=== PATIENT | female | born 1955 | race Caucasian/White ===

== ENCOUNTER → 2017-10-19 13:35 | Outpatient (CLI) | payer BC, SELFPAY ==
[2017-10-19 14:56] LABS: AST(SGOT) 19 U/L (15-37); Alanine Aminotransfer ALT/SGPT 27 U/L (13-56); Albumin, Serum 3.6 g/dL (3.2-5.0); Alkaline Phosphatase 71 U/L (45-117); Bilirubin, Direct 0.13 mg/dL (0.00-0.30); Cholesterol 133 mg/dL (200); Globulin 3.6 g/dL (2.2-4.2); High Density Lipoprotein 34 mg/dL; Protein, Total 7.2 g/dL (6.4-8.2); Triglycerides 196 mg/dL; Very Low Density Lipoprotein 39 mg/dL (5-40)
== END ==
PROVIDERS: Family Provider Internal Medicine; PCP Internal Medicine; Visit Provider Internal Medicine Cardiovascular Disease
DX: E78.5 Hyperlipidemia, unspecified (principal); I25.10 Atherosclerotic heart disease of native coronary artery without angina pectoris; Z95.1 Presence of aortocoronary bypass graft
CPT/HCPCS: 36415; 80061; 80076

== ENCOUNTER → 2017-11-28 15:28 | Outpatient (CLI) | payer BC, SELFPAY ==
--- NOTE | 2017-11-28 15:34 | RAD_ITS ---
STUDY: X-RAY - LUMBAR SPINE REASON FOR EXAM: Female, 62 years old. Fall TECHNIQUE: 5 view(s) of the lumbar spine were obtained. COMPARISON: None FINDINGS: Normal lumbar lordosis. There is no substantial scoliosis. There is a normal alignment of the vertebrae. Minimal spurring at the endplates. Mild depression of T11 and T12 superior endplate. Normal disc space heights. The soft tissue structures are unremarkable. Calcified aorta. RAD/L/S Spine Min 4 Views IMPRESSION: Mild depression of the superior endplate of T12 and T11. Electronically Signed: Anant Mancera DO at 18:09 EDT Tel [phone], Service support ,
== END ==
PROVIDERS: Family Provider Internal Medicine; PCP Internal Medicine; Visit Provider Chiropractor
DX: S33.5XXA Sprain of ligaments of lumbar spine, initial encounter (principal)
CPT/HCPCS: 72110

== ENCOUNTER 2018-10-24 13:03 | Observation (INO) | payer BC, SELFPAY ==
[2018-06-07 15:06] VITALS: BMI 35.9
[2018-10-24] VITALS (9 sets, daily range): BP systolic 136–194; BP diastolic 62–98; PULSE 60–93; RESP 16–22; TEMP 36.5–36.7; O2SAT 96–99; BMI 37.8; BMI 36.6
--- NOTE | 2018-10-24 13:10 | RAD_ITS ---
STUDY: X-RAY CHEST REASON FOR EXAM: Female, 63 years old. Chest pain. TECHNIQUE: Single AP portable view of the chest. COMPARISON: Comparison is made with prior study dated April 05, 2017. FINDINGS: EKG electrodes are seen. The lungs are clear and expanded. There is no demonstrated pleural abnormality. Sternal cerclage wires and vascular clips are present from a prior sternotomy and coronary artery bypass graft procedure (CABG). Normal mediastinum and efren. Normal visualized pulmonary arteries. There is atherosclerotic calcification of the aortic arch with tortuosity. Normal visualized thoracic spine. Normal visualized ribs, clavicles, and shoulders. There is no demonstrated abnormality of the visualized soft tissue structures of the upper abdomen. RAD/Chest 1 View (Portable) IMPRESSION: No acute abnormality is seen. Electronically Signed: Bo Sadler, at 13:35 EDT , Service support ,
--- NOTE | 2018-10-24 13:10 | EKG12_ITS ---
Test Reason : CP Blood Pressure : / mmHG Vent. Rate : 088 BPM Atrial Rate : 088 BPM P-R Int : 182 ms QRS Dur : 098 ms QT Int : 372 ms P-R-T Axes : 033 -18 126 degrees QTc Int : 450 ms Normal sinus rhythm Nonspecific T wave abnormality Poor R wave progression Abnormal ECG Confirmed by ELLYN JENKINS, SUZANNE ([id number]), editor publications RAYMUNDO HERNANDEZ ([id number]) on 10/28/2018 4:16:22 PM Referred By: NGUYỄN/MADI Confirmed By:SUZANNE RAGLAND MD
[2018-10-24] MEDS: Aspirin 81 MG TAB.CHEW 324 MG PO (13:20)
[2018-10-24 13:21] LABS: Absolute Neutrophil Count 6.4 X10^3/uL (2.0-7.7); Basophil# 0.03 X10^3/uL; Basophil% 0.3 % (0-1); Eosinophil# 0.18 X10^3/uL; Eosinophils% 1.7 % (0-5); Hematocrit 46.6 % (37-47); Hemoglobin 15.4 g/dl (12.0-15.0); Lymphocyte % 31.6 % (19-41); Mean Corpuscular Volume 81.8 fL (81-99); Mean Platelet Vol. 10.8 fl (6.2-12.0); Monocyte# 0.72 X10^3/uL; Monocyte% 6.7 % (0-10); Neutrophil # 6.42 X10^3/uL (2.7-7.7); Neutrophil % 59.5 % (47-70); Platelet Count 204 K/mm3 (150-450); RBC Distribution Width CV 15.5 % (11.6-14.6); RBC Distribution Width SD 46.6 fl (35.1-43.9); White Blood Count 10.8 K/mm3 (4.4-11.0)
[2018-10-24] MEDS: Nitroglycerin SL (ED/IMG/CATH) 0.4 MG TABLET SUBLINGUAL (13:21)
[2018-10-24 13:23] LABS: POSITIVE COUNT NO; POSITIVE DIFFERENTIAL NO; POSITIVE MORPHOLOGY NO
[2018-10-24 13:31] LABS: Anion Gap 9 (5-15); BUN 13 mg/dL (7-18); BUN/Creat Ratio 17.1 RATIO (10-20); Calcium,Total 8.9 mg/dL (8.5-10.1); Chloride 106 mmol/L (98-107); Creatinine, Serum 0.76 mg/dL (0.55-1.02); EST Glomerular Filtration Rate 82 mL/min (>60); Est Glom Filt Rate - Afr Amer 99 mL/min (>60); Glucose 190 mg/dL (74-106); Potassium 3.8 mmol/L (3.5-5.1); Sodium Level 138 mmol/L (136-145)
--- NOTE | 2018-10-24 15:36 | ED.VISSUMM ---
- ER Visit Summary Date of Service: 10/24/18 Chief Complaint: Sternal chest pain History of Present Illness: The patient is a 63 F history of CAD, prior LA, hypertension, high cholesterol, insulin-dependent diabetes and prior quadruple bypass in 2013 at [facility]. Patient states about a a.m. this morning she started having lower sternal chest pain. Denies any nausea, vomiting, diaphoresis or shortness of breath. Not specifically associated with exertion. Nothing particular makes the pain better or worse. She denies any history of DVT or PE. Is not pleuritic. No hemoptysis. No leg swelling. No recent hospitalization or surgery. Physical Examination: Vital signs are stable afebrile pulse ox 9 9% no hypoxia. HEENT exam unremarkable. Neck nontender. Lungs clear to auscultation bilaterally. Heart regular rhythm rate about 90 no murmur. Chest wall is not reproducibly tender. There is no signs of trauma. Abdomen is soft and nontender normal bowel sounds no peritoneal signs. Patient is moving all 4 extremities. Neurovascular intact. Calves are nontender without edema or cords. Neurologically patient is awake and alert with no focal motor deficits. Test Results: Patient underwent a cardiac work-up. Portable chest x-ray 1 view showed no acute abnormality. Prior sternotomy. Read both of myself and the radiologist. EKG sinus rhythm rate of 88. There is T wave flattening in leads V4 5 and 6 from prior EKG from March 2017. No acute LA. White count of 10. Hemoglobin 15. Electrolytes unremarkable normal creatinine and gap. Troponin normal. Emergency Department Course and Treatment: Patient treated with p.o. aspirin. Was given 1 sublingual nitro that did improve her pain. We will now add Nitropaste. Repeat exam patient is doing well. She and I discussed test results and plan. She is comfortable with admission. Treatment Plan: I have already spoken to the hospitalist and the patient will be admitted to the PCU. Disposition: Admission Impression: Acute chest pain of uncertain etiology History of CAD, insulin-dependent diabetes, hypertension and prior quadruple bypass This note was generated with [employer] dictation software. It may contain incorrect words, spelling, and punctuation that were not noted in review of the chart prior to signing ED Disposition - Plan for ED Patient: Referrals: Jaqueline Vo MD [Primary Care Provider] -
--- NOTE | 2018-10-24 15:39 | ED.DCSUM_ITS ---
- ER Visit Summary Date of Service: 10/24/18 Chief Complaint: Sternal chest pain History of Present Illness: The patient is a 63 F history of CAD, prior AL, hypertension, high cholesterol, insulin-dependent diabetes and prior quadruple bypass in 2013 at [facility]. Patient states about a a.m. this morning she started having lower sternal chest pain. Denies any nausea, vomiting, diaphoresis or shortness of breath. Not specifically associated with exertion. Nothing particular makes the pain better or worse. She denies any history of DVT or PE. Is not pleuritic. No hemoptysis. No leg swelling. No recent hospitalization or surgery. Physical Examination: Vital signs are stable afebrile pulse ox 9 9% no hypoxia. HEENT exam unremarkable. Neck nontender. Lungs clear to auscultation bilaterally. Heart regular rhythm rate about 90 no murmur. Chest wall is not reproducibly tender. There is no signs of trauma. Abdomen is soft and nontender normal bowel sounds no peritoneal signs. Patient is moving all 4 extremities. Neurovascular intact. Calves are nontender without edema or cords. Neurologically patient is awake and alert with no focal motor deficits. Test Results: Patient underwent a cardiac work-up. Portable chest x-ray 1 view showed no acute abnormality. Prior sternotomy. Read both of myself and the radiologist. EKG sinus rhythm rate of 88. There is T wave flattening in leads V4 5 and 6 from prior EKG from March 2017. No acute AL. White count of 10. Hemoglobin 15. Electrolytes unremarkable normal creatinine and gap. Troponin normal. Emergency Department Course and Treatment: Patient treated with p.o. aspirin. Was given 1 sublingual nitro that did improve her pain. We will now add Nitropaste. Repeat exam patient is doing well. She and I discussed test results and plan. She is comfortable with admission. Treatment Plan: I have already spoken to the hospitalist and the patient will be admitted to the PCU. Disposition: Admission Impression: Acute chest pain of uncertain etiology History of CAD, insulin-dependent diabetes, hypertension and prior quadruple bypass This note was generated with [employer] dictation software. It may contain incorrect words, spelling, and punctuation that were not noted in review of the chart prior to signing ED Disposition - Plan for ED Patient: Referrals: Jaqueline Vo MD [Primary Care Provider] -
--- NOTE | 2018-10-24 15:41 | ED.RN ---
pt took 81 mg aspirin earlier gave 243 mg.
[2018-10-24] MEDS: Nitroglycerin Oint 1 INCH PACKET TRANSDERM. (15:42)
--- NOTE | 2018-10-24 15:51 | PCM.HP.STD ---
Problem List (1) H/O coronary artery bypass surgery Status: Chronic Comment: CABG X 4 05/04/14, SVG-RCA, SVG-CX SVG-D1, BRUNO LAD (2) Atherosclerosis of coronary artery of [place] heart without angina pectoris Status: Chronic Qualifiers: (3) Hyperlipidemia Status: Chronic Qualifiers: (4) Hypertension Status: Chronic Qualifiers: (5) Type 2 diabetes mellitus Status: Chronic History of Present Illness Date of Admission: 10/24/18 Chief Complaint: Chest pain. The patient is a 63 year old F with past medical history as mentioned above presented to the emergency department because of chest pain. Her symptoms started this morning around 8 AM when she was going upstairs with chest pain, retrosternal chest pain, described as chest pressure, 4 out of 10 in severity, not radiating, no associated symptoms and without aggravating or relieving factors. Initially, her pain slightly improved but was constant and in the afternoon, the patient got worse again and she decided to come to the emergency department. She denied dizziness, lightheadedness, nausea, vomiting, sweating, syncope or presyncope. She has history of CAD status post CABG and she had stress echocardiogram on April, that was negative for ischemia by EKG and echocardiographic criteria, ejection fraction was 60%, mildly hypokinetic anterior basal wall. In the emergency department, initial blood pressure was elevated but improved. Routine blood work was unremarkable. EKG revealed normal sinus rhythm with nonspecific ST, T wave changes, no acute ST elevation. Troponin was negative. Chest x-ray showed no acute findings. She is being admitted for chest pain for evaluation. Past Medical History Past Medical History (Chronic Problems): Chronic Problems (Last Reviewed 10/19/17 @ 13:03 by Sherrie Yoder) Obesity (Chronic) H/O coronary artery bypass surgery (Chronic) CABG X 4 05/04/14, SVG-RCA, SVG-CX SVG-D1, BRUNO LAD Atherosclerosis of coronary artery of [place] heart without angina pectoris (Chronic) Old myocardial infarction (Chronic) Inferior wall Hyperlipidemia (Chronic) Hypertension (Chronic) Type 2 diabetes mellitus (Chronic) Medical History: Medical History (Last Reviewed 10/19/17 @ 13:03 by Sherrie Yoder) Obesity (Chronic) E66.9 Atherosclerosis of coronary artery of [place] heart without angina pectoris (Chronic) I25.10 Old myocardial infarction (Chronic) I25.2 Inferior wall Hyperlipidemia (Chronic) E78.5 Hypertension (Chronic) I10 Depression F32.9 Allergies Sulfa (Sulfonamide Antibiotics) Allergy (Verified 10/24/18 13:06) Hives hydrocodone bitartrate [From Vicodin] Adverse Reaction (Verified 10/24/18 13:06) Nausea Home Medications: Ambulatory Orders Medication Instructions Recorded Duloxetine Hcl [Cymbalta] 30 mg PO DAILY 10/07/15 Insulin Glargine,Hum.rec.anlog 20 unit SQ DAILY 10/07/15 [Lantus] Dulaglutide [Trulicity] 1.5 mg SQ TH 04/05/17 Aspirin E.C. [Ecotrin] 81 mg PO DAILY@0800 10/24/18 Empagliflozin [Jardiance] 25 mg PO DAILY 10/24/18 Lisinopril [Prinivil] 10 mg PO DAILY 10/24/18 Magnesium 250 mg PO DAILY 10/24/18 Metformin(XR) [Glucophage Xr] 1,000 mg PO DAILY 10/24/18 Metformin(XR) [Glucophage Xr] 500 mg PO DAILY 10/24/18 Metoprolol Tartrate [Lopressor 12.5 mg PO BID 10/24/18 (beta randal)] Pioglitazone HCl 15 mg PO DAILY 10/24/18 Rosuvastatin Calcium 40 mg PO DAILY 10/24/18 Surgical History: Surgical History (Last Updated 10/24/18 @ 15:46 by Margaret Suarez MD) H/O coronary artery bypass surgery (Chronic) Z95.1 CABG X 4 05/04/14, SVG-RCA, SVG-CX SVG-D1, BRUNO LAD History of carpal tunnel release Z98.890 History of cataract surgery Z98.49 Hx of cholecystectomy Z98.890, Z90.49 Surgical History: cholecystectomy, coronary bypass surgery, - - Carpal tunnel surgery Psychiatric History: Depression [employer] History: No pertinent [employer] history Smoking Status: Former smoker Alcohol: None Drugs: None - *Family History Maternal Family History: Family History (Last Reviewed 10/19/17 @ 13:03 by Sherrie Yoder) Mother CAD (coronary artery disease) History Items: Heart Disease Paternal Family History: Family History (Last Reviewed 10/19/17 @ 13:03 by Sherrie Yoder) Mother CAD (coronary artery disease) History Items: Diabetes, Hypertension Sibling Family History: Family History (Last Reviewed 10/19/17 @ 13:03 by Sherrie Yoder) Mother CAD (coronary artery disease) History Items: Stroke Review of Systems Constitutional: Denies: Anorexia, Chills, Fever, Weakness Eyes: Denies: Blurred vision, Double vision, Drainage, Redness HEENT: Denies: Difficulty Hearing, Ear Pain, Eye Pain, Nasal Congestion, Sore Throat Cardiovascular: Reports: Chest Pain, Chest Pressure. Denies: Edema, Heaviness, Light Headedness, Palpitations, Syncope Respiratory: Denies: Cough, Pleuritic Pain, Shortness of Breath, Sputum production, Wheezing Gastrointestinal: Denies: Abdominal Pain, Constipation, Diarrhea, Nausea, Vomiting Genitourinary: Denies: Dysuria, Frequency, Hematuria Musculoskeletal: Denies: Arm Pain, Back Pain, Foot Pain Skin: Denies: Dryness, Rash Neurological: Denies: Balance problems, Double vision, Change in Speech, Slurred speech, Confusion, Headaches, Incoordination Psychiatric: Denies: Anxiety, Depression Endocrine: Denies: Change in Body Habitus, Polydipsia VTE Information - Inpt Only VTE Present on Admission: No VTE Mechan Device Prophylaxis: None VTE Pharm Prophylaxis ordered?: Yes - Physical Exam General: Alert, Oriented x3, Cooperative, No apparent distress HEENT: Atraumatic, PERRLA, EOMI, Normocephalic Oral: Moist Mucosa, No Gingival or Mucosal Lesions/ Ulcerations Neck: Supple, No JVD, Negative Carotid Bruits, Trachea Midline, Thyroid Normal Size and Texture Lungs: Clear to auscultation, Normal air movement, No rhonchi, No wheeze, No rales Cardiovascular: Regular rate, Regular Rhythm, Normal S1, Normal S2, No murmurs, PMI Normal Abdomen: Bowel Sounds Present, Soft, Non Tender, Non-Distended, No Hepato-splenomegaly Extremities: No clubbing, No cyanosis, No edema Skin: No rashes, No breakdown Lymphatic: No Cervical, Supraclavicular, or Inguinal Adenopathy Neurological: Cranial nerves II-XII grossly intact, Motor Exam 5/5 strength throughout Psych/Mental Status: Normal Affect, Appropriate, Alert and oriented to time, place, person, mood and affect Vital Signs Temp Pulse Resp BP Pulse Ox 97.7 F L 72 18 142/62 H 97 10/24/18 13:03 10/24/18 15:42 10/24/18 15:42 10/24/18 15:42 10/24/18 15:42 Oxygen Delivery Method Room Air Weight: 206 lb 12.697 oz Body Mass Index (BMI) 37.8 Laboratory Tests Past 24 Hrs 10/24/18 10/24/18 12:58 12:58 WBC 10.8 RBC 5.70 H Hgb 15.4 H Hct 46.6 MCV 81.8 MCH 27.0 MCHC 33.0 RDW 15.5 H RDW Differential 46.6 H Plt Count 204 MPV 10.8 Immature Gran % (Auto) 0.200 Neut % (Auto) 59.5 Lymph % (Auto) 31.6 [place] % (Auto) 6.7 Eos % (Auto) 1.7 Baso % (Auto) 0.3 Absolute Neuts (auto) 6.4 Absolute Lymphs (auto) 3.40 Total Counted Not Reportable Sodium 138 Potassium 3.8 Chloride 106 Carbon Dioxide 23.0 Anion Gap 9 BUN 13 Creatinine 0.76 Estim Creat Clear Calc 60.70 Est GFR (MDRD) Af Amer 99 Est GFR (MDRD) Non-Af 82 BUN/Creatinine Ratio 17.1 Glucose 190 H Calcium 8.9 Troponin I < 0.015 Clinical Impression(s) from Imaging Studies Chest X-Ray 10/24/18 13:10 IMPRESSION: No acute abnormality is seen. Electronically Signed: Bo Sadler, at 13:35 EDT , Service support , Assessment/Plan This is a 63 years old female patient presented to the medicine because of chest pain and she is being admitted for evaluation. #1 chest pain: Risk factors are history of CAD with CABG, age, diabetes, hypertension and hyperlipidemia. Initial EKG revealed no acute ischemic changes. Troponin is negative. Chest x-ray without acute findings. Plan: Admit to PCU for observation, cardiac monitoring, serial cardiac enzymes, repeat EKG tomorrow morning, sublingual nitro as needed for chest pain, IV fluids, IV antiemetics, nuclear stress test tomorrow morning if cardiac enzymes are negative. #2 CAD status post CABG: Plan as above, continue aspirin, statins, hold metoprolol because patient with a stress test tomorrow, continue lisinopril. #4 type 2 diabetes mellitus: ADA diet, Accu-Cheks, insulin sliding scale, continue home dose of Lantus, continue pioglitazone, hold metformin for now. Blood pressure was elevated initially, improved afterwards. #5 hypertension: Continue lisinopril, hold metoprolol as mentioned above, IV hydralazine PRN. #6 hyperlipidemia: Continue statins. #6 DVT prophylaxis: Subcu Lovenox. This note was generated with [employer] dictation software. It may contain incorrect words, spelling, and punctuation that were not noted in checking the note before signing. Code Visit OBSV E&M: 24534 Initial observation care L3
--- NOTE | 2018-10-24 15:55 | HP.PCM_ITS ---
Problem List (1) H/O coronary artery bypass surgery Status: Chronic Comment: CABG X 4 05/04/14, SVG-RCA, SVG-CX SVG-D1, BRUNO LAD (2) Atherosclerosis of coronary artery of [place] heart without angina pectoris Status: Chronic Qualifiers: (3) Hyperlipidemia Status: Chronic Qualifiers: (4) Hypertension Status: Chronic Qualifiers: (5) Type 2 diabetes mellitus Status: Chronic History of Present Illness Date of Admission: 10/24/18 Chief Complaint: Chest pain. The patient is a 63 year old F with past medical history as mentioned above presented to the emergency department because of chest pain. Her symptoms star mor this morning around 8 AM when she was going upstairs with chest pain, retrosternal chest pain, described as chest pressure, 4 out of 10 in severity, not radiating, no associated symptoms and without aggravating or relieving factors. Initially, her pain slightly improved but was constant and in the afternoon, the patient got worse again and she decided to come to the emergency department. She denied dizziness, lightheadedness, nausea, vomiting, sweating, syncope or presyncope. She has history of CAD status post CABG and she had stress echocardiogram on April, that was negative for ischemia by EKG and echocardiographic criteria, ejection fraction was 60%, mildly hypokinetic anterior basal wall. In the emergency department, initial blood pressure was elevated but improved. Routine blood work was unremarkable. EKG revealed normal sinus rhythm with nonspecific ST, T wave changes, no acute ST elevation. Troponin was negative. Chest x-ray showed no acute findings. She is being admitted for chest pain for evaluation. Past Medical History Past Medical History (Chronic Problems): Chronic Problems (Last Reviewed 10/19/17 @ 13:03 by Sherrie Yoder) Obesity (Chronic) H/O coronary artery bypass surgery (Chronic) CABG X 4 05/04/14, SVG-RCA, SVG-CX SVG-D1, BRUNO LAD Atherosclerosis of coronary artery of [place] heart without angina pectoris (Chronic) Old myocardial infarction (Chronic) Inferior wall Hyperlipidemia (Chronic) Hypertension (Chronic) Type 2 diabetes mellitus (Chronic) Medical History: Medical History (Last Reviewed 10/19/17 @ 13:03 by Sherrie Yoder) Obesity (Chronic) E66.9 Atherosclerosis of coronary artery of [place] heart without angina pectoris (Chronic) I25.10 Old myocardial infarction (Chronic) I25.2 Inferior wall Hyperlipidemia (Chronic) E78.5 Hypertension (Chronic) I10 Depression F32.9 Allergies Sulfa (Sulfonamide Antibiotics) Allergy (Verified 10/24/18 13:06) Hives hydrocodone bitartrate [From Vicodin] Adverse Reaction (Verified 10/24/18 13:06) Nausea Home Medications: Ambulatory Orders Medication Instructions Recorded Duloxetine Hcl [Cymbalta] 30 mg PO DAILY 10/07/15 Insulin Glargine,Hum.rec.anlog 20 unit SQ DAILY 10/07/15 [Lantus] Dulaglutide [Trulicity] 1.5 mg SQ TH 04/05/17 Aspirin E.C. [Ecotrin] 81 mg PO DAILY@0800 10/24/18 Empagliflozin [Jardiance] 25 mg PO DAILY 10/24/18 Lisinopril [Prinivil] 10 mg PO DAILY 10/24/18 Magnesium 250 mg PO DAILY 10/24/18 Metformin(XR) [Glucophage Xr] 1,000 mg PO DAILY 10/24/18 Metformin(XR) [Glucophage Xr] 500 mg PO DAILY 10/24/18 Metoprolol Tartrate [Lopressor 12.5 mg PO BID 10/24/18 (beta randal)] Pioglitazone HCl 15 mg PO DAILY 10/24/18 Rosuvastatin Calcium 40 mg PO DAILY 10/24/18 Surgical History: Surgical History (Last Updated 10/24/18 @ 15:46 by Margaret Suarez MD) H/O coronary artery bypass surgery (Chronic) Z95.1 CABG X 4 05/04/14, SVG-RCA, SVG-CX SVG-D1, BRUNO LAD History of carpal tunnel release Z98.890 History of cataract surgery Z98.49 Hx of cholecystectomy Z98.890, Z90.49 Surgical History: cholecystectomy, coronary bypass surgery, - - Carpal tunnel surgery Psychiatric History: Depression 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 Smoking Status: Former smoker Alcohol: None Drugs: None - *Family History Maternal Family History: Family History (Last Reviewed 10/19/17 @ 13:03 by Sherrie Yoder) Mother CAD (coronary artery disease) History Items: Heart Disease Paternal Family History: Family History (Last Reviewed 10/19/17 @ 13:03 by Sherrie Yoder) Mother CAD (coronary artery disease) History Items: Diabetes, Hypertension Sibling Family History: Family History (Last Reviewed 10/19/17 @ 13:03 by Sherrie Yoder) Mother CAD (coronary artery disease) History Items: Stroke Review of Systems Constitutional: Denies: Anorexia, Chills, Fever, Weakness Eyes: Denies: Blurred vision, Double vision, Drainage, Redness HEENT: Denies: Difficulty Hearing, Ear Pain, Eye Pain, Nasal Congestion, Sore Throat Cardiovascular: Reports: Chest Pain, Chest Pressure. Denies: Edema, Heaviness, Light Headedness, Palpitations, Syncope Respiratory: Denies: Cough, Pleuritic Pain, Shortness of Breath, Sputum production, Wheezing Gastrointestinal: Denies: Abdominal Pain, Constipation, Diarrhea, Nausea, Vomiting Genitourinary: Denies: Dysuria, Frequency, Hematuria Musculoskeletal: Denies: Arm Pain, Back Pain, Foot Pain Skin: Denies: Dryness, Rash Neurological: Denies: Balance problems, Double vision, Change in Speech, Slurred speech, Confusion, Headaches, Incoordination Psychiatric: Denies: Anxiety, Depression Endocrine: Denies: Change in Body Habitus, Polydipsia VTE Information - Inpt Only VTE Present on Admission: No VTE Mechan Device Prophylaxis: None VTE Pharm Prophylaxis ordered?: Yes - Physical Exam General: Alert, Oriented x3, Cooperative, No apparent distress HEENT: Atraumatic, PERRLA, EOMI, Normocephalic Oral: Moist Mucosa, No Gingival or Mucosal Lesions/ Ulcerations Neck: Supple, No JVD, Negative Carotid Bruits, Trachea Midline, Thyroid Normal Size and Texture Lungs: Clear to auscultation, Normal air movement, No rhonchi, No wheeze, No rales Cardiovascular: Regular rate, Regular Rhythm, Normal S1, Normal S2, No murmurs, PMI Normal Abdomen: Bowel Sounds Present, Soft, Non Tender, Non-Distended, No Hepato- splenomegaly Extremities: No clubbing, No cyanosis, No edema Skin: No rashes, No breakdown Lymphatic: No Cervical, Supraclavicular, or Inguinal Adenopathy Neurological: Cranial nerves II-XII grossly intact, Motor Exam 5/5 strength throughout Psych/Mental Status: Normal Affect, Appropriate, Alert and oriented to time, place, person, mood and affect Vital Signs Temp Pulse Resp BP Pulse Ox 97.7 F L 72 18 142/62 H 97 10/24/18 13:03 10/24/18 15:42 10/24/18 15:42 10/24/18 15:42 10/24/18 15:42 Oxygen Delivery Method Room Air Weight: 206 lb 12.697 oz Body Mass Index (BMI) 37.8 Laboratory Tests Past 24 Hrs 10/24/18 10/24/18 12:58 12:58 WBC 10.8 RBC 5.70 H Hgb 15.4 H Hct 46.6 MCV 81.8 MCH 27.0 MCHC 33.0 RDW 15.5 H RDW Differential 46.6 H Plt Count 204 MPV 10.8 Immature Gran % (Auto) 0.200 Neut % (Auto) 59.5 Lymph % (Auto) 31.6 [place] % (Auto) 6.7 Eos % (Auto) 1.7 Baso % (Auto) 0.3 Absolute Neuts (auto) 6.4 Absolute Lymphs (auto) 3.40 Total Counted Not Reportable Sodium 138 Potassium 3.8 Chloride 106 Carbon Dioxide 23.0 Anion Gap 9 BUN 13 Creatinine 0.76 Estim Creat Clear Calc 60.70 Est GFR (MDRD) Af Amer 99 Est GFR (MDRD) Non-Af 82 BUN/Creatinine Ratio 17.1 Glucose 190 H Calcium 8.9 Troponin I < 0.015 Clinical Impression(s) from Imaging Studies Chest X-Ray 10/24/18 13:10 IMPRESSION: No acute abnormality is seen. Electronically Signed: Bo Sadler, at 13:35 EDT , Service support , Assessment/Plan This is a 63 years old female patient presented to the medicine because of chest pain and she is being admitted for evaluation. #1 chest pain: Risk factors are history of CAD with CABG, age, diabetes, hypertension and hyperlipidemia. Initial EKG revealed no acute ischemic changes. Troponin is negative. Chest x-ray without acute findings. Plan: Admit to PCU for observation, cardiac monitoring, serial cardiac enzymes, repeat EKG tomorrow morning, sublingual nitro as needed for chest pain, IV fluids, IV antiemetics, nuclear stress test tomorrow morning if cardiac enzymes are negativ e. #2 CAD status post CABG: Plan as above, continue aspirin, statins, hold metoprolol because patient with a stress test tomorrow, continue lisinopril. #4 type 2 diabetes mellitus: ADA diet, Accu-Cheks, insulin sliding scale, continue home dose of Lantus, continue pioglitazone, hold metformin for now. Blood pressure was elevated initially, improved afterwards. #5 hypertension: Continue lisinopril, hold metoprolol as mentioned above, IV hydralazine PRN. #6 hyperlipidemia: Continue statins. #6 DVT prophylaxis: Subcu Lovenox. This note was generated with Cozi dictation software. It may contain incorrect words, spelling, and punctuation that were not noted in checking the note before signing. Code Visit OBSV E&M: 73570 Initial observation care L3
--- NOTE | 2018-10-24 16:02 | NURSING ---
122 ASHELFAH OBS CP
--- NOTE | 2018-10-24 16:33 | EKG12_ITS ---
Test Reason : Blood Pressure : / mmHG Vent. Rate : 067 BPM Atrial Rate : 067 BPM P-R Int : 194 ms QRS Dur : 092 ms QT Int : 438 ms P-R-T Axes : 035 -35 042 degrees QTc Int : 462 ms Normal sinus rhythm Left axis deviation Poor R wave progression Abnormal ECG Confirmed by ELLYN JENKINS, SUZANNE ([id number]), associate entertainment editor RAYMUNDO HERNANDEZ ([id number]) on 10/28/2018 4:33:12 PM Referred By: KAITLYN Confirmed By:SUZANNE RAGLAND MD
[2018-10-24] MEDS: 0.9% Normal Saline 1,000 ML 75 ML IV (16:40)
[2018-10-24] MEDS: Acetaminophen 325 MG Tablet 650 MG PO (16:41)
[2018-10-24 17:01] LABS: Bedside Glucose 169 mg/dL (70-110)
[2018-10-24] MEDS: Atorvastatin Calcium 80 MG Tablet PO (22:06)
[2018-10-24] MEDS: Insulin Lispro 100 UNIT/ML INSULN.PEN SC (22:06)
[2018-10-24 22:15] LABS: Bedside Glucose 196 mg/dL (70-110)
[2018-10-25 03:00] VITALS: PULSE 64
[2018-10-25 03:54] VITALS: BP 151/56; PULSE 65; RESP 18; TEMP 36.4; O2SAT 95
[2018-10-25] MEDS: Acetaminophen 325 MG Tablet 650 MG PO ×2 (04:02→10:20)
[2018-10-25 05:12] LABS: Mean Corp Hgb Conc 33.3 g/gl (32-36); Mean Corpuscular Hgb 26.7 pg (27.0-32.0); Mean Corpuscular Volume 80.1 fL (81-99); Mean Platelet Vol. 11.3 fl (6.2-12.0); Platelet Count 136 K/mm3 (150-450); RBC Distribution Width CV 15.5 % (11.6-14.6); RBC Distribution Width SD 44.4 fl (35.1-43.9); Red Blood Count 4.87 M/mm3 (4.2-5.4); White Blood Count 6.5 K/mm3 (4.4-11.0)
[2018-10-25 05:17] LABS: Scan Indicated on CBC? Y/N NO
[2018-10-25 05:20] LABS: International Normalized Ratio 1.1; Prothrombin Time (Protime)PT. 14.1 SECONDS (11.7-14.9)
[2018-10-25 05:21] LABS: Partial Thromboplast Time 32.6 Seconds (24.1-36.2)
[2018-10-25 05:33] LABS: BUN 13 mg/dL (7-18); Creatinine, Serum 0.54 mg/dL (0.55-1.02); Estimated Creatinine Clearance 81.51 ml/min; Glucose 145 mg/dL (74-106)
[2018-10-25 05:34] LABS: Anion Gap 7 (5-15); BUN/Creat Ratio 24.3 RATIO (10-20); Calcium,Total 8.4 mg/dL (8.5-10.1); Chloride 111 mmol/L (98-107); EST Glomerular Filtration Rate 123 mL/min (>60); Est Glom Filt Rate - Afr Amer 148 mL/min (>60); Potassium 3.9 mmol/L (3.5-5.1); Sodium Level 143 mmol/L (136-145)
[2018-10-25 05:37] VITALS: BP 123/44; PULSE 63; RESP 18; TEMP 36.6; O2SAT 95
[2018-10-25] MEDS: Aspirin E.C. 81 MG Tablet PO (05:42)
[2018-10-25] MEDS: Lisinopril 10 MG Tablet PO (05:42)
--- NOTE | 2018-10-25 05:55 | EKG12_ITS ---
Test Reason : AM EKG Blood Pressure : / mmHG Vent. Rate : 062 BPM Atrial Rate : 062 BPM P-R Int : 214 ms QRS Dur : 092 ms QT Int : 466 ms P-R-T Axes : 042 -31 044 degrees QTc Int : 472 ms Sinus rhythm with 1st degree A-V block Left axis deviation Poor R wave progression Abnormal ECG Confirmed by ELLYN JENKINS, SUZANNE ([id number]), assistant production editor RAYMUNDO HERNANDEZ ([id number]) on 10/28/2018 4:28:37 PM Referred By: VICKI Confirmed By:SUZANNE RAGLAND MD
[2018-10-25 06:20] LABS: Bedside Glucose 160 mg/dL (70-110)
[2018-10-25 08:36] VITALS: PULSE 72
--- NOTE | 2018-10-25 09:18 | STRESSREP ---
Stress Test Report Date: Procedure: Pharmacologic stress nuclear imaging study Indications: Chest pain; CAD; CABG Consent: Per the patient Procedure: The patient underwent pharmacologic (Regadenoson) evaluation with a peak heart rate of 78 beats per minute (49 %predicted maximal heart rate) and a peak blood pressure of 118/82 mmHg. The baseline ECG demonstrated normal sinus rhythm. The peak pharmacologic ECG demonstrated no obvious ECG changes. There were no cardiac dysrhythmias pretest, during pharmacologic infusion, or recovery. There was no complaint of chest discomfort during pharmacologic infusion or recovery. The examination was discontinued secondary to completion of protocol. Impression: 1. Pharmacologic (Regadenoson) evaluation 2. Peak pharmacologic ECG with no obvious ECG changes. 3. There were no cardiac dysrhythmias pretest, during pharmacologic infusion, or recovery. 4. Nuclear images pending Myocardial perfusion imaging study: Technique: The patient was injected with 14.2 millicuries of technetium 99m Cardiolite and subsequently rest SPECT Cardiolite nuclear imaging was obtained in the horizontal long, vertical long, and short axis views. The patient underwent pharmacologic (Regadenoson) evaluation with a peak heart rate of 78 beats per minute (49 % percent predicted maximal heart rate) and a peak blood pressure of 118/82 mmHg. The patient was injected with 44.3 millicuries of technetium 99m Cardiolite and subsequently stress SPECT Cardiolite nuclear imaging was obtained in the horizontal long, vertical long, and short axis views. A gated Cardiolite study at peak stress was obtained. Interpretation: Rest and stress SPECT Cardiolite nuclear imaging status post realignment, normalization, and attenuation correction demonstrate a small area of subtle diminished tracer uptake near the apical segments at both rest and stress. There is end systolic thickening and brightening. The gated Cardiolite study demonstrates myocardial thickening and inward wall motion. The reported LVEF is 75 %. Impression: 1. Rest and stress SPECT currently nuclear imaging demonstrate a small area of subtle diminished tracer uptake near the apical segments at both rest and stress appearing compatible defects of physiologic apical thinning with no myocardial perfusion changes considered diagnostic for associated stress-induced myocardial ischemia. 2. The gated Cardiolite study reports an LVEF of 75 %. This note was generated with Pockethernetation software. It may contain incorrect words, spelling, and punctuation that were not noted in checking the note before signing.
[2018-10-25] MEDS: Magnesium Oxide 400 MG Tablet PO (10:16)
[2018-10-25] MEDS: Empagliflozin 25 MG Tablet PO (10:16)
[2018-10-25] MEDS: Pioglitazone Hydrochloride 15 MG Tablet PO (10:16)
[2018-10-25] MEDS: DULoxetine Hcl 30 MG Capsule PO (10:16)
[2018-10-25] MEDS: Insulin Lispro 100 UNIT/ML INSULN.PEN SC (10:17)
[2018-10-25 11:30] VITALS: BP 125/59; PULSE 62; RESP 18; TEMP 36.5; O2SAT 96
--- NOTE | 2018-10-25 11:46 | DCINST_ITS ---
You will use the following diet at home:: Calorie/Carbohydrate Controlled (specify 1200, 1400, etc) - 1800 Your food should be the consistency of: Regular Your liquids should be the consistency of: Regular/Thin Discharge Activity: Return to Normal Activity Allergies/Adverse Reactions: Allergies Sulfa (Sulfonamide Antibiotics) Allergy (Verified 10/24/18 13:06) Hives hydrocodone bitartrate [From Vicodin] Adverse Reaction (Verified 10/24/18 13:06) Nausea Medications to take at Discharge Duloxetine Hcl [Cymbalta] 30 mg PO DAILY 10/07/15 Insulin Glargine,Hum.rec.anlog [Lantus] 20 unit SQ DAILY 10/07/15 Dulaglutide [Trulicity] 1.5 mg SQ TH 04/05/17 Aspirin E.C. [Ecotrin] 81 mg PO DAILY@0800 10/24/18 Empagliflozin [Jardiance] 25 mg PO DAILY 10/24/18 Lisinopril [Prinivil] 10 mg PO DAILY 10/24/18 Magnesium 250 mg PO DAILY 10/24/18 Metformin(XR) [Glucophage Xr] 1,000 mg PO DAILY 10/24/18 Metformin(XR) [Glucophage Xr] 500 mg PO DAILY 10/24/18 Metoprolol Tartrate [Lopressor (beta randal)] 12.5 mg PO BID 10/24/18 Pioglitazone HCl 15 mg PO DAILY 10/24/18 Rosuvastatin Calcium 40 mg PO DAILY 10/24/18 Primary Care Physician: Jaqueline Vo MD [Primary Care Provider] - Please follow up with your Primary Care Physician in: as directed Test Results: Test results from this visit will be discussed in further detail at your follow- up appointment, if applicable.
--- NOTE | 2018-10-25 19:25 | DS.PCM_ITS ---
Discharge Date and Diagnosis Date of Admission: 10/24/18 Date of Discharge: 10/25/18 - Primary Discharge Diagnosis #1 musculoskeletal chest pain #2 coronary artery disease #3 type 2 diabetes #4 hypertension #5 hyperlipidemia - Secondary Discharge Diagnosis Chronic Problems (Last Reviewed 10/19/17 @ 13:03 by Sherrie Yoder) Obesity (Chronic) H/O coronary artery bypass surgery (Chronic) CABG X 4 05/04/14, SVG-RCA, SVG-CX SVG-D1, BRUNO LAD Atherosclerosis of coronary artery of [place] heart without angina pectoris (Chronic) Old myocardial infarction (Chronic) Inferior wall Hyperlipidemia (Chronic) Hypertension (Chronic) Type 2 diabetes mellitus (Chronic) Hospital Course and Treatment Operations: None Procedures: Nuclear stress test Summary of Care Provided: The patient is a 63 year old F who was seen in the emergency room at [facility] with chief complaint of substernal chest pain, patient underwent a quadruple bypass in [address] [facility], she complained of lower substernal chest pain not associated with exertion the day she was seen in the emergency room here. Work-up in the emergency room included a chest x-ray that showed no acute abnormality, EKG showed a sinus rhythm at 88 with some T wave flattening the lead V4, V5, and V6. Electrolytes were unremarkable and troponin was normal. Patient was given 1 sublingual nitro that improved her chest discomfort. Patient describes her chest discomfort as a dull feeling. Patient was placed in observation status on PCU, enzymes were cycled and they remain normal, patient underwent a nuclear pharmacological stress test which did not show evidence of reversible ischemia. On 10/25/2018, patient was seen and examined: On examination she appeared in good health and spirits. Vital signs as documented. Skin warm and dry and without overt rashes. Neck without JVD. Lungs clear. Heart exam notable for regular rhythm, normal sounds and absence of murmurs, rubs or gallops. Abdomen unremarkable and without evidence of organomegaly, masses, or abdominal aortic enlargement. Extremities nonedematous. Neuro: Cranial nerves II through XII are grossly intact, no focal motor deficits were noted, sensation to light touch and pinprick is intact. Psych: Patient is alert and oriented x3, she does not appear anxious or depressed On 10/25/2018, patient was seen and examined felt to be in stable condition for discharge home - Physical Exam Vital Signs Temp Pulse Resp BP Pulse Ox 97.7 F L 62 18 125/59 H 96 10/25/18 11:30 10/25/18 11:30 10/25/18 11:30 10/25/18 11:30 10/25/18 11:30 Oxygen Delivery Method Room Air Weight: 90.265 kg Body Mass Index (BMI) 36.6 Intake and Output for Last 24 Hours 10/23/18 10/24/18 10/25/18 23:59 23:59 23:59 Intake Total 360 / 360 1101 / 1101 Balance 360 / 360 1101 / 1101 Laboratory Tests Past 24 Hrs 10/24/18 10/25/18 10/25/18 20:00 05:00 05:00 WBC 6.5 RBC 4.87 Hgb 13.0 Hct 39.0 MCV 80.1 L MCH 26.7 L MCHC 33.3 RDW 15.5 H RDW Differential 44.4 H Plt Count 136 L MPV 11.3 PT 14.1 INR 1.1 APTT 32.6 Sodium Potassium Chloride Carbon Dioxide Anion Gap BUN Creatinine Estim Creat Clear Calc Est GFR (MDRD) Af Amer Est GFR (MDRD) Non-Af BUN/Creatinine Ratio Glucose Calcium Troponin I < 0.015 10/25/18 05:00 WBC RBC Hgb Hct MCV MCH MCHC RDW RDW Differential Plt Count MPV PT INR APTT Sodium 143 Potassium 3.9 Chloride 111 H Carbon Dioxide 25.0 Anion Gap 7 BUN 13 Creatinine 0.54 L Estim Creat Clear Calc 81.51 Est GFR (MDRD) Af Amer 148 Est GFR (MDRD) Non-Af 123 BUN/Creatinine Ratio 24.3 H Glucose 145 H Calcium 8.4 L Troponin I POC Glucose 10/25/18 10/24/18 06:15 21:59 POC Glucose 160 H 196 H Discharge Activity: Return to Normal Activity Home Medications: Medications to take at Discharge Duloxetine Hcl [Cymbalta] 30 mg PO DAILY 10/07/15 Insulin Glargine,Hum.rec.anlog [Lantus] 20 unit SQ DAILY 10/07/15 Dulaglutide [Trulicity] 1.5 mg SQ TH 04/05/17 Aspirin E.C. [Ecotrin] 81 mg PO DAILY@0800 10/24/18 Empagliflozin [Jardiance] 25 mg PO DAILY 10/24/18 Lisinopril [Prinivil] 10 mg PO DAILY 10/24/18 Magnesium 250 mg PO DAILY 10/24/18 Metformin(XR) [Glucophage Xr] 1,000 mg PO DAILY 10/24/18 Metformin(XR) [Glucophage Xr] 500 mg PO DAILY 10/24/18 Metoprolol Tartrate [Lopressor (beta randal)] 12.5 mg PO BID 10/24/18 Pioglitazone HCl 15 mg PO DAILY 10/24/18 Rosuvastatin Calcium 40 mg PO DAILY 10/24/18 Primary Care Physician: Jaqueline Vo MD [Primary Care Provider] - Please follow up with your Primary Care Physician in: as directed Disposition: Home Minutes spent on discharge:: 30 Patient Condition:: Stable Medical Necessity - Tobacco Use Smoking Status: Former smoker Tobacco Use: Cigarettes Meaningful Use Info Meaningful Use Diagnoses (Choose all that apply): None applicable Code Visit Inpatient E&M: 91495 Subs Hosp L2
== END 2018-10-25 11:45 | disposition home or self-care (01) ==
LOC: ED 13:26 → PCU 15:58
PROVIDERS: Admitting Provider Hospitalist; Emergency Provider Emergency Medicine; Family Provider Internal Medicine; PCP Internal Medicine; Visit Provider Internal Medicine
DX: R07.89 Other chest pain (principal); I25.10 Atherosclerotic heart disease of native coronary artery without angina pectoris; I25.2 Old myocardial infarction; I10 Essential (primary) hypertension; E11.9 Type 2 diabetes mellitus without complications; Z79.4 Long term (current) use of insulin; Z95.1 Presence of aortocoronary bypass graft; E78.5 Hyperlipidemia, unspecified; E66.9 Obesity, unspecified; Z68.36 Body mass index [BMI] 36.0-36.9, adult; Z71.3 Dietary counseling and surveillance; Z79.899 Other long term (current) drug therapy; Z79.82 Long term (current) use of aspirin; Z87.891 Personal history of nicotine dependence; F32.9 Major depressive disorder, single episode, unspecified
CPT/HCPCS: 36415; 71045; 78452; 80048; 82962; 84484; 85025; 85027; 85610; 85730; 93005; 93017; 96360; 96361; 99218; 99282; A9500; J7030; A4216; G0378; J2785

== ENCOUNTER → 2020-08-10 07:27 | Outpatient (CLI) | payer BC, SELFPAY ==
[2020-02-06 09:37] VITALS: BMI 35.1
--- NOTE | 2020-08-10 07:34 | CT_ITS ---
STUDY: CT MAXILLOFACIAL SINUSES REASON FOR EXAM: Female, 65 years old. SINUSITIS RADIATION DOSAGE (If Supplied By Facility): CTDIvol = ( 33.06 ) mGy, DLP = ( 734.68 ) mGycm TECHNIQUE: The patient was scanned in a multi detector CT scanner. High resolution axial imaging was performed without the administration of intravenous contrast material. Sagittal and coronal images were reconstructed. Individualized dose optimization techniques were used for this CT. COMPARISON: None. FINDINGS: FRONTAL SINUSES: Normal aeration, without mucosal inflammatory disease. ETHMOIDAL SINUSES: Normal aeration, without mucosal inflammatory disease. MAXILLARY SINUSES: Normal aeration, without mucosal inflammatory disease. SPHENOIDAL SINUSES: Normal aeration, without mucosal inflammatory disease. There is patency of the bilateral maxillary infundibuli with normal uncinate processes, ethmoid bullae, and hiatus semilunaris. Normal bilateral middle turbinates. Normal bilateral inferior turbinates. Normal midline nasal septum. There is patency of the bilateral nasal airways. The visualized osseous structures are normal. The visualized bilateral orbital contents are normal. Calcification of the carotid bifurcations bilaterally. CT/Sinus/Facial Bone IMPRESSION: Normal CT examination of the maxillofacial sinuses. Electronically Signed: Bo Sadler MD at 9:23 EST , Service support ,
== END ==
PROVIDERS: PCP Internal Medicine; Referring Provider Otolaryngology; Visit Provider Otolaryngology
DX: J32.9 Chronic sinusitis, unspecified (principal)
CPT/HCPCS: 70486

== ENCOUNTER 2020-09-29 08:08 | Outpatient (RCR) | payer BC, SELFPAY ==
[2020-02-06 09:37] VITALS: BMI 35.1
[2020-09-29] MEDS: COVID-19 VACC, MRNA(PFIZER)/PF 30 MCG/0.3 ML SYRINGE IM (13:50)
[2020-10-20] MEDS: COVID-19 VACC, MRNA(PFIZER)/PF 30 MCG/0.3 ML SYRINGE IM (13:09)
== END 2020-11-16 23:59 ==
LOC: IMMUN 08:08
PROVIDERS: PCP Internal Medicine; Referring Provider Family Medicine; Visit Provider Family Medicine
DX: Z23 Encounter for immunization (principal)
CPT/HCPCS: 0001A; 0002A; 91300

== ENCOUNTER 2021-02-14 21:01 | Emergency (ER) | payer BC, SELFPAY ==
[2021-02-14 21:02] VITALS: BP 132/63; PULSE 75; RESP 16; TEMP 36.3; O2SAT 97; BMI 34.7
--- NOTE | 2021-02-14 21:04 | RAD_ITS ---
STUDY: X-RAY - LEFT RADIUS AND ULNA REASON FOR EXAM: Female, 65 years old. LEFT ARM PAIN AFTER FALLING OUTSIDE TECHNIQUE: 2 view(s) of the forearm. COMPARISON: None. FINDINGS: There is no demonstrated soft tissue swelling. Normal visualized radius. Normal visualized ulna. There is no demonstrated acute fracture of the forearm. The lunate is partially collapsed and sclerotic likely due to sequela from avascular necrosis or prior trauma. RAD/Forearm 2 Views IMPRESSION: 1. No demonstrated acute process of the radius and ulna. 2. The lunate is partially collapsed and sclerotic likely due to sequela from avascular necrosis or prior trauma. Electronically Signed: José Miguel Guillermo MD at 22:23 EDT , Service support ,
--- NOTE | 2021-02-14 22:40 | EX.ED.UPPERE ---
HPI History of Present Illness Chief Complaint: Fall Informant: patient Occured/Mechanism Mechanism/Context: Yes injury Onset/Context/Timing Onset: Today Context: Sudden Onset Timing: Continuous Quality of Pain: Dull and Aching Current Severity: Mild Maximum Severity: Mild Narrative Narrative: 65-year-old female [id number]. Tripped and fell today landing on her left forearm complaining pain mid left forearm. Denies hitting her head. Denies any other injuries. No LOC. She has a history of diabetes and prior CABG. Prior similar symptoms: No Recent Illness/Hospitalization: No PFSH PFS Medical History (Updated 02/14/21 @ 22:[address] Triston Rodas MD) Atherosclerosis of coronary artery of [place] heart without angina pectoris Depression Hyperlipidemia Hypertension Obesity Old myocardial infarction Home Medications dulaglutide 1.5 mg SQ TH 04/05/17 [History Last Taken 10/17/18] aspirin 81 mg PO DAILY@0800 10/24/18 [History Last Taken 10/24/18] empagliflozin 25 mg PO DAILY 10/24/18 [History Last Taken 10/24/18] pioglitazone 15 mg PO DAILY 10/24/18 [History Last Taken 10/24/18] duloxetine 60 mg capsule,delayed release 60 mg PO DAILY 08/01/19 [History Last Taken Unknown] insulin glargine 100 unit/mL subcutaneous solution 20 unit SC DAILY 08/01/19 [History Last Taken Unknown] metformin 500 mg tablet,extended release 24 hr 500 mg PO .COMPLEX tab 08/01/19 [History Last Taken Unknown] metoprolol tartrate 25 mg tablet 12.5 mg PO BID #90 tab 09/22/20 [Rx Last Taken Unknown] rosuvastatin 40 mg tablet 40 mg PO DAILY #90 tab 09/22/20 [Rx Last Taken Unknown] lisinopril 10 mg tablet 10 mg PO DAILY #90 tab 10/27/20 [Rx Last Taken Unknown] Allergy/AdvReac Type Severity Reaction Status Date / Time Sulfa (Sulfonamide Allergy Hives Verified 02/14/21 21:04 Antibiotics) hydrocodone bitartrate AdvReac Nausea Verified 02/14/21 21:04 [From Vicodin] Family History Mother CAD (coronary artery disease) Surgical History H/O coronary artery bypass surgery History of carpal tunnel release History of cataract surgery Hx of cholecystectomy Social History Smoking Status: Former smoker ROS ROS ED ROS Narrative Denies recent illness. Review of Systems ROS Unobtainable: Denies due to encephalopathy Constitutional Constitutional ED: Denies chills or frequent falls Eyes Eyes: Denies change in vision ENT ENT ED: Denies ear pain or sore throat Cardiovascular Cardiovascular: Denies chest pain Respiratory/Chest Respiratory/Chest: Denies cough or dyspnea Gastrointestinal Gastrointestinal: Denies abdominal pain, diarrhea, nausea or vomiting Genitourinary Genitourinary ED: Denies dysuria or hematuria Musculoskeletal Musculoskeletal: Denies myalgias Integumentary Denies rash Neurologic Neurologic: Denies headache(s) Psychiatric Psychiatric: Denies depression Endocrine Endocrinology: Denies polyuria Hematologic/Lymphatic Hematologic/Lymphatic: Denies easy bruising Allergic/Immunologic Allergic/Immunologic ED: Denies urticaria EXAM Physical Exam Narrative Exam Narrative: 65-year-old female no acute distress. H EENT exam atraumatic nontender. C-spine nontender. Trachea midline. Lungs clear to auscultation. Heart regular rate and rhythm rate about 75. Chest wall nontender. Abdomen soft nontender. Back nontender. Spine nontender. Moving all 4 extremities. Neurovascular intact. No deformity. Mild tenderness mid left forearm. No deformity. Able to flex and extend at both shoulders, elbows and wrist normal radiographic technologist strength bilaterally. Both hips are nontender. No shortening or rotation. Flexion extension of both hips knees ankles and feet. Neurologically she is awake alert with no focal motor deficits. Const Vital Signs: 02/14/21 21:02 Temperature 97.4 F L Temperature Source Temporal Pulse Rate 75 Respiratory Rate 16 Blood Pressure 132/63 H Blood Pressure Mean 86 Pulse Ox 97 Oxygen Delivery Method Room Air Positive well nourished and well developed; Negative for obese, cachectic, contractures or unkempt General Appearance ED: well developed and NAD; Negative for unkempt, cachectic or contractures Nutritional Appearance: Negative for cachectic or obese HEENT Reports moist mucous membranes normocephalic and atraumatic; Negative for trauma or tenderness Eyes PERRL and EOMs intact bilaterally Neck full ROM and supple General: Negative for tenderness Chest Wall inspection of chest normal and palpation of chest normal Resp normal respiratory effort and clear to auscultation bilaterally Cardio regular rate, regular rhythm, S1 normal heart sound, S2 normal heart sound and no murmurs GI non-tender, non-distended and no masses Auscultation: normoactive bowel sounds Palpation: soft; Negative for tender, guarding or rebound tenderness present Back/Spine no CVA tenderness General Back: Negative for CVA tenderness Cervical Spine: Negative for cervical spine tenderness Thoracic Spine / Upper Back: Negative for thoracic spinal tenderness Lumbar Spine / Lower Back: Negative for lumbar spinal tenderness Extremity normal to inspection and full ROM General Extremety ED: Negative for edema General Extremity: Negative for edema Neuro oriented x3, CN's II-XII intact bilaterally, moves all extremities, no focal motor deficits and no sensory deficits noted Sensorium / Orientation: alert, oriented to person, oriented to place and oriented to time; Negative for orientation impaired, lethargic or stuporous Motor Exam: strength 5/5 throughout Psych mental status grossly normal Appearance: Negative for unkempt Skin Lesions: no lesions Rashes: no rashes Trauma: no lacerations or abrasions; Negative for abrasion or laceration MDM MDM MDM Narrative Medical decision making narrative: 5-year-old female fall. Left hand contusion. X-ray was obtained arthritis of the wrist but no fracture of the forearm. I went over the films with the patient. Lab Data Labs: Left forearm x-ray 2 views interpreted by myself and radiologist shows no acute abnormality. Chronic arthritic changes of the wrist. No fracture of the forearm. Radiography Diagnostic Testing: Radiology Impression Forearm X-Ray 02/14/21 21:04 IMPRESSION: 1. No demonstrated acute process of the radius and ulna. 2. The lunate is partially collapsed and sclerotic likely due to sequela from avascular necrosis or prior trauma. Electronically Signed: José Miguel Guillermo MD at 22:23 EDT , Service support , Discharge Plan Triage Chief Complaint: Fall ED Provider: Triston Rodas Dx/Rx/DC Orders Clinical Impression: Fall, Contusion of forearm, left Instructions: Bruises (Contusions) Prescriptions: No Action duloxetine [Cymbalta] 60 mg capsule,delayed release(DR/EC) 60 mg PO DAILY RF: 0 insulin glargine 100 unit/mL solution 20 unit SC DAILY RF: 0 dulaglutide 0.75 MG/0.5 ML pen injector 1.5 mg SQ TH RF: 0 pioglitazone 15 MG tablet 15 mg PO DAILY RF: 0 aspirin 81 MG tablet 81 mg PO DAILY@0800 RF: 0 empagliflozin 25 MG tablet 25 mg PO DAILY RF: 0 metformin 500 mg tablet extended release 24 hr 500 mg PO .COMPLEX RF: 0 metoprolol tartrate 25 mg tablet 12.5 mg PO BID Qty: 90 RF: 3 rosuvastatin 40 mg tablet 40 mg PO DAILY Qty: 90 RF: 3 lisinopril 10 mg tablet 10 mg PO DAILY Qty: 90 RF: 3 Primary Care Provider: Jaqueline Vo Referrals: Jaqueline Vo MD [Primary Care Provider] - 1 Week if not improving Activity Restrictions/Additional Instructions: Ice and elevate your left wrist to decrease pain and swelling. Tylenol and Motrin for pain and swelling. Follow-up with your doctor if not improving. No signs of any broken bones on the x-ray tonight. Disposition Disposition: Home, Self Care
[2021-02-14 22:46] VITALS: BP 108/74; PULSE 72; RESP 16
== END 2021-02-14 22:54 | disposition home or self-care (01) ==
PROVIDERS: Emergency Provider Emergency Medicine; PCP Internal Medicine
DX: S50.12XA Contusion of left forearm, initial encounter (principal); W01.0XXA Fall on same level from slipping, tripping and stumbling without subsequent striking against object, initial encounter; Y93.9 Activity, unspecified; Y92.9 Unspecified place or not applicable; I10 Essential (primary) hypertension; E11.9 Type 2 diabetes mellitus without complications; E66.9 Obesity, unspecified; Z68.34 Body mass index [BMI] 34.0-34.9, adult; E78.5 Hyperlipidemia, unspecified; F32.9 Major depressive disorder, single episode, unspecified; I25.2 Old myocardial infarction; I25.10 Atherosclerotic heart disease of native coronary artery without angina pectoris; Z95.1 Presence of aortocoronary bypass graft; Z79.4 Long term (current) use of insulin; Z79.82 Long term (current) use of aspirin; Z79.899 Other long term (current) drug therapy; Z87.891 Personal history of nicotine dependence
CPT/HCPCS: 73090; 99282

== ENCOUNTER → 2023-10-22 | Outpatient (CLI) | payer MEDICARE, SELFPAY ==
--- NOTE | 2023-10-22 13:31 | STRESSREP_ITS ---
Stress Test Report Date: 10/22/2023 Procedure: Pharmacologic stress nuclear imaging study Indications: Coronary artery disease Consent: Per the patient Procedure: The patient underwent pharmacologic (Regadenoson 0.4mg ) evaluation with a peak heart rate of 81 beats per minute (52%predicted maximal heart rate) and a peak blood pressure of 148/70 mmHg. The baseline ECG demonstrated sinus rhythm with nonspecific ST changes. The peak pharmacologic ECG demonstrated no ischemic changes. There were no cardiac dysrhythmias pretest, during pharmacologic infusion, or recovery. There was no complaint of chest discomfort during pharmacologic infusion or recovery. The patient was injected with 13.0 millicuries of technetium 99m Cardiolite and subsequently rest SPECT Cardiolite nuclear imaging was obtained in the horizontal long, vertical long, and short axis views. The patient underwent pharmacologic (Regadenoson) evaluation. The patient was injected with 40.0 millicuries of technetium 99m Cardiolite and subsequently stress SPECT Cardiolite nuclear imaging was obtained in the horizontal long, vertical long, and short axis views. A gated Cardiolite study at peak stress was obtained. The examination was stopped secondary to completion of protocol. Rest and stress SPECT Cardiolite nuclear imaging status post realignment, normalization, and attenuation correction demonstrate small to moderate size reversible perfusion defect of the inferior wall of mild intensity that may suggest mild ischemia. There is end systolic thickening and brightening. The gated Cardiolite study demonstrates myocardial thickening and inward wall motion. The reported LVEF is 51%. Impression: 1. Pharmacologic (Regadenoson) evaluation 2. Peak pharmacologic ECG with no diagnostic ischemic changes. 3. There were no cardiac dysrhythmias pretest, during pharmacologic infusion, or recovery. 5. Small to moderate size reversible perfusion defect of the inferior wall of mild intensity. Suggestive of mild ischemia of the inferior wall. 6. The gated Cardiolite study reports an LVEF of 51%. This note was generated with [employer] software. It may contain incorrect words, spelling, and punctuation that were not noted in checking the note before signing.
== END | disposition home or self-care (01) ==
PROVIDERS: PCP Internal Medicine; Referring Provider Nurse Practitioner Family; Visit Provider Nurse Practitioner Family
DX: E78.00 Pure hypercholesterolemia, unspecified (principal); E11.9 Type 2 diabetes mellitus without complications; I10 Essential (primary) hypertension; Z95.1 Presence of aortocoronary bypass graft; I25.10 Atherosclerotic heart disease of native coronary artery without angina pectoris
CPT/HCPCS: 78452; 93017; A9500; A4216; J2785

== ENCOUNTER 2023-11-13 08:28 | Day surgery (SDC) | payer MEDICARE, SELFPAY ==
--- NOTE | 2023-10-29 10:48 | HP.PCM_ITS ---
History and Physical Date of Admission: 11/13/23 This is a 68-year-old white female who presents today for left heart catheterization on account of abnormal stress test. She has a history of CAD status post CABG (2014: BRUNO to the LAD, SVG to the diagonal branch, SVG to the LCx, and SVG to the RCA), superimposed upon hyperlipidemia and hypertension. She denies chest, jaw, or neck discomfort. She states right arm pain. She did not note this prior to CABG. She denies palpitations. She denies bilateral lower extremity edema. She denies claudication. She denies shortness of breath with activity, shortness of breath at rest, orthopnea, or PND. She denies chronic cough. She denies significant, sudden weight gain. She denies lig htheadedness, dizziness, near-syncope, or syncope. She denies blood in urine, blood in stool, or epistaxis. He denies fever with chills. She denies myalgia. She denies fatigue. Her exercise level has remained stable. 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 Accompanied by: None Is patient in pain?: No Allergies Sulfa (Sulfonamide Antibiotics) Allergy (Verified 09/24/23 10:30) Hives hydrocodone bitartrate [From Vicodin] Adverse Reaction (Verified 09/24/23 10:30) Nausea Medications See EMR [facility] Medical History Atherosclerosis of coronary artery of [place] heart without angina pectoris Depression Essential hypertension Hyperlipidemia Obesity Old myocardial infarction Pure hypercholesterolemia Surgical History H/O coronary artery bypass surgery (~05/04/14) History of carpal tunnel release History of cataract surgery Hx of cholecystectomy Family History Mother CAD (coronary artery disease) Social History Smoking Status: Former smoker how long ago did patient quit smokin alcohol intake: never substance use type: does not use caffeine: Yes Type: coffee Number of servings: 1 ROS Const Const: Negative for fatigue, weakness, headache(s), frequent falls, difficulty sleeping or excessive sweating Eyes Eyes: Negative for loss of peripheral vision, transient loss of vision, blurry vision, double vision or tunnel vision ENT ENT: Negative for headache(s), dizziness, Nosebleed/epistaxis or balance problems Cardio Chest Pain: No Palpitations: No Edema: Bilateral (Related to grafts for heart surgery) Muscle aches with walking: None Resp Respiratory: Negative for SOB with activity, SOB at rest, SOB orthopnea\SOB lying down, Cough or paroxysmal nocturnal dyspnea GI GI: Negative nausea, vomiting, heartburn or black,tarry stools : Negative for hematuria Musc Musc: Positive for muscle aches/ myalgia (Pain to right arm unrelated to heart issues.); Negative for muscle weakness, joint pain or balance problems Skin Skin: Negative non-healing lesions, rash or unusual bruising Neuro Neuro: Positive for lightheadedness (Occasionally when standing up too quickly); Negative for dizziness, near syncope, syncope, frequent falls, headache(s), weakness, blurry vision, double vision or lack of coordination Loco Hematologic/Lymphatic: Negative for easy bleeding or easy bruising Endo Endo: Negative for fatigue, excessive sweating or increased thirst/drinking Psych Psych: Negative for anxiety or depression Allergy Allergy/Immunology: Negative for hives and Negative for rash Cardiology Exam Const Appearance: cooperative, healthy appearing, comfortable and no acute distress Nutritional Appearance: well nourished and obese Orientation: alert, awake and oriented x3 Head Head: normal to inspection Ears: hearing grossly normal bilaterally Nose: external nose normal Face and Sinus: face symmetric Mouth: moist mucous membranes Eyes General: appearance normal, both eyes and all related structures Eyelids: eyelids normal EOM: EOM intact bilaterally Neck Neck: normal visual inspection and no JVD Carotids: normal carotid upstroke Chest Chest inspection: normal inspection of the chest, symmetric chest movement and normal respiratory effort; Negative cough Auscultation: Bilateral: Clear to Auscultation Cardio Rate: regular rate Rhythm: regular rhythm Heart sounds: S1 normal and S2 normal; Negative rub, gallop or murmur GI GI: normal to inspection and obese Neuro General: patient alert, patient awake, patient oriented x3 and CN's II-XI intact bilaterally Skin Skin: no rashes or lesions noted Extremities Pulses: Normal: Right Posterior Tibial Pulse, Left Posterior Tibial Pulse, Right Radial Pulse and Left Radial Pulse Lower Extremity Edema: None: Bilateral Psych Psychological: normal affect Supplemental Info Supplemental Information Stress test on 10/22/2023: Impression: 1. Pharmacologic (Regadenoson) evaluation 2. Peak pharmacologic ECG with no diagnostic ischemic changes. 3. There were no cardiac dysrhythmias pretest, during pharmacologic infusion, or recovery. 5. Small to moderate size reversible perfusion defect of the inferior wall of mild intensity. Suggestive of mild ischemia of the inferior wall. 6. The gated Cardiolite study reports an LVEF of 51%. Assessment and Plan Assessment and Plan (1) H/O coronary artery bypass surgery: Status: Chronic Comment: CABG X 4 05/04/14, SVG-RCA, SVG-CX SVG-D1, BRUNO LAD Plan: Due to her history of bypass surgery and similar symptoms with right sided chest discomfort and multiple risk factors, she underwent a stress test on 10/22/2023. This showed a small to moderate size reversible perfusion defect of the inferior wall of mild intensity suggesting mild ischemia of the inferior wall. She will proceed with heart cath station to assess further. Depending on results, further recommendation be made. (2) Pure hypercholesterolemia: Status: Chronic Plan: Lipid panel in August 2021 showed total cholesterol: 145, triglycerides: 224, HDL: 33, and LDL: 67. She he will continue Crestor 40 mg p.o. daily. This has been recently checked with PCP. She was reminded of the importance of LDL goal of 70 and below for secondary prevention, but given history of diabetes closer to 50?55. (3) Essential hypertension: Status: Chronic Plan: To assist with lower blood pressure readings and lightheadedness, her lisinopril was recently reduced to 5 mg p.o. daily.
--- NOTE | 2023-10-30 10:47 | RAD_ITS ---
STUDY: X-RAY CHEST REASON FOR EXAM: Female, 68 years old. Preoperative evaluation for heart catheterization. TECHNIQUE: Frontal and lateral views of the chest. COMPARISON: October 24, 2018 FINDINGS: The lungs are clear and expanded. There is no demonstrated pleural abnormality. Stable borderline cardiomegaly with sternotomy wires and changes of coronary artery bypass grafting. Normal mediastinum and efren. Normal visualized pulmonary arteries. Normal visualized aortic arch and descending thoracic aorta. Normal visualized thoracic spine. Normal visualized ribs, clavicles, and shoulders. No abnormality of the visualized soft tissue structures of the upper abdomen. RAD/Chest PA and Lateral IMPRESSION: Stable chest with no acute or active cardiopulmonary disease. Electronically Signed: Macario Blancas MD at 12:45 EDT ,
[2023-10-30 11:36] LABS: Hematocrit 36.9 % (37-47); Hemoglobin 10.9 g/dL (12.0-15.0); Mean Corp Hgb Conc 29.5 g/dL (32-36); Mean Corpuscular Hgb 22.5 pg (27.0-32.0); Mean Corpuscular Volume 76.1 fL (81-99); Mean Platelet Vol. 11.6 fl (6.2-12.0); Platelet Count 234 K/mm3 (150-450); RBC Distribution Width CV 16.7 % (11.6-14.6); RBC Distribution Width SD 45.4 fl (35.1-43.9); Red Blood Count 4.85 M/mm3 (4.2-5.4); White Blood Count 8.9 K/mm3 (4.4-11.0)
[2023-10-30 11:52] LABS: International Normalized Ratio 1.2; Prothrombin Time (Protime)PT. 14.8 SECONDS (11.7-14.9)
[2023-10-30 11:53] LABS: Partial Thromboplast Time 30.8 Seconds (24.1-36.2)
[2023-10-30 12:03] LABS: Anion Gap 11 (5-15); BUN 12 mg/dL (7-18); BUN/Creat Ratio 17.6 RATIO (10-20); Calcium,Total 8.7 mg/dL (8.5-10.1); Chloride 104 mmol/L (98-107); Creatinine, Serum 0.68 mg/dL (0.55-1.02); EST Glomerular Filtration Rate 92 mL/min (>60); Est Glom Filt Rate - Afr Amer 111 mL/min (>60); Glucose 259 mg/dL (74-106); Sodium Level 138 mmol/L (136-145)
[2023-11-12 08:16] VITALS: BMI 34.2
[2023-11-13 10:44] LABS: ACT Activated Clotting Time 250 sec (74-137)
[2023-11-13 10:44] LABS: ACT Activated Clotting Time 324 sec (74-137)
--- NOTE | 2023-11-13 10:55 | CL.D_ITS ---
Patient Name: LONDON CURRY Study Date: 11/13/2023 Performing: Danae Melendrez MD Ht: 62 inches 157.48 cm : 1955 Wt: 187 lbs 84.82 kg Age: 68 Gender: female BSA: 1.86 PROCEDURE(S) PERFORMED DC04-(41415)LHC/COR/CABG DC11-([id number])AO ROOT ANGIO WITH HEART CATH IC10-(04547)FFR, CORONARY OR GRAFT, INITIAL VESSEL CLINICAL PROFILE AND INDICATIONS Heart Failure: None Stress/Imaging Stress Test w/SPECT MPI: Yes Result: Positive Intermediate RiskStress Test with SPECT MPI: Positive Intermediate Risk Angina Classification Anginal Classification w/in 2 Weeks: No symptoms CAD Presentations: No Sxs, no angina. CONCLUSIONS 100% Mid LAD; BRUNO graft to LAD 50% mid at a bend, iFR 0.95 NO SVG to RCA, D1 identified on aortogram, likely 100% DISCHARGE SPECIALIST Mid RCA, SVG to RCA likely totally occluded, RPDA filling retrogradely via collaterals 95% Prox D1, small vessel RECOMMENDATIONS Medical treatment Coronary CT angio to confirm total occlusion of SVG to RCA/D1 DESCRIPTION OF PROCEDURE The patient arrived to the procedure lab. The risks and benefits of the procedure as well as a full description of our services here and current unavailability of surgical backup were fully explained to the patient and/or their significant other prior to the catheterization. The Timeout was completed, verifying the correct patient and procedure. The patient's procedural site was prepped and draped in the usual fashion. Local anesthetic was given subcutaneously to left radial region with Lidocaine 2%. Using a modified Seldinger technique, arterial access was obtained via the left radial artery, a 6Fr sheath was inserted. Left internal mammary artery graft to the LAD selective angiography was performed in multiple views using a 5 Fr. IM catheter. Saphenous Vein graft to the Circumflex selective angiography was performed in multiple views using a 5 Fr. 4.0 [place] catheter. Left Coronary Artery selective angiography was performed in multiple views using a 5 Fr. JL4 catheter. Right Coronary Artery selective angiography was then performed in multiple views using a 5 Fr. 3DRC (Amadeo) catheter. Ascending (root) aorta selective angiography was then performed in single view using an angled pigtail catheter. Ascending (root) aorta selective angiography was then performed in single view using an angled pigtail catheter.The arterial sheath was pulled and a TR Band was applied for hemostasis CORONARY ANGIOGRAPHY DOMINANCE: Right Dominant LEFT MAIN: Diffuse 50% Ostial lesion in LMCA LEFT ANTERIOR DESCENDING ARTERY: LAD: Diffuse 100% Mid lesion in LAD Calcified 80% Proximal lesion in LAD DIAGONAL 1: Calcified 95% Ostial lesion in DIAG1 RIGHT CORONARY ARTERY: RCA: Calcified 90% Proximal lesion in RCA Calcified 100% Mid lesion in RCA GRAFTS: BRUNO Graft to LAD SVG Graft to MARG1 Luminal Irregularities 40% lesion in SVG Graft to MARG1 SVG Graft to RT PDA Tubular 100% lesion in SVG Graft to RT PDA SVG Graft to DIAG1 Complex 100% lesion in SVG Graft to DIAG1 COLLATERAL FLOW: Collateral flow from SEP to RT PDA Collateral flow from CX to RT LV-BR COMPLICATIONS No Complications PROCEDURE MEDICATIONS Versed 1 mg IV Fentanyl 50 mcg IV Oxygen: 2 L/min via nasal cannula Heparin given IA 11/13/2023 09:35:59 Heparin 2000 unit(s) IV 11/13/2023 09:56:55 Heparin 2000 unit(s) IV 11/13/2023 10:01:45 Heparin 4000 unit(s) IV 11/13/2023 10:22:54 Verapamil 2.5mg, Ntg 200mcgs, 2000 units of Heparin given IA 11/13/2023 09:35:59 SUMMARY OF HEMODYNAMIC DATA Time AIR REST ECG 09:21:36 AO 125/56 (82) SA 09:44:10 10:52:41 AIR REST ECG 10:52:41 Signed By Danae Melendrez MD On 11/13/2023 10:54:50 Danae Melendrez MD
== END 2023-11-13 13:15 | disposition home or self-care (01) ==
PROVIDERS: Nurse Practitioner Family; PCP Internal Medicine; Referring Provider Internal Medicine Cardiovascular Disease; Visit Provider Internal Medicine Cardiovascular Disease
DX: I25.10 Atherosclerotic heart disease of native coronary artery without angina pectoris (principal); E11.9 Type 2 diabetes mellitus without complications; Z87.891 Personal history of nicotine dependence; E78.00 Pure hypercholesterolemia, unspecified; I10 Essential (primary) hypertension; Z95.1 Presence of aortocoronary bypass graft; I25.2 Old myocardial infarction; R94.39 Abnormal result of other cardiovascular function study; R07.89 Other chest pain
CPT/HCPCS: 36415; 71046; 80048; 85027; 85347; 85610; 85730; 93455; 93567; 93571; 99152; 99153; J7040; Q9967; C1769; C1887; C1894

== ENCOUNTER → 2023-12-20 | Outpatient (CLI) | payer MEDICARE, SELFPAY ==
--- NOTE | 2023-12-20 13:15 | CT_ITS ---
STUDY: CT CHEST CONTRAST REASON FOR EXAM: Female, 68 years old. OVER READ ONLY confirm total occlusion of SVG to RCA/ D1 RADIATION DOSAGE (If Supplied By Facility): CTDIvol = ( 28 ) mGy, DLP = ( 1141.28 ) mGycm TECHNIQUE: Transaxial imaging was performed following intravenous administration of [id number]. Individualized dose optimization techniques were used for this CT. COMPARISON: No relevant priors. FINDINGS: CHEST The lungs are normal. There is no demonstrated pleural abnormality. Sternal cerclage wires and vascular clips are present from a prior sternotomy and coronary artery bypass graft procedure (CABG). There are calcifications of the coronary arteries. There are small lymph nodes within the mediastinum, which are normal in size and morphology most compatible with reactive lymph hyperplasia. Normal hilar regions. Normal unenhanced pulmonary arteries. Atherosclerotic calcification of the aortic arch as well as at the origin of the left common carotid artery and left subclavian artery. There are degenerative changes of the thoracic spine. There is no demonstrated abnormality of the visualized upper abdomen. CT/Limited Chest CT Cardiac Only IMPRESSION: Prior CABG. Coronary artery calcification. Electronically Signed: Bo Sadler MD at 14:55 EDT ,
[2023-12-20 13:30] VITALS: BP 109/58; PULSE 72; RESP 18; TEMP 36.6; O2SAT 96; BMI 35.6
[2023-12-20] MEDS: 0.9% Saline Lock 10 ML Syringe IV (13:30)
[2023-12-20 13:53] VITALS: BP 86/43; PULSE 78
[2023-12-20] MEDS: Nitroglycerin SL (ED/IMG/CATH) 0.4 MG TABLET SL (13:53)
[2023-12-20 13:58] LABS: CREATININE FINGERSTICK < 1.0 mg/dL (0.55-1.02); EGFR FINGERSTICK > 60.0000 mL/min (>60)
[2023-12-20 14:01] VITALS: BP 96/43; PULSE 76; RESP 18
--- NOTE | 2023-12-26 09:19 | CCTA.WCONT ---
CCTA w/Cont Coronary Arteries Date of Study:: 12/20/23 Confirmed total occlusion of the saphenous vein graft to the right co Coronary Calcium Scoring: High-resolution Computed Tomographic imaging of the chest was performed on [12/20/2023], with particular attention paid to the coronary arteries. Intravenous contrast agent was administered per protocol and images reconstructed and displayed. LEFT MAIN CORONARY ARTERY: Arises from the left coronary cusp and is noted to have no significant stenosis bifurcates the left anterior descending artery and the circumflex artery [] LEFT ANTERIOR DESCENDING CORONARY ARTERY: Extensive calcification noted in the proximal and mid left anterior descending artery with near total occlusion [] LEFT CIRCUMFLEX CORONARY ARTERY: Extensive calcification noted involving the first obtuse marginal branch and mid left circumflex artery with a first obtuse marginal branch be noted to be patent [] RIGHT CORONARY ARTERY: Dominant vessel with significant calcification noted variant. There is a bypass graft which is noted running towards the direction of the left anterior descending artery. Left internal mammary artery graft is visualized partially. No other bypass grafts are noted Extensive calcification of the tulalip vessel noted. The origins of 2 bypass grafts notably the left internal mammary artery and a saphenous vein graft are noted.
== END | disposition home or self-care (01) ==
LOC: CT 13:13
PROVIDERS: PCP Internal Medicine; Referring Provider Nurse Practitioner Family; Visit Provider Nurse Practitioner Family
DX: I25.10 Atherosclerotic heart disease of native coronary artery without angina pectoris (principal); E11.9 Type 2 diabetes mellitus without complications; I25.2 Old myocardial infarction; Z95.1 Presence of aortocoronary bypass graft
CPT/HCPCS: 75574; 76380; Q9967; A4216

== ENCOUNTER → 2024-02-27 | Outpatient (CLI) | payer MEDICARE, SELFPAY ==
--- NOTE | 2024-02-27 10:55 | RAD_ITS ---
STUDY: X-RAY - LEFT ANKLE REASON FOR EXAM: Female, 68 years old. Pain following a fall. TECHNIQUE: 3 view(s) of the ankle. COMPARISON: None. FINDINGS: Normal visualized distal tibia and fibula. Normal medial and lateral malleoli. Normal tibiotalar articulation and ankle mortise. Small plantar spur. The visualized subtalar, talonavicular, calcaneocuboid and tarsal articulations are normal. Vascular clips are seen along the medial aspect of the lower leg suggestive of prior venous surgery. RAD/Ankle min 3 Views IMPRESSION: Normal x-ray examination of the ankle. Electronically Signed: Bo Sadler MD at 11:55 EDT ,
--- NOTE | 2024-02-27 10:55 | RAD_ITS ---
STUDY: X-RAY - PELVIS AND LEFT HIP REASON FOR EXAM: Female, 68 years old. Pain following a recent fall. TECHNIQUE: views of the pelvis and hip. COMPARISON: None. FINDINGS: There is a non-specific bowel gas pattern. Normal visualized soft tissue structures. Normal bilateral iliac wings, sacroiliac joints and visualized sacrum. Normal bilateral superior and inferior pubic rami. Normal pubic symphysis. Normal bilateral ischial tuberosities. Normal visualized femoral head. There is osteoarthritic spur formation of the acetabular rim. There is mild articular joint space narrowing of the hip. RAD/HIP, UNI W/ Pelvis 2-3 Views IMPRESSION: Degenerative changes. No fracture seen. Electronically Signed: Bo Sadler MD at 12:04 EDT ,
--- NOTE | 2024-02-27 10:55 | RAD_ITS ---
STUDY: X-RAY - LUMBAR SPINE REASON FOR EXAM: Female, 68 years old. Fall TECHNIQUE: 2 view(s) of the lumbar spine were obtained. COMPARISON: None FINDINGS: There is an exaggerated lumbar lordosis. There is no substantial scoliosis. There is a normal alignment of the vertebrae. Normal vertebral bodies and endplates. Moderate degree of disc space narrowing at the L2-L3 level with anterior spondylosis. There is atherosclerotic calcification of the abdominal aorta without a demonstrated aneurysm. Calcified bilateral injection granulomas in the gluteus. RAD/Lumbar Spine 2 or 3 Views IMPRESSION: Degenerative changes of the spine, as detailed above. Electronically Signed: Bo Sadler MD at 11:56 EDT ,
--- NOTE | 2024-02-27 11:00 | RAD_ITS ---
STUDY: X-RAY - LEFT KNEE REASON FOR EXAM: Female, 68 years old. Fall TECHNIQUE: 3 view(s) of the knee. COMPARISON: None. FINDINGS: Normal visualized distal femur. Normal visualized proximal tibia and fibula. Normal proximal tibiofibular articulation. Normal medial femorotibial compartment. Normal lateral femorotibial compartment. Normal patellofemoral articulation. Small joint effusion. Vascular calcification. RAD/Knee 3 Views IMPRESSION: Small joint effusion. No fracture is seen. Electronically Signed: Bo Sadler MD at 12:04 EDT ,
--- NOTE | 2024-02-27 11:25 | RAD_ITS ---
STUDY: X-RAY - LEFT FOOT CLINICAL: Female, 68 years old. Pain and swelling following a recent fall. TECHNIQUE: 3 view(s) of the foot. COMPARISON: None. FINDINGS: There is a plantar calcaneal spur. Normal visualized subtalar, talonavicular, calcaneocuboid, tarsal and tarsometatarsal articulations. Normal metatarsi. Normal metatarsophalangeal joint of the great toe. Normal tibial and fibular sesamoid bones. Normal interphalangeal joint of the great toe. Normal phalanges of the great toe. Normal second through fifth metatarsophalangeal joints. Nondisplaced transverse fracture at the base of the proximal phalanx of the fifth toe. Soft tissue swelling. RAD/Foot min 3 Views IMPRESSION: Nondisplaced transverse fracture at the base of the proximal phalanx of the fifth toe with overlying Electronically Signed: Bo Sadler MD at 12:06 EDT ,
== END | disposition home or self-care (01) ==
PROVIDERS: PCP Internal Medicine; Referring Provider Physician Assistant; Visit Provider Physician Assistant
DX: M25.562 Pain in left knee (principal); M79.672 Pain in left foot; M54.50 Low back pain, unspecified; M25.572 Pain in left ankle and joints of left foot; M25.552 Pain in left hip; W19.XXXA Unspecified fall, initial encounter
CPT/HCPCS: 72100; 73502; 73562; 73610; 73630

== ENCOUNTER 2024-09-19 09:54 | Inpatient (IN) | payer MEDICARE, SELFPAY ==
[2024-09-19] VITALS (21 sets, daily range): BP systolic 96–138; BP diastolic 51–84; PULSE 79–111; RESP 16–27; TEMP 35.8–36.9; O2SAT 92–100; BMI 34.9; BMI 34.7
--- NOTE | 2024-09-19 10:00 | ED.RN ---
this rn calls respiritory for an EKG when pt was escorted back to a room d/t pt deing sob, diaphoretic, and tachycardic.
--- NOTE | 2024-09-19 10:10 | EKG12_ITS ---
Test Reason : SOB Blood Pressure : */* mmHG Vent. Rate : 101 BPM Atrial Rate : 101 BPM P-R Int : 188 ms QRS Dur : 104 ms QT Int : 360 ms P-R-T Axes : 37 -23 143 degrees QTcB Int : 466 ms Sinus tachycardia Minimal voltage criteria for LVH, may be normal variant ( Sunny product ) Anterior infarct , age undetermined Marked ST abnormality, possible lateral subendocardial injury Abnormal ECG Confirmed by Gordon Mc ([id number]), design editor ALECIA AGUSTIN ([id number]) on 09/22/2024 6:51:26 AM Referred By: Ramses Hansen Confirmed By: Gordon Mc
--- NOTE | 2024-09-19 10:26 | EX.ED.DYSGE1 ---
HPI History of Present Illness Chief Complaint: Shortness of Breath Narrative Narrative: Patient is a 69-year-old with past medical history of CAD status post CABG, hypertension, hyperlipidemia who presented to the emergency department the chief complaint of shortness of breath. Patient states that for the past 3 days she has had progressively worsening shortness of breath prompting her to come here for the valuation management. Patient states that if she moves any short distance she becomes very winded and has to take a break. Patient states that for the last 3 days she has had tightness in her chest but denies any specific pain and does not radiate anywhere. Patient denies any recent history of travel denies history of blood clots. [facility] Medical History Sprain of left foot Left ankle sprain Strain of left knee Strain of left hip Lumbar contusion Acute lumbar myofascial strain Abnormal stress test Pure hypercholesterolemia Essential hypertension Depression Atherosclerosis of coronary artery of crow heart without angina pectoris Obesity Old myocardial infarction Hyperlipidemia Home Medications ?Medication ?Instructions ?Recorded ?Last Taken ?Type aspirin 81 mg tablet,delayed 81 mg PO DAILY@0800 [facility] 10/24/18 11/13/23 History release empagliflozin 25 mg tablet 25 mg PO DAILY 10/24/18 10/24/18 History pioglitazone 15 mg tablet 15 mg PO DAILY dm 10/24/18 10/24/18 History duloxetine 60 mg capsule,delayed 60 mg PO DAILY 08/01/19 11/13/23 History release (Cymbalta) insulin glargine 100 unit/mL 30 unit subcut QHS 10/26/21 11/13/23 History subcutaneous solution metformin 500 mg tablet,extended 1,000 mg PO BID dm 10/26/21 11/12/23 History release 24 hr metoprolol tartrate 25 mg tablet 12.5 mg (1/2 x 25 mg) PO BID heart 11/15/23 Unknown Rx #90 tabs cyclobenzaprine 10 mg tablet 10 mg PO Q8H PRN muscle spasm #20 02/27/24 Unknown Rx tabs rosuvastatin 40 mg tablet 40 mg PO DAILY cholesterol #90 tabs 05/23/24 Unknown Rx Allergy/AdvReac Type Severity Reaction Status Date / Time Sulfa (Sulfonamide Allergy Hives Verified 04/09/24 11:35 Antibiotics) hydrocodone bitartrate (From AdvReac Nausea Verified 04/09/24 11:35 Vicodin) Family History Mother CAD (coronary artery disease) Surgical History History of cataract surgery History of carpal tunnel release Hx of cholecystectomy H/O coronary artery bypass surgery (~05/04/14) Social History Smoking Status: Former smoker how long ago did patient quit smokin alcohol intake: never substance use type: does not use caffeine: Yes Type: coffee Number of servings: 1 ROS ROS ED ROS Narrative Constitutional: Denies fevers, chills, headaches malaise, dizziness Eyes: Denies change in vision double vision blurry vision Cardiovascular: States that she has chest tightness denies any specific pain and denies palpitations Respiratory: Quit shortness of breath as noted above denies cough Abdomen: Denies nausea vomit diarrhea : Denies urinary symptoms Neurological: Denies numbness, weakness, tingling Musculoskeletal: Denies back pain Skin: Denies rashes or lesions EXAM Physical Exam Narrative Exam Narrative: General: Patient lying in bed rest comfortably did not appear to be in acute distress Head: Atraumatic, normocephalic Eyes: PERRL bilaterally, EOMI bilateral, no conjunctival injection noted Neck: Soft, supple, trachea midline Cardiovascular: Patient tachycardic with a regular rhythm Respiratory: Clear to auscultation bilaterally Extremities: +5/5 strength noted in the bilateral upper and lower extremities Neurological: Patient follow commands and that she was at [facility] there is Skin: Warm, dry, intact no rashes or lesions noted Const Vital Signs: 09/19/24 09:55 09/19/24 10:37 09/19/24 10:39 Temperature 97.6 F L Temperature Source Temporal Pulse Rate 111 H Respiratory Rate 22 H Respiratory Effort Labored Respiratory Depth Normal Respiratory Pattern Tachypnea Blood Pressure 110/52 L Blood Pressure Mean 71 Pulse Ox 100 98 Oxygen Delivery Method Room Air Nasal Cannula Nasal Cannula Oxygen Flow Rate (L/min) 2 2 MDM MDM MDM Narrative Medical decision making narrative: Patient is a 69-year-old female who presented to the emergency department chief complaint of shortness of breath that has been progressively worsening with exertion. On the differential diagnosis includes but only to pneumonia, pneumothorax, ACS, upper respiratory infection secondary to viral etiology. Once workup is obtained review she will be reevaluated. Patient's previous records from cardiology were reviewed and patient had a CABG in 2013 BRUNO to LAD, SVG to diagonal branch, SVG to left circumflex and SVG to RCA. Show stress test on 10/22/2023 that was abnormal she proceeded with heart catheterization on 11/2023 that resulted in medical therapy. To assess the SVG to RCA occlusion she underwent coronary angiography CT scan on 12/1719 which confirmed occlusion. Recommendation was medical treatment. Patient's EKG was obtained and reviewed at 10:04 AM patient did have significant depressions noted in lead I, aVL and her lateral leads V5 V6. There was some elevation noted in V1 as well as of aVR. I called and discussed the case with friction paint machine tender Dr. Hansen who states that he will review the EKGs. This was compared to a previous EKG as well from October 25, 2018 and is significantly abnormal. He is in agreement that this is worrisome and STEMI alert was paged. Patient was given 325 mg of aspirin as well as heparin, Brilinta ordered. Nursing staff was concerned that there were changes noted on the monitor therefore repeat EKG was done and reviewed which once again showed the changes as noted earlier and STEMI alert will still continue. The remainder of the patient's blood work is pending at this point time. Critical care time 37 minutes Discharge Plan Triage Chief Complaint: Shortness of Breath ED Provider: Vineet Dawkins Dx/Rx/DC Orders Prescriptions: No Action duloxetine [Cymbalta] 60 mg capsule,delayed release(DR/EC) 60 mg PO DAILY cyclobenzaprine 10 mg tablet 10 mg PO Q8H PRN (Reason: muscle spasm) Qty: 20 0RF insulin glargine 100 unit/mL solution 30 unit SC QHS Patient Comments: LONG ACTING INSULIN pioglitazone 15 MG tablet 15 mg PO DAILY aspirin 81 MG tablet 81 mg PO DAILY@0800 empagliflozin 25 MG tablet 25 mg PO DAILY Patient Comments: take 1 tablet by mouth every morning metformin 500 mg tablet extended release 24 hr 1,000 mg PO BID metoprolol tartrate 25 mg tablet 12.5 mg PO BID Qty: 90 3RF rosuvastatin 40 mg tablet 40 mg PO DAILY Qty: 90 3RF Primary Care Provider: Jaqueline Vo Print Language: Romanian
[2024-09-19] MEDS: Aspirin 325 MG Tablet PO (10:31)
[2024-09-19] MEDS: Heparin Injection (Vial) 5,000 UNIT/ML VIAL 4000 UNIT IV (10:43)
[2024-09-19] MEDS: Clopidogrel Bisulfate 300 MG Tablet 600 MG PO (10:43)
[2024-09-19] MEDS: 0.9% Normal Saline (1000mL) 1,000 ML 999 ML IV (10:44)
[2024-09-19] MEDS: TICAGRELOR 90 MG TABLET 180 MG PO (10:44)
[2024-09-19 10:48] LABS: Absolute Lymphocyte Count 0.94 X10^3/uL (0.83-4.51); Basophil# 0.11 X10^3/uL; Basophil% 0.6 % (0-1); Eosinophil# 0.04 X10^3/uL; Eosinophils% 0.2 % (0-5); Hematocrit 32.6 % (37-47); Hemoglobin 9.5 g/dL (12.0-15.0); Lymphocyte # 0.94 X10^3/ul (0.83-4.51); Lymphocyte % 5.4 % (19-41); Mean Corp Hgb Conc 29.1 g/dL (32-36); Mean Corpuscular Hgb 19.2 pg (27.0-32.0); Mean Corpuscular Volume 65.7 fL (81-99); Mean Platelet Vol. 10.9 fl (6.2-12.0); Monocyte# 1.21 X10^3/uL; NRBC Flagged by Analyzer 0.1 % (0-5); Neutrophil # 14.98 X10^3/uL (2.7-7.7); Neutrophil % 86.2 % (47-70); POSITIVE MORPHOLOGY YES; Platelet Count 346 K/mm3 (150-450); RBC Distribution Width CV 20.2 % (11.6-14.6); RBC Distribution Width SD 44.7 fl (35.1-43.9); Red Blood Count 4.96 M/mm3 (4.2-5.4); White Blood Count 17.4 K/mm3 (4.4-11.0)
[2024-09-19 10:49] LABS: Differential Indicated SCAN CRITERIA MET
[2024-09-19 11:07] LABS: Anisocytosis 1+
--- NOTE | 2024-09-19 11:11 | ED.RN ---
Patients daughter Luis notified patient is having a heart attack. She is stable and will be moved to the [facility]. RN stated please be careful driving, when you arrive you will not be able to see her but we will show you to the waiting room. No further questions
[2024-09-19 11:12] LABS: ALB/GLOB Ratio 1.4 RATIO (0.9-2.4); AST(SGOT) 52 U/L (<=31); Alanine Aminotransfer ALT/SGPT 18 U/L (<=34); Albumin, Serum 3.9 g/dL (3.4-4.8); Alkaline Phosphatase 66 U/L (35-104); Anion Gap 20 (5-15); BUN 12 mg/dL (4-19); BUN/Creat Ratio 15.6 RATIO (10-20); Carbon Dioxide 17.2 mmol/L (21.0-32.0); Chloride 100 mmol/L (98-108); Creatinine, Serum 0.76 mg/dL (0.70-1.20); EST Glomerular Filtration Rate 85 (>60); Estimated Creatinine Clearance 67.02 ml/min (50-250); Globulin 2.9 g/dL (2.2-4.2); Glucose 197 mg/dL (70-99); International Normalized Ratio 1.2; Protein, Total 6.8 g/dL (5.9-8.4); Prothrombin Time (Protime)PT. 15.8 SECONDS (11.7-14.9); Sodium Level 137 mmol/L (133-145); Total Bilirubin 0.95 mg/dL (0.00-1.30)
[2024-09-19 11:13] LABS: Partial Thromboplast Time 32.5 Seconds (24.1-36.2)
[2024-09-19 11:14] LABS: Pro- Brain NATRIURETIC PEPTIDE 12961 pg/mL (<=900); Troponin T High Sensitivity 506 ng/L (<=14)
--- NOTE | 2024-09-19 11:17 | CHAPLAIN ---
Type of Pastoral Visit ___ Initial Visit ___ Follow-up Visit ___ On-call Visit ___ General Patient Visit ___ Spiritual Assessment ___ Family Conference ___ Bereavement _x__ Rapid Response ___ Code Blue ___ Other (describe below) Pastoral Care Referral From ___ Patient ___ Family ___ Nurse ___ Physician ___ Annual Giving Officer ___ Patient Office Rep _x__ Other (describe below) Sacrament/Intervention ___ Active listening ___ Anointing ___ Restoration ___ Bereavement ___ Communion ___ Loan exploration ___ ___ Life review ___ Prayer ___ Reconciliation ___ Sacrament of Sick _x__ Supportive presence ___ Wedding ___ Other (describe below) Pastoral Comments responded to this stemi alert in the ED; patient was being prepped for heart cath; pt did not have family present; asked pt about any family coming and she responded that yes they would be showing up sometime but unknown when; notified triage nurse and security that family would be arriving at some point
[2024-09-19 11:54] LABS: Lactic Acid 3.3 mmol/L (0.0-2.0)
--- NOTE | 2024-09-19 12:05 | PCIREPORT_ITS ---
<Statement entered by Ramses Hansen MD - 09/19/24 12:48> Pt seen & evaluated w/KATHLEEN. I personally interviewed & exam the pt. I was involved in all aspects of pt's orders, interpretation of results & treatment I saw this patient in the ER I was consulted by the ER physician to evaluate as patient has a symptoms of shortness of breath diaphoretic Patient has history of diabetes She had a history of myocardial infarction in 2013 where she underwent triple bypass with BRUNO to LAD, SVG to RCA as well as SVG to OM 2. Underwent cardiac catheterization here at [facility] by her primary gaming department head Dr. Melendrez. Findings revealed severe [place] coronary artery disease with progression of atherosclerosis with the occluded SVG graft to the RCA with the RCA itself with a MANAGER PARTY. Patent SVG to OM 2 and patent BRUNO to LAD which is a very tortuous BRUNO with nonobstructive atherosclerosis As she presented with symptoms of shortness of breath for the last 3 days with c hange in the EKG and elevated cardiac biomarkers she was taken as emergency to the cardiac catheterization lab Identified the culprit lesion at the SVG graft subtotal to the OM 2 Underwent successful PCI and stenting using drug-eluting stent. Achieve an excellent result and she was stable patient will be admitted to the intensive care unit over the night will evaluate further by echocardiogram will continue on dual antiplatelet therapy Once stable to follow-up as an outpatient with her primary gaming department head in addition to scheduled for cardiac rehab program here at [facility]. PCI Cardiac Cath Report PCI Report: PCI cardiac cath report; Selective left coronary angiogram. 2. Selective SVG graft to OM 2 3. Successful PCI of the culprit which is subtotal proximal SVG graft to the OM 2 with predilatation using 2 x 20 balloon followed by placement of drug-eluting stent 3.5 x 26 mm resolute Helix frontier. Initial angiography revealed COLETTE II flow following the successful PCI with achieved COLETTE-3 flow in the SVG graft to OM 2. With reduction of stenosis from subtotal 99% to 0% Suture applied to right common femoral artery with the plan of manual pressure to maintain hemostasis. Preprocedure presentation. 69-year-old patient with history of diabetes, with severe [place] CAD and occluded SVG graft to RCA. Prior [place] in 2013 where she underwent bypass surgery at [facility] With BRUNO to LAD, SVG to OM 2, SVG to RCA. She was seen over here at [facility] where she underwent cardiac catheterization last year by her primary gaming department head Dr. Melendrez. I reviewed the cardiac catheterization from previous, revealed severe [place] coronary artery disease with a patent BRUNO to LAD tortuous BRUNO with nonobstructive atherosclerosis. and occluded SVG graft to the RCA and MANAGER PARTY RCA. Diffuse disease involving the OM and the proximal circumflex artery with patency of the graft. SVG graft to OM 2. Based on the clinical presentation patient had symptoms of ongoing shortness of breath for the last 3 days and she was diaphoretic. No symptoms of chest pain reported And she has significant change in the EKG in addition to elevated cardiac biomarkers. She was given heparin aspirin in addition to Brilinta in the ER I discussed the finding of EKG and her clinical presentation with the ER physician and I recommended to proceed as emergency to the [facility]. She does not have any active chest pain she is diabetic and there were significant change in the EKG with ST elevation noted in the aVR with diffuse ST depression I saw her in the ER and they brought her right away to the [facility] where access were obtained from the right common femoral artery and will proceed with diagnostic catheterization identified the culprit lesion and will proceed with PCI and successfully stented the SVG graft to the OM 2. Medication used in the [facility] 1. Heparin with ACT level acceptable above 2-45 She was given Brilinta in the ER and she was previously on Plavix as well. Interventional equipment and catheters; 1. 6 Japanese sheath placed in the right common femoral artery under fluoroscopic guidance 2. We used a 6 Japanese JL 4 guide catheter. Guide liner 6 Japanese guide liner. 4. 0.014 extra floppy run-through 180 cm guide wire. 5. 2 x 20 mm balloon. 6. 3.5 x 26 mm drug-eluting stent/resolute Kg. Coronary angiography findings; 1 left main coronary artery bifurcates into LAD and left circumflex. Left anterior descending artery moderate in size does not reach all the way to the apex in the midportion of the LAD there is a 90% stenosis. Large septal branch was noted. Collaterals were noted from the left anterior descending artery to the RCA. Left circumflex had OM branch proximal high OM1 branch small patent Diffuse atherosclerosis involving the proximal to mid segment of the left circumflex artery with 90% prior to the bifurcation of the OM 2. Previous angiogram was reviewed RCA with MANAGER PARTY of the midportion from previous with collateralization from the left side SVG graft to the RCA was occluded, from previous review of the angiogram in 2023 BRUNO to LAD was patent which was very tortuous BRUNO with nonobstructive atherosclerosis. SVG graft to the OM 2 is the culprit in this case with 99% stenosis with thrombus. We proceed with predilatation followed by placement of drug-eluting stent, and achievement of COLETTE-3 flow in the SVG graft to the OM 2. Conclusion recommendation. Very complex with diffuse coronary atherosclerosis involving the LAD as well as the bypass graft in this 69-year-old diabetic patient. Recommendation would be the following #1 to continue on dual antiplatelet therapy with Brilinta and aspirin 2. High-dose statin atorvastatin 80 mg 3. Will evaluate by echocardiogram to assess LV function. 4. Will start on a low-dose beta-randal carvedilol possible NARGIS inhibitor as well based on her LV function. Patient will be admitted to the intensive care unit. Suture applied to right common femoral artery arteriotomy site with the plan of maintaining manual pressure to maintain hemostasis when the ACT level is less than 150. Patient tolerated procedure very well in the [facility] by the time she left the [facility] she was very stable hemodynamically she was not having any active symptoms of chest pain. She was feeling nauseated and she was given Zofran in the [facility]. No complication in the [facility]; Ramses Hansen MD,[facility] performance solutions specialist
--- NOTE | 2024-09-19 12:16 | PCM.CONS.C ---
Assessment & Plan Assessment/Plan (1) ACS (acute coronary syndrome): (2) H/O coronary artery bypass surgery: (3) Type 2 diabetes mellitus: (4) Essential hypertension: (5) Pure hypercholesterolemia: HPI Consult Data Date of Consult: 09/19/24 HPI Narrative HPI Narrative: LONDON CURRY, is a 69 F who presented to [facility] ER today for SOB. Patient states that for the past 3 days she has had progressively worsening shortness of breath prompting her to come here for the valuation management. Patient states that if she moves any short distance she becomes very winded and has to take a break. Patient states that for the last 3 days she has had tightness in her chest but denies any specific pain and does not radiate anywhere. There was concern with her EKG for a STEMI, however after her urgent heart cath it was felt to be an ACS. Heart cath demonstrated left main coronary artery bifurcates into LAD and left circumflex. Left anterior descending artery moderate in size does not reach all the way to the apex in the midportion of the LAD there is a 90% stenosis. Large septal branch was noted. Collaterals were noted from the left anterior descending artery to the RCA. Left circumflex had OM branch proximal high OM1 branch small patent Diffuse atherosclerosis involving the proximal to mid segment of the left circumflex artery with 90% prior to the bifurcation of the OM 2. Previous angiogram was reviewed RCA with CREW PERSON of the midportion from previous with collateralization from the left side SVG graft to the RCA was occluded, from previous review of the angiogram in 2023 BRUNO to LAD was patent which was very tortuous BRUNO with nonobstructive atherosclerosis. SVG graft to the OM 2 is the culprit in this case with 99% stenosis with thrombus.She underwent stenting of this vessel. She has a history of CAD status post CABG (2013: BRUNO to the LAD, SVG to the diagonal branch, SVG to the LCx, and SVG to the RCA), superimposed upon hyperlipidemia and hypertension. She had a stress test on 10/22/2023 that was abnormal. She proceeded with a heart catheterization on 11/13/2023 that resulted in medical therapy. To assess SVG to RCA/D1 occlusion, she underwent a coronary angiography CT scan on 12/26/2023, which confirmed occlusion. [facility] Medical History Sprain of left foot Left ankle sprain Strain of left knee Strain of left hip Lumbar contusion Acute lumbar myofascial strain Abnormal stress test Pure hypercholesterolemia Essential hypertension Depression Atherosclerosis of coronary artery of [place] heart without angina pectoris Obesity Old myocardial infarction Hyperlipidemia Home Medications ?Medication ?Instructions ?Recorded ?Last Taken ?Type aspirin 81 mg tablet,delayed 81 mg PO DAILY@0800 heart health 10/24/18 11/13/23 History release empagliflozin 25 mg tablet 25 mg PO DAILY 10/24/18 10/24/18 History pioglitazone 15 mg tablet 15 mg PO DAILY dm 10/24/18 10/24/18 History duloxetine 60 mg capsule,delayed 60 mg PO DAILY 08/01/19 11/13/23 History release (Cymbalta) insulin glargine 100 unit/mL 30 unit subcut QHS 10/26/21 11/13/23 History subcutaneous solution metformin 500 mg tablet,extended 1,000 mg PO BID dm 10/26/21 11/12/23 History release 24 hr metoprolol tartrate 25 mg tablet 12.5 mg (1/2 x 25 mg) PO BID heart 11/15/23 Unknown Rx #90 tabs cyclobenzaprine 10 mg tablet 10 mg PO Q8H PRN muscle spasm #20 02/27/24 Unknown Rx tabs rosuvastatin 40 mg tablet 40 mg PO DAILY cholesterol #90 tabs 05/23/24 Unknown Rx Allergy/AdvReac Type Severity Reaction Status Date / Time Sulfa (Sulfonamide Allergy Hives Verified 04/09/24 11:35 Antibiotics) hydrocodone bitartrate (From AdvReac Nausea Verified 04/09/24 11:35 Vicodin) Family History Mother CAD (coronary artery disease) Surgical History History of cataract surgery History of carpal tunnel release Hx of cholecystectomy H/O coronary artery bypass surgery (~05/04/14) Social History Smoking Status: Former smoker how long ago did patient quit smokin alcohol intake: never substance use type: does not use caffeine: Yes Type: coffee Number of servings: 1 ROS Constitutional Constitutional: Denies change in weight, chills, frequent falls, headache(s) or lethargy Eyes Eyes: Denies acute decrease in peripheral vision, blurry vision or change in vision ENT HEENT: Denies dizziness, dry mouth, epistaxis, headache(s), tinnitus or vertigo Cardiovascular Cardiovascular: Reports as per HPI Respiratory/Chest Respiratory/Chest: Denies cough or wheezing Gastrointestinal Gastrointestinal: Denies abdominal pain, bloating, coffee ground emesis, diarrhea, heartburn, hematemesis, hematochezia, melena or nausea Genitourinary Genitourinary: Denies hematuria Musculoskeletal Musculoskeletal: Denies myalgias, numbness or tingling Neurologic Neurologic: Denies abnormal gait, abnormal speech, memory loss, paresthesias or weakness Physical Exam Const alert, oriented x3, no apparent distress and healthy appearing HEENT normocephalic, head/scalp atraumatic, hearing grossly normal bilaterally, external ears normal, external nose normal and moist oral mucous membranes Eyes PERRL, EOMs intact bilaterally, conjunctivae normal and no scleral icterus Neck no lymphadenopathy, supple and no JVD Cardio regular rate, regular rhythm, S1 normal heart sound, S2 normal heart sound, no murmurs, no rub, no gallops, no clicks, no JVD and peripheral pulses 2+ throughout GI normal to inspection, nondistended, normoactive bowel sounds, soft to palpation, non-tender and non-distended Extremity normal to inspection, normal capillary refill, no clubbing, cyanosis or edema and no pedal edema Neuro oriented x3, CN's II-XII intact bilaterally, moves all extremities and no focal motor deficits Psych cooperative and affect normal Risk Stratification Risk Stratification Applicable: Yes Age >/= 65: Yes >/= 3 CAD Risk Factors (HTN, HLD, DM, family hx of CAD, or current smoker): Yes Aspirin Use in the Past 7 Days: Yes Severe Angina (>/= episodes in 24 hours): Yes EKG ST Changes >/= 0.5mm: Yes Positive Cardiac Marker: Yes COLETTE Risk Stratification Score: 6 COLETTE % Risk: 41% Risk Objective Data Vital Signs: Vital Signs Temp Pulse Resp BP Pulse Ox O2 Del Method O2 Flow Rate 97.6 F L 93 23 H 105/67 97 Nasal Cannula 3 09/19/24 09:55 09/19/24 11:04 09/19/24 11:04 09/19/24 11:04 09/19/24 11:04 09/19/24 11:04 09/19/24 11:04 Oxygen Flow Rate (L/min) 3 Oxygen Delivery Method Nasal Cannula Weight: 189 lb 9.561 oz Body Mass Index (BMI) 34.9 Lab / Micro Data 09/19/24 10:35 09/19/24 10:35 Labs: Laboratory Results - last 24 hr 09/19/24 10:35: WBC 17.4 H, RBC 4.96, Hgb 9.5 L, Hct 32.6 L, MCV 65.7 L, MCH 19.2 L, MCHC 29.1 L, RDW Std Deviation 44.7 H, RDW Coeff of Celsa 20.2 H, Plt Count 346, MPV 10.9, Immature Gran % (Auto) 0.600, Neut % (Auto) 86.2 H, Lymph % (Auto) 5.4 L, [place] % (Auto) 7.0, Eos % (Auto) 0.2, Baso % (Auto) 0.6, Absolute Neuts (auto) 15.0 H, Absolute Lymphs (auto) 0.94, Nucleated RBC % 0.1, Anisocytosis 1+, PT 15.8 H, INR 1.2, APTT 32.5, Sodium 137, Potassium 4.0, Chloride 100, Carbon Dioxide 17.2 L, Anion Gap 20 H, BUN 12, Creatinine 0.76, Estim Creat Clear Calc 67.02, Est GFR (MDRD) Non-Af 85, BUN/Creatinine Ratio 15.6, Glucose 197 H, Lactic Acid 3.3 H*, Calcium 9.0, Total Bilirubin 0.95, AST 52 H, ALT 18, Alkaline Phosphatase 66, Troponin T High Sens 506 H*, [place] [address] H, Total Protein 6.8, Albumin 3.9, Globulin 2.9, Albumin/Globulin Ratio 1.4 Micro: Microbiology 09/19/24 10:18 Mucosa - Nose SARS-CoV-2, Influenza & RSV (PCR) - Final Cardiology Labs/Tests 09/19/24 10:35: WBC 17.4 H, RBC 4.96, Hgb 9.5 L, Hct 32.6 L, MCV 65.7 L, MCH 19.2 L, MCHC 29.1 L, Plt Count 346, MPV 10.9, Immature Gran % (Auto) 0.600, Neut % (Auto) 86.2 H, Lymph % (Auto) 5.4 L, [place] % (Auto) 7.0, Eos % (Auto) 0.2, Baso % (Auto) 0.6, Absolute Neuts (auto) 15.0 H, Nucleated RBC % 0.1, PT 15.8 H, INR 1.2, APTT 32.5, Sodium 137, Potassium 4.0, Chloride 100, Carbon Dioxide 17.2 L, Anion Gap 20 H, BUN 12, Creatinine 0.76, Est GFR (MDRD) Non-Af 85, BUN/Creatinine Ratio 15.6, Glucose 197 H, Lactic Acid 3.3 H*, Calcium 9.0, Total Bilirubin 0.95
--- NOTE | 2024-09-19 12:16 | PCM.HP.STD ---
HPI - General General Date of Admission: 09/19/24 HPI Narrative LONDON CURRY, is a 69 F who presents [facility] Medical History Sprain of left foot Left ankle sprain Strain of left knee Strain of left hip Lumbar contusion Acute lumbar myofascial strain Abnormal stress test Pure hypercholesterolemia Essential hypertension Depression Atherosclerosis of coronary artery of [place] heart without angina pectoris Obesity Old myocardial infarction Hyperlipidemia Home Medications ?Medication ?Instructions ?Recorded ?Last Taken ?Type aspirin 81 mg tablet,delayed 81 mg PO DAILY@0800 heart health 10/24/18 09/19/24 History release empagliflozin 25 mg tablet 25 mg PO DAILY diabetes 10/24/18 09/19/24 History pioglitazone 15 mg tablet 15 mg PO DAILY dm 10/24/18 09/19/24 History duloxetine 60 mg capsule,delayed 60 mg PO DAILY depress 08/01/19 09/19/24 History release (Cymbalta) insulin glargine 100 unit/mL 30 unit subcut QHS diabetes 10/26/21 09/18/24 History subcutaneous solution metformin 500 mg tablet,extended 1,000 mg PO BID dm 10/26/21 09/19/24 History release 24 hr metoprolol tartrate 25 mg tablet 12.5 mg (1/2 x 25 mg) PO BID heart 11/15/23 09/19/24 Rx #90 tabs rosuvastatin 40 mg tablet 40 mg PO DAILY cholesterol #90 tabs 05/23/24 09/18/24 Rx dulaglutide 3 mg/0.5 mL 3 mg subcut .weekly diabet 09/19/24 Unknown History subcutaneous pen injector (Trulicity) Allergy/AdvReac Type Severity Reaction Status Date / Time Sulfa (Sulfonamide Allergy Hives Verified 04/09/24 11:35 Antibiotics) hydrocodone bitartrate (From AdvReac Nausea Verified 04/09/24 11:35 Vicodin) Family History Mother CAD (coronary artery disease) Surgical History History of cataract surgery History of carpal tunnel release Hx of cholecystectomy H/O coronary artery bypass surgery (~05/04/14) Social History Smoking Status: Former smoker how long ago did patient quit smokin alcohol intake: never substance use type: does not use caffeine: Yes Type: coffee Number of servings: 1 Vital Signs Vital Signs Vital Signs: 09/19/24 09:55 09/19/24 10:37 09/19/24 10:39 Temperature 97.6 F L Temperature Source Temporal Pulse Rate 111 H Respiratory Rate 22 H Respiratory Effort Labored Respiratory Depth Normal Respiratory Pattern Tachypnea Blood Pressure 110/52 L Blood Pressure Mean 71 Pulse Ox 100 98 Oxygen Delivery Method Room Air Nasal Cannula Nasal Cannula Oxygen Flow Rate (L/min) 2 2 09/19/24 11:04 09/19/24 11:04 Temperature Temperature Source Pulse Rate 93 Respiratory Rate 23 H 23 H Respiratory Effort Respiratory Depth Respiratory Pattern Blood Pressure 105/67 105/67 Blood Pressure Mean 79 Pulse Ox 97 Oxygen Delivery Method Nasal Cannula Oxygen Flow Rate (L/min) 3 Weight Weight: 86 kg Body Mass Index (BMI) 34.9 Results Lab / Micro Data 09/19/24 10:35 09/19/24 10:35 Labs: Laboratory Results - last 24 hr 09/19/24 10:35: WBC 17.4 H, RBC 4.96, Hgb 9.5 L, Hct 32.6 L, MCV 65.7 L, MCH 19.2 L, MCHC 29.1 L, RDW Std Deviation 44.7 H, RDW Coeff of Celsa 20.2 H, Plt Count 346, MPV 10.9, Immature Gran % (Auto) 0.600, Neut % (Auto) 86.2 H, Lymph % (Auto) 5.4 L, [place] % (Auto) 7.0, Eos % (Auto) 0.2, Baso % (Auto) 0.6, Absolute Neuts (auto) 15.0 H, Absolute Lymphs (auto) 0.94, Nucleated RBC % 0.1, Anisocytosis 1+, PT 15.8 H, INR 1.2, APTT 32.5, Sodium 137, Potassium 4.0, Chloride 100, Carbon Dioxide 17.2 L, Anion Gap 20 H, BUN 12, Creatinine 0.76, Estim Creat Clear Calc 67.02, Est GFR (MDRD) Non-Af 85, BUN/Creatinine Ratio 15.6, Glucose 197 H, Lactic Acid 3.3 H*, Calcium 9.0, Total Bilirubin 0.95, AST 52 H, ALT 18, Alkaline Phosphatase 66, Troponin T High Sens 506 H*, [place] [address] H, Total Protein 6.8, Albumin 3.9, Globulin 2.9, Albumin/Globulin Ratio 1.4 Micro: Microbiology 09/19/24 10:18 Mucosa - Nose SARS-CoV-2, Influenza & RSV (PCR) - Final Assessment & Plan Assessment/Plan (1) ACS (acute coronary syndrome): PLAN: Plan # ACS with total also occlusion of 1 vessel with previous CABG graft -Patient was a STEMI alert in the ED and was taken emergently to Pre Billing Specialist and found to have a subtotal occlusion of one of the CABG grafts that was subsequently stented - Heart healthy diet - Lipid panel in the a.m. - Echocardiogram - DAPT - High intensity statin # Elevated proBNP - Pro BNP of almost 13,000 - Patient did have shortness of breath for 3 days leading up to presentation - Will check chest x-ray - Echocardiogram ordered # History of coronary artery disease - With previous CABG - As above #Type 2 diabetes mellitus -Glucose checks and sliding scale insulin #DVT ppx: SCDs Conchis Scherer MD Time spent in the patient's overall evaluation, decision-making process, review of diagnostic data, adjustment of management, discussion with other providers, nursing and ancillary staff involved in patient's care documentation, [] Minutes
--- NOTE | 2024-09-19 12:19 | EKG12_ITS ---
Test Reason : STEMI Blood Pressure : */* mmHG Vent. Rate : 96 BPM Atrial Rate : 96 BPM P-R Int : 182 ms QRS Dur : 108 ms QT Int : 378 ms P-R-T Axes : 44 -9 141 degrees QTcB Int : 477 ms Normal sinus rhythm Minimal voltage criteria for LVH, may be normal variant ( [place] product ) Septal infarct , age undetermined Marked ST abnormality, possible lateral subendocardial injury Abnormal ECG Confirmed by Gordon Mc ([id number]), features editor ALECIA AGUSTIN ([id number]) on 09/22/2024 6:51:38 AM Referred By: Ramses Hansen Confirmed By: Gordon Mc
--- NOTE | 2024-09-19 12:22 | ECHOD_ITS ---
Reason For Study Reason For Study: STEMI Procedure This was a 2D Doppler, Color Flow transthoracic echocardiogram. Exam performed portable in ICU/CCU. Left Ventricle Mildly dilated left ventricle. The estimated ejection fraction is 30-35 %. Moderate global left ventricular systolic dysfunction. Right Ventricle Normal RV size. Normal systolic function. Atria The left atrium is mildly enlarged. Normal right atrium. Mitral Valve Mild diffuse mitral valve thickening. The mitral valve chordae are thickened and/or calcified. Moderate (2+) mitral valve insufficiency. Tricuspid Valve Normal tricuspid valve. Mild (1+) tricuspid valve insufficiency. Pulmonary artery systolic pressure is 61 mmHg. Aortic Valve Trisinus/trileaflet aortic valve. Mild focal aortic valve calcification. There is no aortic stenosis. Pulmonic Valve Normal pulmonic valve. Trivial pulmonic valve insufficiency. Great Vessels Normal sized aortic root. Pericardium/Pleural No pericardial effusion. MMode/2D Measurements & Calculations LVIDd: 5.6 cm IVSd: 0.93 cm Ao root diam: 3.0 cm LVIDs: 4.7 cm LVPWd: 1.0 cm RVDd: 3.7 cm FS: 15.8 % LAV(MOD-bp): 55.2 ml LVAd ap4: 29.7 cm2 LVAd ap2: 31.8 cm2 LAV(MOD-bp) Indexed: 29.9 ml/m2 LVLd ap4: 7.7 cm LVLd ap2: 7.6 cm LAV(MOD-sp2): 55.3 ml EDV(MOD-sp4): 95.3 ml EDV(MOD-sp2): 110.4 ml LAV(MOD-sp4): 53.0 ml EDV(sp4-el): 96.5 ml EDV(sp2-el): 112.6 ml LVAs ap4: 22.7 cm2 LVAs ap2: 24.7 cm2 LVLs ap4: 6.8 cm LVLs ap2: 6.9 cm ESV(MOD-sp4): 63.4 ml ESV(MOD-sp2): 73.4 ml ESV(sp4-el): 63.9 ml ESV(sp2-el): 75.0 ml EF(MOD-sp4): 33.5 % EF(MOD-sp2): 33.5 % EF(sp4-el): 33.8 % SV(MOD-sp4): 31.9 ml SV(MOD-sp2): 37.0 ml SV(sp4-el): 32.6 ml SI(MOD-sp4): 17.3 ml/m2 SI(MOD-sp2): 20.1 ml/m2 LA A4 area: 19.0 cm2 LA dimension(2D): 4.5 cm RA A4 area: 17.4 cm2 TAPSE: 1.4 cm Time Measurements MV dec time: 0.20 sec Doppler Measurements & Calculations MV E max sacha: 122.6 cm/sec Lat Peak E' Sacha: 8.9 cm/sec Med Peak E' Sacha: 6.7 cm/sec MV A max sacha: 101.5 cm/sec E/E' lat: 13.8 E/E' med: 18.2 MV E/A: 1.2 Ao V2 max: 134.5 cm/sec LV V1 max: 111.2 cm/sec PA V2 max: 80.9 cm/sec Ao max P.2 mmHg LV V1 max P.9 mmHg TR max sacha: 363.4 cm/sec TR max P.8 mmHg ECHO/Echo Complete Interpretation Summary Mildly dilated left ventricle. The left atrium is mildly enlarged. Mild diffuse mitral valve thickening. Moderate (2+) mitral valve insufficiency. Pulmonary artery systolic pressure is 61 mmHg. Mild focal aortic valve calcification. The estimated ejection fraction is 30-35 %. Ordering Physician: Conchis Scherer Referring Physician: VANESSA ALFARO Performed By: Vera Arriaga RDCS
--- NOTE | 2024-09-19 12:35 | CRPHASE1_ITS ---
Patient Communication Patient Information Former Patient:: Phase I PHII Cardiac Rehab Discussed with Patient:: Yes Guide to Cardiac Rehab Given to Patient:: Yes Cardiac Rehab Facility Choice List Given to Patient:: Yes Communication to Cardiac Rehab Choice Program [facility] CR PHII:: Communication Given to CR Shipfitter Helper:: Ramses Hansen Phase II Cardiac Rehab:: Yes Sessions:: 36 sessions - 3 days/wk, 12 weeks Cardiac Rehabilitation Info Program Information Cardiac Rehabilitation Program Information: Cardiac Rehab The cardiac rehab team at [facility] consists of highly skilled exercise physiologists, nurses, respiratory therapists and physicians working together with you. Our purpose is to help you have a full recovery and achieve the goals you set for yourself. Over the years many of our patients have returned to activities they assumed they would never do again! We can help restore your confidence and motivation to make lifestyle changes that can have a significant impact on your health and quality of life! We can help answer questions and concerns you may have about exercise, lifestyle, medications, diet, stress and anxiety which are common following a hospitalization. WE monitor ECG and vital signs during exercise and discuss your progress with you and report to your physician(s). Cardiac Rehab is proven to help reduce readmissions, improve functional capacity and lower recurrence of problems with your heart. Our Cardiac Rehab program is Certified by the [place] [employer]-Vascular and Pulmonary [employer] (AACVPR) and Accredited by the [place] [employer] through our [facility]. You can contact us at . We invite you to call us with your questions or to get started in our program. If you have other questions or concerns be sure to ask your physician/provider during your follow-up visit. WE look forward to seeing you!
--- NOTE | 2024-09-19 12:36 | CRPH1.INSTRU ---
General Education Discussed with Patient CAD and cardiac anatomy and function:: Patient communicates acknowledgment Explanation of diagnoses and procedures:: Patient communicates acknowledgment Sign/Symptoms of MT:: Patient communicates acknowledgment Antiplatelet therapy: Patient communicates acknowledgment Proper use of NTG-SL: Patient communicates acknowledgment Emergency procedures and activation of EMS: Patient communicates acknowledgment Compliance of all prescribed medications: Patient communicates acknowledgment Smoking Recommendations Recommendations Include:: Previous smoker; encourage continued cessation Response Code Nicotine/Smoking Response Code:: Patient communicates acknowledgment Dyslipidemia Recommendations Recommendations Include:: Lipid profile not available Response Code Dyslipidemia Response Code:: Patient communicates acknowledgment Overweight/Obesity Risk Factors Patient Overweight/Obesity Risk Factors Are:: Obesity - > or = 30 Recommendations Recommendations Include:: Weight loss of 5-10%, Reduced calorie diet and Exercise 5-7 times/week Response Code Overweight/Obesity:: Patient communicates acknowledgment Hypertension Recommendations Recommendations Include:: BP <130/80 if diabetic Response Code Hypertension:: Patient communicates acknowledgment Heart Disease Risk Factors Patient Heart Disease Risk Factors Are:: Family history of heart disease < 65 years old and Previous cardiac event Recommendations Recommendations Include:: Educated family members of their risk and Educated family members of importance of prevention of heart disease Response Code Heart Disease Response Code:: Patient communicates acknowledgment Diabetes Risk Factors Patient Diabetes Risk Factors Are:: Elevated blood sugars Recommendations Recommendations Include:: Maintain fasting blood sugars 70-110 md/dL, Maintain HgbA1c of 6% or less, Monitor blood sugar as prescribed, Diabetic dietary guidelines and Decrease/maintain body weight Response Code Diabetes:: Patient communicates acknowledgment Metabolic Syndrome Recommendations Recommendations Include:: Does not meet criteria Response Code Metabolic Syndrome Response Code:: Patient communicates acknowledgment Sedentary Risk Factors Patient Sedentary Risk Factors Are:: Lack of regular exercise Recommendations Recommendations Include:: Aerobic exercise 5-7 times/week for 20-30 minutes continuously, Benefits of regular exercise, Discussed home walking program and Monitored Outpatient Cardiac Rehab Response Code Sedentary Response Code:: Patient communicates acknowledgment Stress Recommendations Recommendations Include:: Identification of stressors, and assessment of coping skills and Stress management techniques Response Code Stress Response Code:: Patient communicates acknowledgment
[2024-09-19 14:16] LABS: ACT Activated Clotting Time 182 sec (74-137)
[2024-09-19 14:16] LABS: ACT Activated Clotting Time 245 sec (74-137)
[2024-09-19 14:42] LABS: Reflex Lactate? Y
[2024-09-19 15:31] LABS: Lactic Acid 1.9 mmol/L (0.0-2.0)
--- NOTE | 2024-09-19 15:57 | CASEMGMT ---
LANE DURAN Assessment Face to Face with patient for initial transition planning/care coordination assessment. LANE DURAN introduced self and role at [facility], pt voices understanding. Pt is A&Ox4 and is resting comfortably in bed and is calm. Care providers, pharmacy, and demographics verified. Admitting dx: STEMI LACE Strata: not populated PCP: Jaqueline Vo Specialists: SHEYLA Preferred Pharmacy: [facility] Insurance: [facility] Prescription Benefit: Yes LNOK: Luis Aggarwal (SHANNON) Living Arrangements: Pt lives with her daughter in a mobile home with 5 steps to enter ADLs/IADLs: Pt reports that she is independent Transportation: Self, daughter. Denies concerns DME: Functioning BGM with sufficient supplies. Access to a cane, FWW, W/C, Grab bars, and BP Machine. Pt is currently 98% on additional oxygen (2L). A verbal list of local in-network DME companies were provided to the pt at this time. Pt prefers [facility]. HHC/SNF: Denies hx or needs Pt?s goal: Home Plan: Home with pt daughter, anticipate no additional needs e/f potential new blood thinning Rx and possible oxygen. Pt denies the need for HHC or OP Tx. Pt states that she feels safe returning home with her daughter once she is medically ready and denies further questions or concerns at this time. María Barrios RN, CM
--- NOTE | 2024-09-19 16:49 | RAD_ITS ---
PROCEDURE: CHEST 1 VIEW (PORTABLE) 09/19/2024 REASON FOR EXAM: SOB, ELEVATED BNP, cardiac catheterization earlier today. TECHNIQUE: Frontal view of the chest. COMPARISON: None. FINDINGS: Hardware: EKG wires overlie the heart. Median sternotomy wires. Radiopaque densities overlying the spine. Heart: Heart size is mildly enlarged and pulmonary vascular congestion. Lungs: Low lung volumes. No focal consolidation, pleural effusion or pneumothorax. Bones: Degenerative changes are identified within the thoracic spine. RAD/Chest 1 View (Portable) IMPRESSION: Mild cardiomegaly and pulmonary vascular congestion. Reading Location: [id number]
--- NOTE | 2024-09-19 16:51 | HP.PCM.HOS_ITS ---
HPI - General General Date of Admission: 09/19/24 Date of Service: 09/19/24 Chief Complaint: SOB and chest pain HPI Narrative LONDON CURRY, is a 69 F with a history of coronary artery disease status post CABG, type 2 diabetes mellitus, hypertension who presented [facility] ED 09/19/2024 with increasing shortness of breath for 3 days especially on exertion with mild chest tightness ultimately prompting her to come to the ED. On arrival to the ED patient with heart rate of 111, blood pressure 110/52 with respiratory rate of 22, patient was 100% on room air. EKG revealed depressions in lead I, aVL and 5 and V6 with some elevation in V1 as well as aVR and a STEMI alert was called, patient was given aspirin and heparin as well as Brilinta and taken to the [facility] with Dr. Hansen where she underwent emergent cardiac catheterization and the culprit lesion was identified at the SVG graft with subtotal occlusion to the OM 2, patient underwent successful PCI with drug- eluting stent and transferred to the ICU. Hospitalist contacted to admit patient with cardiology consult. Patient evaluated close heart cath and intervention, reports that her breathing is significantly improved and she has no more chest tightness, denies any recent cough or fever, no leg swelling or weight gain but does note increased shortness of breath on exertion and chest tightness for 3 days, again which she reports are significantly improved. No other new or acute complaints [facility] Medical History Sprain of left foot Left ankle sprain Strain of left knee Strain of left hip Lumbar contusion Acute lumbar myofascial strain Abnormal stress test Pure hypercholesterolemia Essential hypertension Depression Atherosclerosis of coronary artery of [place] heart without angina pectoris Obesity Old myocardial infarction Hyperlipidemia Home Medications ?Medication ?Instructions ?Recorded ?Last Taken ?Type aspirin 81 mg tablet,delayed 81 mg PO DAILY@0800 heart health 10/24/18 09/19/24 History release empagliflozin 25 mg tablet 25 mg PO DAILY diabetes 09/19/24 History pioglitazone 15 mg tablet 15 mg PO DAILY dm 10/24/18 0 09/19/24 History duloxetine 60 mg capsule,delayed 60 mg PO DAILY depres s 08/01/19 09/19/24 History release (Cymbalta) insulin glargine 100 unit/mL 30 unit subcut QHS diabet es 10/26/21 09/18/24 History subcutaneous solution metformin 500 mg tablet,extended 1,000 mg PO BID dm 09/19/24 History release 24 hr metoprolol tartrate 25 mg tablet 12.5 mg (1/2 x 25 mg) PO BID heart 11/15/23 09/19/24 Rx #90 tabs rosuvastatin 40 mg tablet 40 mg PO DAILY cholesterol # 90 tabs 05/23/24 09/18/24 Rx dulaglutide 3 mg/0.5 mL 3 mg subcut .weekly diabet 0 09/19/24 Unknown History subcutaneous pen injector (Trulicity) Allergy/AdvReac Type Severity Reaction Status Date / Time Sulfa (Sulfonamide Allergy Hives Verified 04/09/24 11:35 Antibiotics) hydrocodone bitartrate (From AdvReac Nausea Verified 04/09/24 11:35 Vicodin) Family History Mother CAD (coronary artery disease) Surgical History History of cataract surgery History of carpal tunnel release Hx of cholecystectomy H/O coronary artery bypass surgery (~05/04/14) Social History Smoking Status: Former smoker how long ago did patient quit smokin alcohol intake: never substance use type: does not use caffeine: Yes Type: coffee Number of servings: 1 ROS ROS Narrative General: Denies fever/chills HENT: Has had some recent headaches, denies stuffy nose, denies sore throat EYES: Denies changes in vision Resp: Denies cough, shortness of breath and proved significantly Cardiac: Denies chest pain/tightness at this time GI: Denies abdominal pain, denies changes in bowel, denies nausea/vomiting : Denies changes in urination Extremity: Denies swelling MSK: Denies weakness Neuro: Denies any numbness/tingling Heme: Denies any bleeding or bruising Skin: Denies rashes Psychiatric: No complaints voiced Vital Signs Vital Signs Vital Signs: 09/19/24 09:55 09/19/24 10:37 09/19/24 10:39 Temperature 97.6 F L Temperature Source Temporal Pulse Rate 111 H Respiratory Rate 22 H Respiratory Effort Labored Respiratory Depth Normal Respiratory Pattern Tachypnea Blood Pressure 110/52 L Blood Pressure Mean 71 Blood Pressure Source Blood Pressure Position Blood Pressure Location Pulse Ox 100 98 Oxygen Delivery Method Room Air Nasal Cannula Nasal Cannula Oxygen Flow Rate (L/min) 2 2 09/19/24 11:04 09/19/24 11:04 09/19/24 12:15 Temperature 98.4 F Temperature Source Temporal Pulse Rate 93 86 Respiratory Rate 23 H 23 H 25 H Respiratory Effort Respiratory Depth Respiratory Pattern Blood Pressure 105/67 105/67 134/65 H Blood Pressure Mean 79 88 Blood Pressure Source Monitor Blood Pressure Position Semi-Fowlers Blood Pressure Location Left Arm Pulse Ox 97 92 Oxygen Delivery Method Nasal Cannula Room Air Oxygen Flow Rate (L/min) 3 09/19/24 12:30 09/19/24 12:45 09/19/24 13:00 Temperature Temperature Source Pulse Rate 82 80 82 Respiratory Rate 21 H 26 H 17 Respiratory Effort Respiratory Depth Respiratory Pattern Blood Pressure 127/78 H 122/76 H 122/71 H Blood Pressure Mean 94 91 88 Blood Pressure Source Monitor Monitor Monitor Blood Pressure Position Semi-Fowlers Semi-Fowlers Semi-Fowlers Blood Pressure Location Left Arm Left Arm Left Arm Pulse Ox 92 93 96 Oxygen Delivery Method Room Air Room Air Room Air Oxygen Flow Rate (L/min) 09/19/24 14:00 09/19/24 15:00 09/19/24 15:55 Temperature Temperature Source Pulse Rate 81 79 Respiratory Rate 27 H 26 H Respiratory Effort Respiratory Depth Respiratory Pattern Blood Pressure 117/83 H 128/73 H Blood Pressure Mean 94 91 Blood Pressure Source Monitor Monitor Blood Pressure Position Semi-Fowlers Semi-Fowlers Blood Pressure Location Left Arm Left Arm Pulse Ox 95 95 97 Oxygen Delivery Method Room Air Room Air Room Air Oxygen Flow Rate (L/min) 09/19/24 16:00 Temperature Temperature Source Pulse Rate 81 Respiratory Rate 16 Respiratory Effort Respiratory Depth Respiratory Pattern Blood Pressure 138/84 H Blood Pressure Mean 102 Blood Pressure Source Monitor Blood Pressure Position Semi-Fowlers Blood Pressure Location Right Arm Pulse Ox 94 Oxygen Delivery Method Room Air Oxygen Flow Rate (L/min) Weight Weight: 86 kg Body Mass Index (BMI) 34.7 Physical Exam Narrative General: Alert, oriented, no apparent distress HEENT: Atraumatic, normocephalic Eyes: Anicteric, normal conjunctiva, extraocular movements grossly intact Neck: Supple Respiratory: Slightly diminished at the bases, no overt respiratory distress Cardiovascular: Regular rate and rhythm GI: Soft, nontender, nondistended Extremities: No pitting edema Musculoskeletal: Moving all extremities Neuro: No overt focal neurological deficits Skin: No rashes appreciated Psych: Cooperative Results Lab / Micro Data 09/19/24 10:35 09/19/24 10:35 Labs: Laboratory Results - last 24 hr 09/19/24 10:16: Activated Clotting Time 182 H 09/19/24 10:35: WBC 17.4 H, RBC 4.96, Hgb 9.5 L, Hct 32.6 L, MCV 65.7 L, MCH 19.2 L, MCHC 29.1 L, RDW Std Deviation 44.7 H, RDW Coeff of Celsa 20.2 H, Plt Count 346, MPV 10.9, Immature Gran % (Auto) 0.600, Neut % (Auto) 86.2 H, Lymph % (Auto) 5.4 L, [place] % (Auto) 7.0, Eos % (Auto) 0.2, Baso % (Auto) 0.6, Absolute Neuts (auto) 15.0 H, Absolute Lymphs (auto) 0.94, Nucleated RBC % 0.1, Anisocytosis 1+, PT 15.8 H, INR 1.2, APTT 32.5, Sodium 137, Potassium 4.0, Chloride 100, Carbon Dioxide 17.2 L, Anion Gap 20 H, BUN 12, Creatinine 0.76, Estim Creat Clear Calc 67.02, Est GFR (MDRD) Non-Af 85, BUN/Creatinine Ratio 15.6, Glucose 197 H, Lactic Acid 3.3 H*, Calcium 9.0, Total Bilirubin 0.95, AST 52 H, ALT 18, Alkaline Phosphatase 66, Troponin T High Sens 506 H*, [place] [address] H, Total Protein 6.8, Albumin 3.9, Globulin 2.9, Albumin/Globulin Ratio 1.4 09/19/24 10:37: Activated Clotting Time 245 H 09/19/24 14:55: Lactic Acid 1.9 Micro: Microbiology 09/19/24 10:18 Mucosa - Nose SARS-CoV-2, Influenza & RSV (PCR) - Final Assessment & Plan Assessment/Plan (1) ACS (acute coronary syndrome): PLAN: Plan # ACS -Patient was a STEMI alert in the ED and was taken emergently to [facility] and found to have a subtotal occlusion of one of the CABG grafts that was subsequently stented -Patient had subtotal occlusion of SVG graft to the OM 2 and underwent successful PCI and stenting with drug-eluting stent - Heart healthy diet - Lipid panel in the a.m. - Echocardiogram - DAPT - High intensity statin - Cardiology following - Patient's home metoprolol continued # Elevated proBNP - Pro BNP of almost 13,000 - Patient did have shortness of breath for 3 days leading up to presentation, feels significantly better now however will check x-ray for further characterization -Patient presently respiratory stable so we will hold off on empiric Lasix unless other evidence of fluid overload - Echocardiogram ordered # History of coronary artery disease - With previous CABG - As above #Type 2 diabetes mellitus -Glucose checks and sliding scale insulin - Will continue long-acting but it lower dose to avoid hypoglycemia, can uptitrate as tolerated #Depression/anxiety -Continue home medications #DVT ppx: SCDs Conchis Scherer MD Charges/Coding Visit Charges Inpatient E&M: 05255 Init Hosp L2
--- NOTE | 2024-09-19 18:10 | NURSING ---
Bharat from senior label specialist here to pull sheath at this time.
[2024-09-19 18:17] LABS: Bedside Glucose 137 mg/dL (74-106)
[2024-09-19] MEDS: Ondansetron 4 MG/2 ML Vial IV (20:07)
[2024-09-19] MEDS: 0.9% Saline Lock 10 ML Syringe IV (20:08)
[2024-09-19] MEDS: Acetaminophen 325 MG Tablet 650 MG PO (20:09)
[2024-09-19] MEDS: 0.9% Normal Saline (1000mL) 1,000 ML 75 ML IV (21:04)
[2024-09-19] MEDS: Insulin Glargine-YFGN 100 UNIT/ML Pen 15 UNIT SC (21:04)
[2024-09-19] MEDS: Metoprolol Tartrate 25 MG Tablet 12.5 MG PO (21:08)
[2024-09-19] MEDS: Atorvastatin Calcium 80 MG Tablet PO (21:08)
[2024-09-19 21:27] LABS: Bedside Glucose 127 mg/dL (74-106)
[2024-09-20] VITALS (24 sets, daily range): BP systolic 84–132; BP diastolic 48–94; PULSE 68–83; RESP 13–30; TEMP 35.8–36.2; O2SAT 94–99; BMI 35.5
[2024-09-20 03:08] LABS: Absolute Neutrophil Count 12.7 X10^3/uL (2.0-7.7); Basophil# 0.09 X10^3/uL; Basophil% 0.6 % (0-1); Eosinophil# 0.05 X10^3/uL; Eosinophils% 0.3 % (0-5); Hematocrit 29.8 % (37-47); Lymphocyte % 8.4 % (19-41); Mean Corp Hgb Conc 30.2 g/dL (32-36); Mean Corpuscular Hgb 19.8 pg (27.0-32.0); Mean Corpuscular Volume 65.5 fL (81-99); Mean Platelet Vol. 10.4 fl (6.2-12.0); Monocyte# 1.21 X10^3/uL; Monocyte% 7.8 % (0-10); NRBC Flagged by Analyzer 0.2 % (0-5); Neutrophil # 12.74 X10^3/uL (2.7-7.7); Neutrophil % 82.5 % (47-70); Platelet Count 319 K/mm3 (150-450); RBC Distribution Width CV 19.9 % (11.6-14.6); RBC Distribution Width SD 44.5 fl (35.1-43.9); Red Blood Count 4.55 M/mm3 (4.2-5.4); White Blood Count 15.5 K/mm3 (4.4-11.0)
[2024-09-20 07:08] LABS: Anion Gap 14 (5-15); BUN 13 mg/dL (4-19); BUN/Creat Ratio 22.7 RATIO (10-20); Calcium,Total 8.2 mg/dL (7.6-11.0); Chloride 102 mmol/L (98-108); Cholesterol 89 mg/dL (<=200); Creatinine, Serum 0.58 mg/dL (0.70-1.20); EST Glomerular Filtration Rate 99 (>60); Estimated Creatinine Clearance 69.38 ml/min (50-250); Glucose 156 mg/dL (70-99); Hemoglobin A1c 6.3 % (<=5.6); High Density Lipoprotein 34 mg/dL; Low Density Lipoprotein Calc. 33 mg/dL; Potassium 3.7 mmol/L (3.3-5.1); Sodium Level 134 mmol/L (133-145); Triglycerides 110 mg/dL; Very Low Density Lipoprotein 22 mg/dL (5-40); cholesterol:hdl ratio screen 2.63
--- NOTE | 2024-09-20 07:18 | PCM.PN.HOSP ---
Reason for Visit Reason for Visit: Diagnoses Acute ischemic heart disease, unspecified (09/19/24) Subjective Subjective Patient sitting up, reports that she is feeling better breathing velarde with no chest pain, no new or acute complaints Objective Data Objective Data Vital Signs: Vital Signs Temp Pulse Resp BP Pulse Ox O2 Del Method O2 Flow Rate 96.4 F L 81 22 H 111/78 96 Room Air 3 09/20/24 00:00 09/20/24 04:00 09/20/24 04:00 09/20/24 04:00 09/20/24 04:00 09/20/24 04:00 09/19/24 11:04 FiO2 21 09/19/24 23:00 Oxygen Flow Rate (L/min) 3 Oxygen Delivery Method Room Air Weight: 88.1 kg Body Mass Index (BMI) 35.5 Intake & Output: Intake and Output for Last 24 Hours 09/18/24 09/19/24 09/20/24 23:59 23:59 23:59 Intake Total 1000 / 1000 675 / 675 Output Total 1350 / 1350 150 / 150 Balance -350 / -350 525 / 525 Lab / Micro Data 09/20/24 02:57 09/20/24 02:57 Labs: Laboratory Results - last 24 hr 09/19/24 10:16: Activated Clotting Time 182 H 09/19/24 10:35: WBC 17.4 H, RBC 4.96, Hgb 9.5 L, Hct 32.6 L, MCV 65.7 L, MCH 19.2 L, MCHC 29.1 L, RDW Std Deviation 44.7 H, RDW Coeff of Celsa 20.2 H, Plt Count 346, MPV 10.9, Immature Gran % (Auto) 0.600, Neut % (Auto) 86.2 H, Lymph % (Auto) 5.4 L, [place] % (Auto) 7.0, Eos % (Auto) 0.2, Baso % (Auto) 0.6, Absolute Neuts (auto) 15.0 H, Absolute Lymphs (auto) 0.94, Nucleated RBC % 0.1, Anisocytosis 1+, PT 15.8 H, INR 1.2, APTT 32.5, Sodium 137, Potassium 4.0, Chloride 100, Carbon Dioxide 17.2 L, Anion Gap 20 H, BUN 12, Creatinine 0.76, Estim Creat Clear Calc 67.02, Est GFR (MDRD) Non-Af 85, BUN/Creatinine Ratio 15.6, Glucose 197 H, Lactic Acid 3.3 H*, Calcium 9.0, Total Bilirubin 0.95, AST 52 H, ALT 18, Alkaline Phosphatase 66, Troponin T High Sens 506 H*, [place] [address] H, Total Protein 6.8, Albumin 3.9, Globulin 2.9, Albumin/Globulin Ratio 1.4 09/19/24 10:37: Activated Clotting Time 245 H 09/19/24 14:55: Lactic Acid 1.9 09/19/24 16:21: POC Glucose 137 H 09/19/24 21:01: POC Glucose 127 H 09/20/24 02:57: WBC 15.5 H, RBC 4.55, Hgb 9.0 L, Hct 29.8 L, MCV 65.5 L, MCH 19.8 L, MCHC 30.2 L, RDW Std Deviation 44.5 H, RDW Coeff of Celsa 19.9 H, Plt Count 319, MPV 10.4, Immature Gran % (Auto) 0.400, Neut % (Auto) 82.5 H, Lymph % (Auto) 8.4 L, [place] % (Auto) 7.8, Eos % (Auto) 0.3, Baso % (Auto) 0.6, Absolute Neuts (auto) 12.7 H, Absolute Lymphs (auto) 1.30, Nucleated RBC % 0.2, Sodium 134, Potassium 3.7, Chloride 102, Carbon Dioxide 18.0 L, Anion Gap 14, BUN 13, Creatinine 0.58 L, Estim Creat Clear Calc 69.38, Est GFR (MDRD) Non-Af 99, BUN/Creatinine Ratio 22.7 H, Glucose 156 H, Hemoglobin A1c 6.3 H, Calcium 8.2, Triglycerides 110, Cholesterol 89, LDL Cholesterol, Calc 33, VLDL Cholesterol 22, HDL Cholesterol 34 L, Cholesterol/HDL Ratio 2.63, TSH 2.900 Micro: Microbiology 09/19/24 10:18 Mucosa - Nose SARS-CoV-2, Influenza & RSV (PCR) - Final Radiography Diagnostic Testing: Radiology Impression Chest X-Ray 09/19/24 16:49 IMPRESSION: Mild cardiomegaly and pulmonary vascular congestion. Reading Location: [facility] Physical Exam Narrative General: Alert, oriented, no apparent distress HEENT: Atraumatic, normocephalic Eyes: Anicteric, normal conjunctiva, extraocular movements grossly intact Neck: Supple Respiratory: Slight increased respiratory effort with crackles in mid cash and a little bit diminished at the bases Cardiovascular: Regular rate and rhythm GI: Soft, nontender, nondistended Extremities: Possibly trace lower extremity edema Musculoskeletal: Moving all extremities Neuro: No overt focal neurological deficits Skin: No rashes appreciated Psych: Cooperative Assessment & Plan Assessment/Plan (1) ACS (acute coronary syndrome): PLAN: Plan # ACS -Patient was a STEMI alert in the ED and was taken emergently to [facility] and found to have a subtotal occlusion of one of the CABG grafts that was subsequently stented -Patient had subtotal occlusion of SVG graft to the OM 2 and underwent successful PCI and stenting with drug-eluting stent - Heart healthy diet - Lipid panel in the a.m. - Echocardiogram - DAPT - High intensity statin - Cardiology following - Patient's home metoprolol continued -09/20: Echo completion pending, continue aspirin, statin, Brilinta, cardiology following # Elevated proBNP - Pro BNP of almost 13,000 - Patient did have shortness of breath for 3 days leading up to presentation, feels significantly better now however will check x-ray for further characterization -Patient presently respiratory stable so we will hold off on empiric Lasix unless other evidence of fluid overload - Echocardiogram ordered -09/20: X-ray with cardiomegaly and pulmonary edema however patient symptoms improved and respiratory status stable, awaiting echocardiogram, patient started on IV fluids yesterday per cardiology post cath which is finished now, patient does have crackles and with clinical picture will give dose of IV Lasix as she seems to be fluid overloaded, continue to monitor weights and output #Type 2 diabetes mellitus -Glucose checks and sliding scale insulin - Will continue long-acting but it lower dose to avoid hypoglycemia, can uptitrate as tolerated -09/20: Glucose very well-controlled for hospital setting, will hold off on further adjustments at this time, hemoglobin A1c this a.m. 6.3 # Leukocytosis -09/20: White blood cell count 17.4 on arrival, downtrending to 15.5 today, suspect this is reactive as patient has no focal signs or symptoms of infection # Microcytic anemia -09/20: Hemoglobin 9.0, in 2023 hemoglobin was 10.9 and then no values since 2018 before that. If patient has not had a colonoscopy in the past would benefit from one after discharge, will check iron panel Chronic medical problems and/or problems not being actively addressed during today's encounter: # History of coronary artery disease - With previous CABG - As above #Depression/anxiety -Continue home medications #DVT ppx: SCDs Conchis Scherer MD Time spent in the patient's overall evaluation,decision-making process, review of diagnostic data, adjustment of management, discussion with other providers, nursing nursing and ancillary staff involved in patient's care documentation, 36 Minutes Charges/Coding Visit Charges Inpatient E&M: 02017 Subs Hosp L2
[2024-09-20] MEDS: Acetaminophen 325 MG Tablet 650 MG PO ×2 (08:18→16:53)
[2024-09-20 09:09] LABS: Ferritin 24 ng/mL (22-378); Iron 14 ug/dL (50-170); Iron Binding Capacity,Total 328 ug/dL (250-450); Iron Binding Capacity,Unsat 314 ug/dL (228-428)
[2024-09-20] MEDS: Furosemide 20 MG/2 ML VIAL IV (10:45)
[2024-09-20] MEDS: DULoxetine Hcl 60 MG Capsule PO (10:45)
[2024-09-20] MEDS: Metoprolol Tartrate 25 MG Tablet 12.5 MG PO (10:45)
[2024-09-20] MEDS: Aspirin E.C. 81 MG Tablet PO (10:46)
[2024-09-20] MEDS: TICAGRELOR 90 MG TABLET PO ×2 (10:46→20:36)
[2024-09-20] MEDS: Ondansetron 4 MG/2 ML Vial IV (12:57)
--- NOTE | 2024-09-20 14:38 | PN.CARD_ITS ---
Subjective Subjective Seen and evaluated in ICU and discussed with the nursing staff Her family her daughter is at bedside at time of evaluation Still having mild shortness of breath no symptoms of chest pain reported Of shortness of breath is improving. Objective Data Vital Signs: Vital Signs Temp Pulse Resp BP Pulse Ox O2 Del Method O2 Flow Rate 97.2 F L 78 28 H 86/71 L 96 Room Air 2 09/20/24 12:00 09/20/24 13:00 09/20/24 13:00 09/20/24 13:00 09/20/24 13:00 09/20/24 13:00 09/20/24 10:00 FiO2 21 09/19/24 23:00 Oxygen Flow Rate (L/min) 2 Oxygen Delivery Method Room Air Weight: 194 lb 3.636 oz Body Mass Index (BMI) 35.5 Intake & Output: Intake and Output for Last 24 Hours 09/18/24 09/19/24 09/20/24 23:59 23:59 23:59 Intake Total 1000 / 1000 1120 / 1120 Output Total 1350 / 1350 1850 / 1850 Balance -350 / -350 -730 / -730 Lab / Micro Data 09/20/24 02:57 09/20/24 02:57 Labs: Laboratory Results - last 24 hr 09/19/24 14:55: Lactic Acid 1.9 09/19/24 16:21: POC Glucose 137 H 09/19/24 21:01: POC Glucose 127 H 09/20/24 02:57: WBC 15.5 H, RBC 4.55, Hgb 9.0 L, Hct 29.8 L, MCV 65.5 L, MCH 19.8 L, MCHC 30.2 L, RDW Std Deviation 44.5 H, RDW Coeff of Celsa 19.9 H, Plt Count 319, MPV 10.4, Immature Gran % (Auto) 0.400, Neut % (Auto) 82.5 H, Lymph % (Auto) 8.4 L, [place] % (Auto) 7.8, Eos % (Auto) 0.3, Baso % (Auto) 0.6, Absolute Neuts (auto) 12.7 H, Absolute Lymphs (auto) 1.30, Nucleated RBC % 0.2, Sodium 134, Potassium 3.7, Chloride 102, Carbon Dioxide 18.0 L, Anion Gap 14, BUN 13, C reatinine 0.58 L, Estim Creat Clear Calc 69.38, Est GFR (MDRD) Non-Af 99, B UN/Creatinine Ratio 22.7 H, Glucose 156 H, Hemoglobin A1c 6.3 H, Calcium 8.2, I james 14 L, TIBC 328, Iron Saturation 4.0 L, Unsaturated IBC 314, Ferritin 24, Triglycerides 110, Cholesterol 89, LDL Cholesterol, Calc 33, VLDL Cholesterol 22, HDL Cholesterol 34 L, Cholesterol/HDL Ratio 2.63, TSH 2.900 Micro: Microbiology 09/19/24 10:18 Mucosa - Nose SARS-CoV-2, Influenza & RSV (PCR) - Final Cardiology Labs/Tests 09/19/24 14:55: Lactic Acid 1.9 09/20/24 02:57: WBC 15.5 H, RBC 4.55, Hgb 9.0 L, Hct 29.8 L, MCV 65.5 L, MCH 19.8 L, MCHC 30.2 L, Plt Count 319, MPV 10.4, Immature Gran % (Auto) 0.400, Neut % (Auto) 82.5 H, Lymph % (Auto) 8.4 L, [place] % (Auto) 7.8, Eos % (Auto) 0.3, Baso % (Auto) 0.6, Absolute Neuts (auto) 12.7 H, Nucleated RBC % 0.2, Sodium 134, Potassium 3.7, Chloride 102, Carbon Dioxide 18.0 L, Anion Gap 14, BUN 13, C reatinine 0.58 L, Est GFR (MDRD) Non-Af 99, BUN/Creatinine Ratio 22.7 H, Glucose 156 H, Hemoglobin A1c 6.3 H, Calcium 8.2, Iron 14 L, TIBC 328, Iron Saturation 4.0 L, Ferritin 24, Triglycerides 110, Cholesterol 89, VLDL Cholesterol 22, HDL Cholesterol 34 L, Cholesterol/HDL Ratio 2.63 Rhythm: EKG: ECHO: Stress Test: Cardiac Cath: PCI: CT Surgery: Holter monitor: EPS: PPM: CXR: Chest CT Scan: Radiography Diagnostic Testing: Radiology Impression Echocardiogram 09/19/24 12:22 Interpretation Summary Mildly dilated left ventricle. The left atrium is mildly enlarged. Mild diffuse mitral valve thickening. Moderate (2+) mitral valve insufficiency. Pulmonary artery systolic pressure is 61 mmHg. Mild focal aortic valve calcification. The estimated ejection fraction is 30-35 %. Ordering Physician: Conchis Scherer Referring Physician: VANESSA ALFARO Performed By: Vera Arriaga RDCS Chest X-Ray 09/19/24 16:49 IMPRESSION: Mild cardiomegaly and pulmonary vascular congestion. Reading Location: [facility] Assessment & Plan Assessment/Plan (1) Dyspnea on exertion: (2) H/O coronary artery bypass surgery: (3) Type 2 diabetes mellitus: (4) ACS (acute coronary syndrome): PLAN: Cardiac care plan recommendation 69-year-old patient with multiple medical comorbidities Patient had a history of myocardial infarction In 2013 she underwent CABG with BRUNO to LAD, SVG to RCA, SVG to OM2/D1. She presented to the ED complaining of symptoms of progressive shortness of breath. Worsening over the last 3 days. And she had significant change in the EKG with some ST elevation noted in aVR with diffuse ST depression. As well she has elevated cardiac biomarkers with elevated high sensitive troponin. Patient was taken as an emergency to the cardiac Field Representatives Director identified the culprit lesion is the SVG graft to OM1 with a thrombus and high-grade stenosis proximally in the SVG graft underwent successful PCI. Following the procedure she remained stable clinically. Echocardiographic evaluation showed severe LV systolic dysfunction Ejection fraction the range of 30 to 35%. As well she has a moderate mitral regurgitation. Today we discussed the cardiac medication in detail with the nursing staff will continue on dual antiplatelet therapy with Brilinta and aspirin Added beta-randal carvedilol and discontinue the metoprolol tartrate. Added low-dose lisinopril. Patient need to be evaluated further by the primary psychology physician and discuss further plan of medication which will include Entresto, Farxiga, Aldactone and increasing the dose of beta-randal as tolerated. Also recommend LifeVest prior to discharge. Recommend high-dose statin. In addition patient will be scheduled for cardiac rehab program following discharge from the hospital Patient to follow-up with her primary psychology physician following discharge for continuation of cardiac care.
[2024-09-20] MEDS: Carvedilol 3.125 MG TABLET PO (17:09)
[2024-09-20] MEDS: Insulin Glargine-YFGN 100 UNIT/ML Pen 15 UNIT SC (20:37)
[2024-09-20] MEDS: Atorvastatin Calcium 80 MG Tablet PO (20:38)
[2024-09-20 21:18] LABS: Bedside Glucose 138 mg/dL (74-106)
[2024-09-21] VITALS (26 sets, daily range): BP systolic 74–131; BP diastolic 46–114; PULSE 70–81; RESP 14–24; TEMP 36.1–36.6; O2SAT 89–98; BMI 35.2
[2024-09-21 04:45] LABS: Absolute Lymphocyte Count 1.79 X10^3/uL (0.83-4.51); Absolute Neutrophil Count 9.1 X10^3/uL (2.0-7.7); Basophil% 0.8 % (0-1); Eosinophil# 0.25 X10^3/uL; Hematocrit 28.6 % (37-47); Hemoglobin 8.5 g/dL (12.0-15.0); Lymphocyte # 1.79 X10^3/ul (0.83-4.51); Lymphocyte % 14.7 % (19-41); Mean Corp Hgb Conc 29.7 g/dL (32-36); Mean Corpuscular Hgb 19.5 pg (27.0-32.0); Mean Corpuscular Volume 65.7 fL (81-99); Mean Platelet Vol. 10.7 fl (6.2-12.0); Monocyte# 0.95 X10^3/uL; Monocyte% 7.8 % (0-10); NRBC Flagged by Analyzer 0.2 % (0-5); Neutrophil # 9.06 X10^3/uL (2.7-7.7); Neutrophil % 74.3 % (47-70); POSITIVE MORPHOLOGY YES; Platelet Count 323 K/mm3 (150-450); RBC Distribution Width CV 20.1 % (11.6-14.6); RBC Distribution Width SD 44.6 fl (35.1-43.9); Red Blood Count 4.35 M/mm3 (4.2-5.4); White Blood Count 12.2 K/mm3 (4.4-11.0)
[2024-09-21 04:59] LABS: Differential Indicated SCAN CRITERIA MET
[2024-09-21 05:15] LABS: Anion Gap 13 (5-15); BUN 13 mg/dL (4-19); BUN/Creat Ratio 21.8 RATIO (10-20); Calcium,Total 8.2 mg/dL (7.6-11.0); Carbon Dioxide 21.3 mmol/L (21.0-32.0); Chloride 104 mmol/L (98-108); EST Glomerular Filtration Rate 98 (>60); Estimated Creatinine Clearance 69.38 ml/min (50-250); Glucose 96 mg/dL (70-99); Potassium 3.3 mmol/L (3.3-5.1); Sodium Level 139 mmol/L (133-145)
[2024-09-21 05:29] LABS: Anisocytosis 1+
--- NOTE | 2024-09-21 07:14 | PCM.PN.HOSP ---
Reason for Visit Reason for Visit: Diagnoses Type 2 diabetes mellitus without complications (09/19/24) Acute ischemic heart disease, unspecified (09/19/24) Other forms of dyspnea (09/19/24) Presence of aortocoronary bypass graft (09/19/24) Subjective Subjective Patient sitting up in the chair, reports feeling much better, breathing improved, no chest pain Objective Data Objective Data Vital Signs: Vital Signs Temp Pulse Resp BP Pulse Ox O2 Del Method O2 Flow Rate 97.4 F L 78 17 99/47 L 94 Room Air 2 09/21/24 04:00 09/21/24 06:00 09/21/24 06:00 09/21/24 06:00 09/21/24 06:00 09/21/24 06:00 09/20/24 10:00 FiO2 21 09/19/24 23:00 Oxygen Flow Rate (L/min) 2 Oxygen Delivery Method Room Air Weight: 87.4 kg Body Mass Index (BMI) 35.2 Intake & Output: Intake and Output for Last 24 Hours 09/19/24 09/20/24 09/21/24 23:59 23:59 23:59 Intake Total 1000 / 1000 1345 / 1345 425 / 425 Output Total 1350 / 1350 2400 / 2400 500 / 500 Balance -350 / -350 -1055 / -1055 -75 / -75 Lab / Micro Data 09/21/24 04:36 09/21/24 04:36 Labs: Laboratory Results - last 24 hr 09/20/24 02:57: Iron 14 L, TIBC 328, Iron Saturation 4.0 L, Unsaturated IBC 314, Ferritin 24 09/20/24 20:33: POC Glucose 138 H 09/21/24 04:36: WBC 12.2 H, RBC 4.35, Hgb 8.5 L, Hct 28.6 L, MCV 65.7 L, MCH 19.5 L, MCHC 29.7 L, RDW Std Deviation 44.6 H, RDW Coeff of Celsa 20.1 H, Plt Count 323, MPV 10.7, Immature Gran % (Auto) 0.400, Neut % (Auto) 74.3 H, Lymph % (Auto) 14.7 L, [place] % (Auto) 7.8, Eos % (Auto) 2.0, Baso % (Auto) 0.8, Absolute Neuts (auto) 9.1 H, Absolute Lymphs (auto) 1.79, Nucleated RBC % 0.2, Anisocytosis 1+, Sodium 139, Potassium 3.3, Chloride 104, Carbon Dioxide 21.3, Anion Gap 13, BUN 13, Creatinine 0.60 L, Estim Creat Clear Calc 69.38, Est GFR (MDRD) Non-Af 98, BUN/Creatinine Ratio 21.8 H, Glucose 96, Calcium 8.2 Micro: Microbiology 09/19/24 10:18 Mucosa - Nose SARS-CoV-2, Influenza & RSV (PCR) - Final Radiography Diagnostic Testing: Radiology Impression Echocardiogram 09/19/24 12:22 Interpretation Summary Mildly dilated left ventricle. The left atrium is mildly enlarged. Mild diffuse mitral valve thickening. Moderate (2+) mitral valve insufficiency. Pulmonary artery systolic pressure is 61 mmHg. Mild focal aortic valve calcification. The estimated ejection fraction is 30-35 %. Ordering Physician: Conchis Scherer Referring Physician: VANESSA ALFARO Performed By: Vera Arriaga RDCS Physical Exam Narrative General: Alert, oriented, no apparent distress HEENT: Atraumatic, normocephalic Eyes: Anicteric, normal conjunctiva, extraocular movements grossly intact Neck: Supple Respiratory: Slightly diminished at the bases, normal respiratory effort Cardiovascular: Regular rate and rhythm GI: Soft, nontender, nondistended Extremities: No significant pitting edema Musculoskeletal: Moving all extremities Neuro: No overt focal neurological deficits Skin: No rashes appreciated Psych: Cooperative Assessment & Plan Assessment/Plan (1) ACS (acute coronary syndrome): PLAN: Plan # ACS -Patient was a STEMI alert in the ED and was taken emergently to Enterprise Systems Engineer and found to have a subtotal occlusion of one of the CABG grafts that was subsequently stented -Patient had subtotal occlusion of SVG graft to the OM 2 and underwent successful PCI and stenting with drug-eluting stent - Heart healthy diet - Lipid panel in the a.m. - Echocardiogram - DAPT - High intensity statin - Cardiology following - Patient's home metoprolol continued -09/20: Echo completion pending, continue aspirin, statin, Brilinta, cardiology following -09/21: Discussed with electrical instrument maker on-call. Patient on aspirin, statin, Brilinta, beta-randal added, will need to follow-up with her primary electrical instrument maker on an outpatient basis, also will undergo cardiac rehab at [facility] # Acute exacerbation of new onset heart failure with reduced ejection fraction -09/21: Patient had proBNP of almost 13,000 on presentation with shortness of breath, she did have crackles and a dose of Lasix was given. Echo did reveal a mildly dilated left ventricle with a EF of 30 to 35% and moderate global left ventricular systolic dysfunction. PASP also found to be 61 mmHg and 2+ mitral valve insufficiency. Will add fluid restriction, daily weights, I's and O's, may need further Lasix administration though respiratory status fairly stable at this point. Patient had carvedilol and lisinopril added to her regimen by cardiology. Patient will need LifeVest prior to discharge. Can consider adding Entresto and Aldactone on an outpatient basis and can consider Farxiga, will defer the addition of these agents to her primary electrical instrument maker Dr. Melendrez whom she will need to follow with on discharge #Type 2 diabetes mellitus -Glucose checks and sliding scale insulin - Will continue long-acting but it lower dose to avoid hypoglycemia, can uptitrate as tolerated -09/20: Glucose very well-controlled for hospital setting, will hold off on further adjustments at this time, hemoglobin A1c this a.m. 6.3 -09/21: A.m. glucose 138, remains within fairly good control in acute setting, continue present management # Leukocytosis -09/20: White blood cell count 17.4 on arrival, downtrending to 15.5 today, suspect this is reactive as patient has no focal signs or symptoms of infection -09/21: White blood cell count has further down trended without antibiotics, no underlying acute infection noted, no further workup at this time # Microcytic anemia -09/20: Hemoglobin 9.0, in 2023 hemoglobin was 10.9 and then no values since 2018 before that. If patient has not had a colonoscopy in the past would benefit from one after discharge, will check iron panel -09/21: Iron panel does suggest microcytic anemia, hemoglobin further down trended today, not at the level of transfusion however given current need for DAPT now with downtrending hemoglobin and iron deficiency FOBT was checked and this was negative Chronic medical problems and/or problems not being actively addressed during today's encounter: # History of coronary artery disease - With previous CABG - As above #Depression/anxiety -Continue home medications #DVT ppx: SCDs Conchis Scherer MD Time spent in the patient's overall evaluation,decision-making process, review of diagnostic data, adjustment of management, discussion with other providers, nursing nursing and ancillary staff involved in patient's care documentation, 38 Minutes Charges/Coding Visit Charges Inpatient E&M: 70948 Subs Hosp L2
[2024-09-21] MEDS: Acetaminophen 325 MG Tablet 650 MG PO ×2 (08:20→23:11)
[2024-09-21] MEDS: Aspirin E.C. 81 MG Tablet PO (09:26)
[2024-09-21] MEDS: Lisinopril 5 MG Tablet PO (09:26)
[2024-09-21] MEDS: Iron Polysaccharide Complex 150 MG CAPSULE PO (09:26)
[2024-09-21] MEDS: Carvedilol 3.125 MG TABLET PO (09:26)
[2024-09-21] MEDS: DULoxetine Hcl 60 MG Capsule PO (09:26)
[2024-09-21] MEDS: TICAGRELOR 90 MG TABLET PO ×2 (09:26→21:18)
--- NOTE | 2024-09-21 12:54 | PN.CARD_ITS ---
Subjective Subjective No events noted from last night Objective Data Vital Signs: Vital Signs Temp Pulse Resp BP Pulse Ox O2 Del Method O2 Flow Rate 97.4 F L 77 16 122/65 H 96 Room Air 2 09/21/24 08:20 09/21/24 10:00 09/21/24 10:00 09/21/24 10:00 09/21/24 10:00 09/21/24 10:00 09/20/24 10:00 FiO2 21 09/19/24 23:00 Oxygen Flow Rate (L/min) 2 Oxygen Delivery Method Room Air Weight: 192 lb 10.944 oz Body Mass Index (BMI) 35.2 Intake & Output: Intake and Output for Last 24 Hours 09/19/24 09/20/24 09/21/24 23:59 23:59 23:59 Intake Total 1000 / 1000 1345 / 1345 425 / 425 Output Total 1350 / 1350 2400 / 2400 500 / 500 Balance -350 / -350 -1055 / -1055 -75 / -75 Lab / Micro Data 09/21/24 04:36 09/21/24 04:36 Labs: Laboratory Results - last 24 hr 09/20/24 20:33: POC Glucose 138 H 09/21/24 04:36: WBC 12.2 H, RBC 4.35, Hgb 8.5 L, Hct 28.6 L, MCV 65.7 L, MCH 19.5 L, MCHC 29.7 L, RDW Std Deviation 44.6 H, RDW Coeff of Celsa 20.1 H, Plt Count 323, MPV 10.7, Immature Gran % (Auto) 0.400, Neut % (Auto) 74.3 H, Lymph % (Auto) 14.7 L, [place] % (Auto) 7.8, Eos % (Auto) 2.0, Baso % (Auto) 0.8, Absolute Neuts (auto) 9.1 H, Absolute Lymphs (auto) 1.79, Nucleated RBC % 0.2, Anisocytosis 1+, Sodium 139, Potassium 3.3, Chloride 104, Carbon Dioxide 21.3, Anion Gap 13, BUN 13, Creatinine 0.60 L, Estim Creat Clear Calc 69.38, Est GFR (MDRD) Non-Af 98, BUN/Creatinine Ratio 21.8 H, Glucose 96, Calcium 8.2 Micro: Microbiology 09/21/24 11:30 Stool Stool Occult Blood (LACI) - Final 09/20/24 01:58 Urine, Clean Catch Urine Culture - Preliminary Culture exhibits no growth. Cardiology Labs/Tests 09/21/24 04:36: WBC 12.2 H, RBC 4.35, Hgb 8.5 L, Hct 28.6 L, MCV 65.7 L, MCH 19.5 L, MCHC 29.7 L, Plt Count 323, MPV 10.7, Immature Gran % (Auto) 0.400, Neut % (Auto) 74.3 H, Lymph % (Auto) 14.7 L, [place] % (Auto) 7.8, Eos % (Auto) 2.0, Baso % (Auto) 0.8, Absolute Neuts (auto) 9.1 H, Nucleated RBC % 0.2, Sodium 139, Potassium 3.3, Chloride 104, Carbon Dioxide 21.3, Anion Gap 13, BUN 13, C reatinine 0.60 L, Est GFR (MDRD) Non-Af 98, BUN/Creatinine Ratio 21.8 H, Glucose 96, Calcium 8.2 Rhythm: EKG: ECHO: Stress Test: Cardiac Cath: PCI: CT Surgery: Holter monitor: EPS: PPM: CXR: Chest CT Scan: Radiography Diagnostic Testing: Radiology Impression Echocardiogram 09/19/24 12:22 Interpretation Summary Mildly dilated left ventricle. The left atrium is mildly enlarged. Mild diffuse mitral valve thickening. Moderate (2+) mitral valve insufficiency. Pulmonary artery systolic pressure is 61 mmHg. Mild focal aortic valve calcification. The estimated ejection fraction is 30-35 %. Ordering Physician: Conchis Scherer Referring Physician: VANESSA ALFARO Performed By: Vera Arriaga, TOMEKA Physical Exam Cardio Cardio Narrative: Patient comfortable no symptoms reported. Cardiac rhythm is sinus rhythm Cardiac exam S1-S2 regular Chest exam clear auscultation bilateral Examination lower extremity no lower extremity edema Assessment & Plan Assessment/Plan (1) Dyspnea on exertion: (2) H/O coronary artery bypass surgery: (3) Atherosclerosis of coronary artery of [place] heart without angina pectoris: (4) Old myocardial infarction: (5) ACS (acute coronary syndrome): PLAN: 69-year-old patient with extensive cardiac history Had a history of myocardial infarction 2014 Underwent CABG with BRUNO to LAD, SVG to OM1/D1 And SVG to RCA. She had a cardiac cath by her primary grain mill products inspector last year Which showed occluded graft to SVG to the RCA Patent BRUNO to LAD which is tortuous BRUNO. With nonobstructive atherosclerosis. And on this admission presentation with symptoms of shortness of breath With significant change in the EKG and elevated high sensitive troponins clinical impression of ACS/non-STEMI does not qualify for the criteria for STEMI because she does not have any symptoms of chest pain is mainly shortness of breath. And diffuse change in the EKG in addition to ST elevation noted in the aVR single lead. Based on the clinical presentation and the abnormal EKG with cardiac biomarkers she was started on medication with Brilinta heparin aspirin and was taken to the emergency to the Pastry Decorator Identified the culprit lesion at the SVG graft thrombotic lesion involving the proximal portion of the SVG graft underwent successful PCI using drug-eluting stent 3.5 x 26 mm and achieve an excellent result Post CA she had evaluation by echocardiogram which showed LV function severely reduced Ejection fraction of 30 to 35% she had a prior history of myocardial infarction as well. As well she has moderate mitral regurgitation. Cardiac care plan; I reviewed and discussed all her current medication in detail. 1. Will continue on dual antiplatelet therapy with Brilinta and aspirin 2. Continue on beta-randal as tolerated with carvedilol Metoprolol has been discontinued 3. High-dose statin. 4. Patient had a history of diabetes mellitus Would recommend to start on Farxiga in addition to Entresto and Aldactone as tolerated by her blood pressure Patient is scheduled to have a LifeVest tomorrow. Following completion of her treatment then patient can be followed up on discharge by her primary grain mill products inspector for continuation of cardiac care management. Patient as well as scheduled for cardiac rehab program here at [facility]. Ramses Hansen MD,FACC,[facility] security nurse
[2024-09-21] MEDS: Atorvastatin Calcium 80 MG Tablet PO (21:18)
[2024-09-21] MEDS: Insulin Glargine-YFGN 100 UNIT/ML Pen 15 UNIT SC (21:18)
[2024-09-21 21:42] LABS: Bedside Glucose 111 mg/dL (74-106)
[2024-09-22] VITALS (10 sets, daily range): BP systolic 85–106; BP diastolic 49–71; PULSE 66–75; RESP 12–22; TEMP 35.9–36.4; O2SAT 93–98
[2024-09-22 05:51] LABS: Absolute Lymphocyte Count 1.82 X10^3/uL (0.83-4.51); Absolute Neutrophil Count 7.6 X10^3/uL (2.0-7.7); Basophil# 0.07 X10^3/uL; Basophil% 0.7 % (0-1); Eosinophil# 0.25 X10^3/uL; Eosinophils% 2.4 % (0-5); Hematocrit 32.2 % (37-47); Hemoglobin 9.3 g/dL (12.0-15.0); Lymphocyte # 1.82 X10^3/ul (0.83-4.51); Lymphocyte % 17.3 % (19-41); Mean Corp Hgb Conc 28.9 g/dL (32-36); Mean Corpuscular Hgb 19.2 pg (27.0-32.0); Mean Corpuscular Volume 66.4 fL (81-99); Mean Platelet Vol. 10.2 fl (6.2-12.0); Monocyte% 7.6 % (0-10); NRBC Flagged by Analyzer 0.3 % (0-5); Neutrophil # 7.57 X10^3/uL (2.7-7.7); Neutrophil % 71.6 % (47-70); POSITIVE MORPHOLOGY YES; Platelet Count 408 K/mm3 (150-450); RBC Distribution Width CV 20.8 % (11.6-14.6); RBC Distribution Width SD 46.1 fl (35.1-43.9); Red Blood Count 4.85 M/mm3 (4.2-5.4); White Blood Count 10.6 K/mm3 (4.4-11.0)
[2024-09-22 05:54] LABS: Differential Indicated SCAN CRITERIA MET
[2024-09-22 06:35] LABS: Anisocytosis 3+; Differential Comment SCANNED; Microcytosis 1+; Platelet Estimate SLT INC (ADEQ); Polychromasia 1+
[2024-09-22 06:36] LABS: Ovalocyte 3+
[2024-09-22 06:42] LABS: Anion Gap 10 (5-15); BUN 10 mg/dL (4-19); BUN/Creat Ratio 17.1 RATIO (10-20); Calcium,Total 8.2 mg/dL (7.6-11.0); Carbon Dioxide 22.6 mmol/L (21.0-32.0); Chloride 106 mmol/L (98-108); Creatinine, Serum 0.56 mg/dL (0.70-1.20); EST Glomerular Filtration Rate 99 (>60); Estimated Creatinine Clearance 69.08 ml/min (50-250); Glucose 109 mg/dL (70-99); Potassium 3.4 mmol/L (3.3-5.1); Sodium Level 139 mmol/L (133-145)
--- NOTE | 2024-09-22 07:26 | PCM.DC ---
Discharge Instructions Diet Discharge Diet: Low fat / Low cholesterol and Carb Control Diet DC O2, CPAP, BIPAP needs Home O2 Discharge instructions: No Dressing / Incision Discharge Activity: Return to Normal Activity Dressing / Incision Call your doctor if you observe: Fever of 101 or Higher, Shortness of breath, Dizziness, Fainting spells, Swelling in the ankles, Chest pain and Increased palpitations (irregular heartbeat) Follow Up Care Test Results: Test results from this visit will be discussed in further detail at your follow-up appointment, if applicable. Discharge Plan Admission Admit Date/Time: 09/19/24 12:25 Attending Provider: Pablito Kulkarni Primary Care Provider: Jaqueline Vo Consulting Providers: Ramses Hansen; Conchis Scherer Discharge Orders/Prescriptions Prescriptions: New polysaccharide iron complex [Ferrex 150] 150 mg iron Capsule 150 mg PO DAILY 30 Days Qty: 30 0RF Brilinta 90 mg Tablet 90 mg PO BID 30 Days Qty: 60 0RF lisinopril 5 mg Tablet 5 mg PO 1700 30 Days Qty: 30 0RF metoprolol succinate 25 mg Tablet Extended Release 24 Hr 12.5 mg PO DAILY 30 Days Qty: 15 0RF Continued duloxetine [Cymbalta] 60 mg capsule,delayed release(DR/EC) 60 mg PO DAILY insulin glargine 100 unit/mL solution 30 unit SC QHS Patient Comments: LONG ACTING INSULIN pioglitazone 15 MG tablet 15 mg PO DAILY aspirin 81 MG tablet 81 mg PO DAILY@0800 empagliflozin 25 MG tablet 25 mg PO DAILY Patient Comments: take 1 tablet by mouth every morning metformin 500 mg tablet extended release 24 hr 1,000 mg PO BID Trulicity 3 mg/0.5 mL pen injector 3 mg SUBCUT .weekly Patient Comments: [NO ORIGINAL SIG] Rx Instructions: taken last 09/16/24 once a week rosuvastatin 40 mg tablet 40 mg PO DAILY Qty: 90 3RF Discontinued metoprolol tartrate 25 mg tablet 12.5 mg PO BID Qty: 90 3RF Referrals / Follow Up: Jaqueline Vo MD [Primary Care Provider] - Within 1 Week Gordon Mc MD [Med Staff - Active Staff] - Within 2 Weeks Disposition Disposition (needs filled in before D/C Order can be placed): Home, Self Care
--- NOTE | 2024-09-22 08:01 | PN.CARD_ITS ---
Subjective Subjective Patient denies any chest pain shortness of breath or dizziness. Blood pressure has been on the low side in the 90?95 systolic range. Her Coreg was held last evening. Objective Data Vital Signs: Vital Signs Temp Pulse Resp BP Pulse Ox O2 Del Method O2 Flow Rate 96.6 F L 74 20 H 91/54 L 98 Room Air 2 09/22/24 07:45 09/22/24 07:45 09/22/24 07:45 09/22/24 07:45 09/22/24 07:45 09/22/24 07:45 09/20/24 10:00 FiO2 21 09/19/24 23:00 Oxygen Flow Rate (L/min) 2 Oxygen Delivery Method Room Air Weight: 192 lb 10.944 oz Body Mass Index (BMI) 35.2 Intake & Output: Intake and Output for Last 24 Hours 09/20/24 09/21/24 09/22/24 23:59 23:59 23:59 Intake Total 1345 / 1345 425 / 425 Output Total 2400 / 2400 500 / 500 Balance -1055 / -1055 -75 / -75 Lab / Micro Data Attestation: I reviewed the patient's lab results. 09/22/24 05:42 09/22/24 05:42 Labs: Laboratory Results - last 24 hr 09/21/24 21:15: POC Glucose 111 H 09/22/24 05:42: WBC 10.6, RBC 4.85, Hgb 9.3 L, Hct 32.2 L, MCV 66.4 L, MCH 19.2 L, MCHC 28.9 L, RDW Std Deviation 46.1 H, RDW Coeff of Celsa 20.8 H, Plt Count 408, MPV 10.2, Immature Gran % (Auto) 0.400, Neut % (Auto) 71.6 H, Lymph % (Auto) 17.3 L, [place] % (Auto) 7.6, Eos % (Auto) 2.4, Baso % (Auto) 0.7, Absolute Neuts (auto) 7.6, Absolute Lymphs (auto) 1.82, Nucleated RBC % 0.3, Differential Comment SCANNED, Platelet Estimate SLT INC, Polychromasia 1+, Anisocytosis 3+, Microcytosis 1+, Ovalocytes 3+, Sodium 139, Potassium 3.4, Chloride 106, Carbon Dioxide 22.6, Anion Gap 10, BUN 10, Creatinine 0.56 L, Estim Creat Clear Calc 69.08, Est GFR (MDRD) Non-Af 99, BUN/Creatinine Ratio 17.1, Glucose 109 H, Calcium 8.2 Micro: Microbiology 09/21/24 11:30 Stool Stool Occult Blood (LACI) - Final 09/20/24 01:58 Urine, Clean Catch Urine Culture - Preliminary Culture exhibits no growth. Rhythm Strip Rhythm Strip: Sinus Rhythm Rate: 75 Cardiology Labs/Tests 09/22/24 05:42: WBC 10.6, RBC 4.85, Hgb 9.3 L, Hct 32.2 L, MCV 66.4 L, MCH 19.2 L, MCHC 28.9 L, Plt Count 408, MPV 10.2, Immature Gran % (Auto) 0.400, Neut % (Auto) 71.6 H, Lymph % (Auto) 17.3 L, [place] % (Auto) 7.6, Eos % (Auto) 2.4, Baso % (Auto) 0.7, Absolute Neuts (auto) 7.6, Nucleated RBC % 0.3, Sodium 139, Potassium 3.4, Chloride 106, Carbon Dioxide 22.6, Anion Gap 10, BUN 10, C reatinine 0.56 L, Est GFR (MDRD) Non-Af 99, BUN/Creatinine Ratio 17.1, Glucose 109 H, Calcium 8.2 Rhythm: EKG: ECHO: Stress Test: Cardiac Cath: PCI: CT Surgery: Holter monitor: EPS: PPM: CXR: Chest CT Scan: Physical Exam Const alert and oriented x3 HEENT normocephalic Neck no JVD Chest Chest: midline sternotomy incision Resp normal respiratory effort and clear to auscultation bilaterally Cardio regular rate, regular rhythm, S1 normal heart sound, S2 normal heart sound, no murmurs, no rub and no gallops Extremity no pedal edema Neuro Neuro Narrative: Alert and oriented x 3 Psych mental status grossly normal Assessment & Plan Assessment/Plan (1) ACS (acute coronary syndrome): PLAN: Patient presented with profound dyspnea on exertion was found to have an occluded vein graft to the OM branch of the circumflex. She was treated with drug-eluting stent to the occluded vein graft. The patient is tolerating aspirin and Brilinta. Hemoglobin has been on the low side it was 9.5 on admission and is dropped down to 8.5 and is now back up to 9.3 today. This needs to be monitored closely. She does have a history of iron deficiency anemia by her report. The patient should be continued uninterrupted on her Brilinta and aspirin. She will be follow-up in the office in 7 to 10 days. (2) Dyspnea on exertion: PLAN: Patient's dyspnea on exertion was her anginal equivalent. She denies any recurrence but has not been very active since she has been hospitalized. She will be ambulated prior to discharge. (3) Essential hypertension: PLAN: Patient has been on beta-randal and NARGIS inhibitor therapy in the past. Her NARGIS had to be discontinued due to low blood pressure. We have now decreased her beta-randal therapy to metoprolol succinate 12.5 mg every morning with breakfast and lisinopril 5 mg with supper. (4) H/O coronary artery bypass surgery: PLAN: Patient's status post remote coronary bypass graft surgery originally in 2013 she received a BRUNO to the LAD a vein graft to the diagonal vein graft to the OM branch of the circumflex and the vein graft to the distal right coronary artery. 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 (6) Pure hypercholesterolemia: PLAN: Patient has been started on intensive statin therapy with atorvastatin 80 mg daily. Fasting lipids and LFTs will be checked in 6 to 12 weeks. PLAN: Plan 1. The patient should be able to be discharged to home later today after she is up and ambulatory in the halls. 2. Recommend change the patient's beta-randal therapy due to low blood pressure. Will discontinue the Coreg and put her on metoprolol succinate 12.5 mg every morning with breakfast. 3. Continue lisinopril 5 mg every afternoon with supper. 4. Continue the patient's home iron replacement therapy. 5. Will repeat echocardiogram as a limited echo in 3 months to reevaluate the LV function. 6. Will check hemoglobin and hematocrit in 7 to 10 days when she is seen in the office. 7. Will follow-up with fasting lipids and liver functions in 6 weeks. 8. The patient should call the [place] to be followed up either with Dr. Mc or one of the nurse practitioners in 7 to 10 days. Charges/Coding Visit Charges Inpatient E&M: 52364 Subs Hosp L2
[2024-09-22] MEDS: Metoprolol(XL)Succ 25 MG Tablet 12.5 MG PO (08:30)
[2024-09-22] MEDS: TICAGRELOR 90 MG TABLET PO (08:31)
[2024-09-22] MEDS: DULoxetine Hcl 60 MG Capsule PO (08:31)
[2024-09-22] MEDS: Iron Polysaccharide Complex 150 MG CAPSULE PO (08:31)
[2024-09-22] MEDS: Aspirin E.C. 81 MG Tablet PO (08:31)
--- NOTE | 2024-09-22 09:47 | CASEMGMT ---
Pt has an order for DC placed. Per ICU rounds, pt RN states that the pt does not require a life vest. Pt has a new Rx for Brilinta. TC to [facility] pharmacy who states that the pt's insurance refuses to the pay for the brand name. [facility] states that they can call in the generic form for tomorrow at the earliest. TC to [facility] who states that they do not have the generic form yet and that the savings coupon is not functioning any longer. This L[facility] DURAN collaborated with Dr. Kulkarni who states that he plans to prescribe the pt with Plavix instead. LANE DURAN to pt room at this time. Pt states that she is agreeable with this and that she will have her daughter clam picker her prescriptions at [facility] and bring them to the pts room prior to DC. Pt RN updated. Pt denies further DC needs and states that she feels safe returning home today. María HERNANDEZ RN, CM
[2024-09-22] MEDS: Clopidogrel Bisulfate 300 MG Tablet PO (11:06)
--- NOTE | 2024-09-22 11:41 | PHA.DC.MC.R ---
Pharmacy [facility] Service has performed discharge medication reconciliation and counseling for this patient. 1. Clopidogrel 75mg PO daily 2. Lisinopril 5mg PO daily 3. Metoprolol succinate 12.5mg PO daily 4. Ferrex 150mg PO daily The patient's discharge medication list was reviewed for discrepancies and discrepancies were resolved. The patient was counseled on the following discharge medications and changes in medications for homegoing were reviewed. The Reason for Use, instructions for use, and potential side effects were reviewed for all new medications. The patient's questions regarding all of their medications were answered. The patient was able to verbally demonstrate an understanding of their discharge medications. Patient counseled by instructor adjunct pharmacy technician, Justin. Medications at Discharge Home Medications aspirin 81 mg tablet,delayed release 81 mg PO DAILY@0800 heart health 10/24/18 empagliflozin 25 mg tablet 25 mg PO DAILY diabetes 10/24/18 pioglitazone 15 mg tablet 15 mg PO DAILY dm 10/24/18 duloxetine 60 mg capsule,delayed release (Cymbalta) 60 mg PO DAILY depress 08/01/19 insulin glargine 100 unit/mL subcutaneous solution 30 unit subcut QHS diabetes 10/26/21 metformin 500 mg tablet,extended release 24 hr 1,000 mg PO BID dm 10/26/21 rosuvastatin 40 mg tablet 40 mg PO DAILY cholesterol #90 tabs 05/23/24 dulaglutide 3 mg/0.5 mL subcutaneous pen injector (Trulicity) 3 mg subcut .weekly diabet 09/19/24 clopidogrel 75 mg tablet (Plavix) 75 mg PO DAILY #30 tabs 09/22/24 lisinopril 5 mg tablet 5 mg PO 1700 30 days #30 tabs 09/22/24 metoprolol succinate 25 mg tablet,extended release 24 hr 12.5 mg (1/2 x 25 mg) PO DAILY 30 days #15 tabs 09/22/24 polysaccharide iron complex 150 mg iron capsule (Ferrex) 150 mg PO DAILY 30 days #30 caps 09/22/24
--- NOTE | 2024-09-22 12:38 | PCM.DC.SUM ---
Providers Date of Admission: 09/19/24 Primary Care Physician: Dr. Jaqueline Vo MD Consultations 09/19/24 12:23 Consult: Cardiology Routine Consulting Provider: Ramses Hansen Reason for Consult: ACS EMERGENT Consult: No MD Notified: Yes Date Notified: 09/19/24 Time Notified: 12:23 Method of Notification: ED Physician Initiated Reason For Visit: STEMI Diagnosis Discharge Diagnosis (1) ACS (acute coronary syndrome): Status: Acute Code(s): I24.9 - Acute ischemic heart disease, unspecified (2) Dyspnea on exertion: Status: Acute Code(s): R06.09 - Other forms of dyspnea (3) Essential hypertension: Status: Chronic Code(s): I10 - Essential (primary) hypertension (4) H/O coronary artery bypass surgery: Status: Chronic Code(s): Z95.1 - Presence of aortocoronary bypass graft (5) Type 2 diabetes mellitus: Status: Chronic Code(s): E11.9 - Type 2 diabetes mellitus without complications Qualifiers: Diabetes mellitus complication status: with circulatory complication Diabetes mellitus complication detail: with other circulatory complications Diabetes mellitus detention insulin use: with rn long term care use Qualified Code(s): E11.59 - Type 2 diabetes mellitus with other circulatory complications; 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 (6) Pure hypercholesterolemia: Status: Chronic Code(s): E78.00 - Pure hypercholesterolemia, unspecified Medications at Discharge Home Medications aspirin 81 mg tablet,delayed release 81 mg PO DAILY@0800 [facility] 10/24/18 empagliflozin 25 mg tablet 25 mg PO DAILY diabetes 10/24/18 pioglitazone 15 mg tablet 15 mg PO DAILY dm 10/24/18 duloxetine 60 mg capsule,delayed release (Cymbalta) 60 mg PO DAILY depress 08/01/19 insulin glargine 100 unit/mL subcutaneous solution 30 unit subcut QHS diabetes 10/26/21 metformin 500 mg tablet,extended release 24 hr 1,000 mg PO BID dm 10/26/21 rosuvastatin 40 mg tablet 40 mg PO DAILY cholesterol #90 tabs 05/23/24 dulaglutide 3 mg/0.5 mL subcutaneous pen injector (Trulicity) 3 mg subcut .weekly diabet 09/19/24 clopidogrel 75 mg tablet (Plavix) 75 mg PO DAILY #30 tabs 09/22/24 lisinopril 5 mg tablet 5 mg PO 1700 30 days #30 tabs 09/22/24 metoprolol succinate 25 mg tablet,extended release 24 hr 12.5 mg (1/2 x 25 mg) PO DAILY 30 days #15 tabs 09/22/24 polysaccharide iron complex 150 mg iron capsule (Ferrex) 150 mg PO DAILY 30 days #30 caps 09/22/24 Hospital Course Operations None Procedures None Summary of Care Provided Minutes Spent on Discharge: 32 Hospital Course: Per HPI: LONDON CURRY, is a 69 F with a history of coronary artery disease status post CABG, type 2 diabetes mellitus, hypertension who presented [facility] ED 09/19/2024 with increasing shortness of breath for 3 days especially on exertion with mild chest tightness ultimately prompting her to come to the ED. On arrival to the ED patient with heart rate of 111, blood pressure 110/52 with respiratory rate of 22, patient was 100% on room air. EKG revealed depressions in lead I, aVL and 5 and V6 with some elevation in V1 as well as aVR and a STEMI alert was called, patient was given aspirin and heparin as well as Brilinta and taken to the [facility] with Dr. Hansen where she underwent emergent cardiac catheterization and the culprit lesion was identified at the SVG graft with subtotal occlusion to the OM 2, patient underwent successful PCI with drug-eluting stent and transferred to the ICU. Hospitalist contacted to admit patient with cardiology consult. Patient evaluated close heart cath and intervention, reports that her breathing is significantly improved and she has no more chest tightness, denies any recent cough or fever, no leg swelling or weight gain but does note increased shortness of breath on exertion and chest tightness for 3 days, again which she reports are significantly improved. No other new or acute complaints Hospital Course: 1. STEMI in the setting of CAD status post CABG/new onset systolic CHF/essential HTN/HLD?69-year-old female presented to the hospital as a STEMI alert, she was taken to the [facility] where she was found to have a subtotal occlusion of one of her CABG grafts which was stented. She was started on Brilinta as well as continued on her home aspirin. She was doing well on the day of discharge, echo demonstrated an EF of 30 to 35% with a PASP of 61 mmHg. She was started initially on Coreg and lisinopril however she had some hypotension so cardiology, on the day of discharge, changed her from Coreg to 2 metoprolol succinate 12.5 mg daily and switched her lisinopril to nightly dosing. She will need to follow-up with cardiology in 2 weeks. Also unfortunately her insurance does not cover Brilinta and we could not get the generic version in time so she was loaded with Plavix on the day of discharge and sent home on 75 mg p.o. daily of Plavix. When she follows up with cardiology they can attempt to see if insurance will cover the generic version of Brilinta. Blood pressures were on the lower end with stable mean arterial pressures and she was asymptomatic. It was discussed with her the plan for discharge today and she expressed understanding of the risks and benefits of going home and would like to go home today. Will also continue her Jardiance for her diabetes as well as her new systolic CHF. 2. Type 2 diabetes, iron deficiency anemia, anxiety, depression are all chronic medical conditions which complicate her care. Her home medications were continued where appropriate. Physical Exam Narrative General: Alert, Oriented x3, Cooperative, No apparent distress HEENT: Atraumatic, PERRLA, EOMI, Normocephalic Oral: Moist Mucosa Neck: Supple, No JVD Lungs: Diminished, Normal air movement, No rhonchi, No wheeze, No rales Cardiovascular: Regular rate, Regular Rhythm, Normal S1, Normal S2, No murmurs Abdomen: Soft, Non Tender, Non-Distended, No Hepato-splenomegaly Extremities: No edema, Capillary Refill Less than 3 Seconds Skin: No rashes, No breakdown Musculoskeletal: No Tenderness to Palpation of Joints or Extremities Neurological: No focal neurological deficits, Motor Exam 5/5 strength throughout, Sensory exam intact to light touch and pain Psych/Mental Status: Normal Affect, Appropriate Weight / BMI Weight Weight: 192 lb 10.944 oz Body Mass Index (BMI) 35.2 ABG / Lab / Microbiology Data 09/22/24 05:42 09/22/24 05:42 Laboratory: Laboratory Results - last 24 hr 09/21/24 21:15: POC Glucose 111 H 09/22/24 05:42: WBC 10.6, RBC 4.85, Hgb 9.3 L, Hct 32.2 L, MCV 66.4 L, MCH 19.2 L, MCHC 28.9 L, RDW Std Deviation 46.1 H, RDW Coeff of Celsa 20.8 H, Plt Count 408, MPV 10.2, Immature Gran % (Auto) 0.400, Neut % (Auto) 71.6 H, Lymph % (Auto) 17.3 L, [place] % (Auto) 7.6, Eos % (Auto) 2.4, Baso % (Auto) 0.7, Absolute Neuts (auto) 7.6, Absolute Lymphs (auto) 1.82, Nucleated RBC % 0.3, Differential Comment SCANNED, Platelet Estimate SLT INC, Polychromasia 1+, Anisocytosis 3+, Microcytosis 1+, Ovalocytes 3+, Sodium 139, Potassium 3.4, Chloride 106, Carbon Dioxide 22.6, Anion Gap 10, BUN 10, Creatinine 0.56 L, Estim Creat Clear Calc 69.08, Est GFR (MDRD) Non-Af 99, BUN/Creatinine Ratio 17.1, Glucose 109 H, Calcium 8.2 Microbiology: Microbiology 09/20/24 01:58 Urine, Clean Catch Urine Culture - Final Culture exhibits no growth. 09/21/24 11:30 Stool Stool Occult Blood (LACI) - Final 09/19/24 10:18 Mucosa - Nose SARS-CoV-2, Influenza & RSV (PCR) - Final D/C Instructions Discharge Diet: Low fat / Low cholesterol and Carb Control Diet Call your doctor if you observe: Fever of 101 or Higher, Shortness of breath, Dizziness, Fainting spells, Swelling in the ankles, Chest pain and Increased palpitations (irregular heartbeat) DC O2, CPAP, BIPAP Needs Home O2 Discharge instructions: No Meaningful Use Info Meaningful Use Meaningful Use Diagnoses (Choose all that apply): None applicable Ischemic Stroke Statin Dosing Therapy Reference: STATIN DOSE THERAPY REFERENCE: * Patients > 75 years receive moderate or high dose statin therapy. * Patients 75 years or YOUNGER should receive HIGH intensity statin dose unless contraindicated. You will be required to document reason for non-treatment if statin daily dose does not meet guidelines. HIGH DOSE STATIN THERAPY DAILY Atorvastatin > than or = to 40 mg Rosuvastatin > than or = to 20 mg Amlodipine + Atorvastatin > than or = to 2.5/40 mg Ezetimibe + Simvastatin 10/80 mg Simvastatin 80mg Discharge Plan Admission Admit Date/Time: 09/19/24 12:25 Attending Provider: Pablito Kulkarni Primary Care Provider: Jaqueline Vo Consulting Providers: Ramses Hansen; Conchis Scherer Discharge Orders/Prescriptions Prescriptions: New polysaccharide iron complex [Ferrex 150] 150 mg iron Capsule 150 mg PO DAILY 30 Days Qty: 30 0RF lisinopril 5 mg Tablet 5 mg PO 1700 30 Days Qty: 30 0RF metoprolol succinate 25 mg Tablet Extended Release 24 Hr 12.5 mg PO DAILY 30 Days Qty: 15 0RF clopidogrel [Plavix] 75 mg tablet 75 mg PO DAILY Qty: 30 0RF Continued duloxetine [Cymbalta] 60 mg capsule,delayed release(DR/EC) 60 mg PO DAILY insulin glargine 100 unit/mL solution 30 unit SC QHS Patient Comments: LONG ACTING INSULIN pioglitazone 15 MG tablet 15 mg PO DAILY aspirin 81 MG tablet 81 mg PO DAILY@0800 empagliflozin 25 MG tablet 25 mg PO DAILY Patient Comments: take 1 tablet by mouth every morning metformin 500 mg tablet extended release 24 hr 1,000 mg PO BID Trulicity 3 mg/0.5 mL pen injector 3 mg SUBCUT .weekly Patient Comments: [NO ORIGINAL SIG] Rx Instructions: taken last 09/16/24 once a week rosuvastatin 40 mg tablet 40 mg PO DAILY Qty: 90 3RF Discontinued metoprolol tartrate 25 mg tablet 12.5 mg PO BID Qty: 90 3RF Referrals / Follow Up: Jaqueline Vo MD [Primary Care Provider] - 09/23/24 1:00 pm Gordon Mc MD [Med Staff - Active Staff] - 09/25/24 11:00 am Disposition Disposition (needs filled in before D/C Order can be placed): Home, Self Care Charges/Coding Visit Charges Inpatient E&M: 69252 Disch Hosp >30min
== END 2024-09-22 12:00 | disposition home or self-care (01) | DRG 321 ==
LOC: ED 10:48 → ICU 12:16
PROVIDERS: Internal Medicine; Admitting Provider Internal Medicine Interventional Cardiology; Emergency Provider Emergency Medicine; PCP Internal Medicine; Referring Provider Internal Medicine Interventional Cardiology; Visit Provider Family Medicine
DX: I24.9 Acute ischemic heart disease, unspecified (principal); I50.21 Acute systolic (congestive) heart failure; I11.0 Hypertensive heart disease with heart failure; E11.65 Type 2 diabetes mellitus with hyperglycemia; D50.9 Iron deficiency anemia, unspecified; F32.A Depression, unspecified; I34.0 Nonrheumatic mitral (valve) insufficiency; E66.9 Obesity, unspecified; E78.00 Pure hypercholesterolemia, unspecified; Z79.4 Long term (current) use of insulin; I25.10 Atherosclerotic heart disease of native coronary artery without angina pectoris; I25.2 Old myocardial infarction; I25.84 Coronary atherosclerosis due to calcified coronary lesion; F41.9 Anxiety disorder, unspecified; Z68.35 Body mass index [BMI] 35.0-35.9, adult; Z79.82 Long term (current) use of aspirin; Z79.2 Long term (current) use of antibiotics; Z79.84 Long term (current) use of oral hypoglycemic drugs; Z87.891 Personal history of nicotine dependence; Z79.85 Long-term (current) use of injectable non-insulin antidiabetic drugs; Z79.891 Long term (current) use of opiate analgesic; Z79.02 Long term (current) use of antithrombotics/antiplatelets; Z95.1 Presence of aortocoronary bypass graft; Z88.2 Allergy status to sulfonamides; Z88.8 Allergy status to other drugs, medicaments and biological substances; R06.09 Other forms of dyspnea
CPT/HCPCS: 71045; 80048; 80053; 82274; 82962; 83605; 83880; 84484; 85025; 85347; 85610; 85730; 87631; 92937; 93005; 93306; 93455; 94668; 97802; 99252; 99285; C1894; Q9957; Q9967; A4216; C1725; C1769; C1874; C1887; C9604; G0463; J1940; J2405

== ENCOUNTER 2024-11-18 17:31 | Emergency (ER) | payer MEDICARE, SELFPAY ==
[2024-11-18 17:33] VITALS: BP 102/53; PULSE 75; RESP 16; TEMP 37; O2SAT 99; BMI 31.4
--- NOTE | 2024-11-18 18:16 | EDS_ITS ---
HPI HPI - Fall History of Present Illness Chief Complaint: Fall Informant: patient Occured/Mechanism Occurred: Today Mechanism/Context: Yes same level fall Usually ambulates: Without assistance Pain/Injury Pain Location: face (Right cheek), upper extremity (Bilateral wrists) and lower extremity (Right knee) Quality of Pain: Aching Worsened by: Movement Relieved by: Nothing Associated Symptoms Associated Symptoms: Negative for Parasthesias, Weakness, Loss of function, Inability to ambulate, Loss of consciousness or Amnesia Narrative Narrative: Patient presents after a fall that occurred today. Patient states she was pushing her trash can which was full of water. Patient states that she fell and injured her bilateral wrists, hands, right knee, and right cheek. Patient denies any loss of consciousness. Patient describes her pain as aching. Patient states it is worse with any movement. Patient is unsure of her last tetanus. Patient denies any paresthesias or weakness. Patient was able to stand up and ambulate after the fall. Tetanus Immunization: Unknown [facility] Medical History STEMI (ST elevation myocardial infarction) (09/19/24) Sprain of left foot Left ankle sprain Strain of left knee Strain of left hip Lumbar contusion Acute lumbar myofascial strain Abnormal stress test Pure hypercholesterolemia Essential hypertension Depression Atherosclerosis of coronary artery of [place] heart without angina pectoris Obesity Old myocardial infarction Hyperlipidemia Home Medications ?Medication ?Instructions ?Recorded ?Last Taken ?Type aspirin 81 mg tablet,delayed 81 mg PO DAILY@0800 [facility] 10/24/18 09/19/24 History release empagliflozin 25 mg tablet 25 mg PO DAILY diabetes 09/19/24 History pioglitazone 15 mg tablet 15 mg PO DAILY dm 10/24/18 0 09/19/24 History duloxetine 60 mg capsule,delayed 60 mg PO DAILY depres s 08/01/19 09/19/24 History release (Cymbalta) insulin glargine 100 unit/mL 30 unit subcut QHS diabet es 10/26/21 09/18/24 History subcutaneous solution metformin 500 mg tablet,extended 1,000 mg PO BID dm 09/19/24 History release 24 hr rosuvastatin 40 mg tablet 40 mg PO DAILY cholesterol # 90 tabs 05/23/24 09/18/24 Rx dulaglutide 3 mg/0.5 mL 3 mg subcut .weekly diabet 0 09/19/24 Unknown History subcutaneous pen injector (Trulicity) polysaccharide iron complex 150 mg 150 mg PO DAILY 30 days #30 caps 09/22/24 Unknown Rx iron capsule (Ferrex) metoprolol succinate 25 mg 25 mg PO DAILY 30 days #90 tabs 09/25/24 Unknown Rx tablet,extended release 24 hr clopidogrel 75 mg tablet (Plavix) 75 mg PO DAILY #90 t abs 10/20/24 Unknown Rx lisinopril 5 mg tablet 5 mg PO 1700 #90 tabs Unknown Rx Allergy/AdvReac Type Severity Reaction Status Date / Time Sulfa (Sulfonamide Allergy Hives Verified 11/18/24 17:33 Antibiotics) hydrocodone bitartrate (From AdvReac Nausea Verified 11/18/24 17:33 Vicodin) Family History Mother CAD (coronary artery disease) Surgical History Stented coronary artery (09/19/24) History of cataract surgery History of carpal tunnel release Hx of cholecystectomy H/O coronary artery bypass surgery (~05/04/14) Social History Smoking Status: Unknown if ever smoked how long ago did patient quit smokin alcohol intake: never substance use type: does not use caffeine: Yes Type: coffee Number of servings: 1 ROS ROS ED Constitutional Constitutional ED: Denies chills or fever(s) Eyes Eyes: Denies blurry vision or change in vision ENT ENT ED: Denies rhinorrhea or sore throat Cardiovascular Cardiovascular: Denies chest pain or palpitations Respiratory/Chest Respiratory/Chest: Denies cough or dyspnea Gastrointestinal Gastrointestinal: Denies nausea or vomiting Genitourinary Genitourinary ED: Denies dysuria or hematuria Musculoskeletal Musculoskeletal: Denies back pain or neck pain Integumentary Reports Abrasions; Denies abscess or rash Neurologic Neurologic: Denies headache(s) or weakness Allergic/Immunologic Allergic/Immunologic ED: Denies mouth swelling or urticaria EXAM Physical Exam Const Vital Signs: 11/18/24 17:33 11/18/24 18:09 11/18/24 19:33 Temperature 98.6 F Temperature Source Oral Pulse Rate 75 73 Respiratory Rate 16 16 Respiratory Effort Normal Non-Labored Respiratory Depth Normal Respiratory Pattern Normal Blood Pressure 102/53 L 130/85 H Blood Pressure Mean 69 100 Pulse Ox 99 98 Oxygen Delivery Method Room Air 11/18/24 20:33 Temperature 98.3 F Temperature Source Pulse Rate 73 Respiratory Rate 16 Respiratory Effort Respiratory Depth Respiratory Pattern Blood Pressure 130/85 H Blood Pressure Mean 100 Pulse Ox 98 Oxygen Delivery Method Positive well nourished and well developed General Appearance ED: well developed and NAD HEENT Reports normocephalic HEENT Narrative: There is mild tenderness and edema over the inferior orbital rim on the right. There is no bony crepitance or step-off noted. Eyes PERRL and EOMs intact bilaterally Neck full ROM and supple Chest Wall palpation of chest normal Resp normal respiratory effort and clear to auscultation bilaterally Cardio regular rate and regular rhythm GI non-tender and non-distended Palpation: soft Extremity Extremity Narrative: There is tenderness, edema, and ecchymosis over the dorsal aspect of the bilateral wrists and proximal metacarpals. There is no obvious deformity noted. Range of motion was limited in all motions of the wrist bilaterally secondary to pain. Strength is 5/5 in the radial, median, and ulnar areas. Sensation was intact to light touch in the radial, median, and ulnar areas. Radial pulses are equal bilaterally. Neuro oriented x3, CN's II-XII intact bilaterally, moves all extremities, no focal motor deficits and no sensory deficits noted Abhijeet Coma Scale: document GCS findings Spontaneous Obeys Commands Oriented 15 Sensorium / Orientation: alert Motor Exam: strength 5/5 throughout Psych mental status grossly normal and thought process normal Skin Skin Narrative: There are abrasions of the dorsal aspect of the bilateral hands, mainly over the 3rd and 4th digits. There is a superficial abrasion over the anterior aspect of the right knee. There is no active bleeding noted. Trauma: abrasion MDM MDM MDM Narrative Medical decision making narrative: Differential diagnosis includes facial contusion, knee abrasion, bilateral wrist fracture, contusion, and sprain. X-rays of the bilateral wrist will be obtained to assess for fracture. Radiography Diagnostic Testing: Clinical Impression(s) from Imaging Studies Wrist X-Ray 11/18/24 18:30 IMPRESSION: Possible ulnar and radial styloid nondisplaced fractures. Reading Location: [id number] Wrist X-Ray 11/18/24 18:30 IMPRESSION: No acute osseous abnormality. Degenerative changes and subchondral cysts as above. Osseous demineralization. Reading Location: [id number] X-rays of the right wrist were obtained. There are 3 views. On my independent interpretation, there is a nondisplaced fracture of the radial styloid and ulnar styloid. There is some soft tissue swelling. Radiologist also interpreted the x-rays and agrees. X-rays of the left wrist were obtained. There are 3 views. On my independent interpretation, there is a nondisplaced fracture at the proximal metaphyseal diaphyseal junction of the second metacarpal. There are cysts of the scaphoid bone. There are degenerative changes noted. Radiologist also interpreted the x-rays and agrees. Treatment and Re-Evaluation Narrative: Patient was given a tetanus booster. The abrasions were dressed. A well-padded custom made splint was applied to the volar aspect of the bilateral hand, wrist, and forearm using 3 inch Ortho-Glass. Neurovascular exam was intact before and after application of the splints. Patient was instructed to take Tylenol for pain. Patient was given a referral for orthopedics. Patient was instructed to return if worse in any way. Patient understood and was agreeable with the plan. All questions were answered. Procedures Upper Extremity Splints Upper Extremity Splint: Orthoglass and Volar Splint Fabrication: Fabricated Location: Right and Left Discharge Plan Triage Chief Complaint: Fall ED Provider: Johnny Sherwood Dx/Rx/DC Orders Clinical Impression: Closed fracture of distal end of left radius with ulna, Fall, Abrasion hand, Fracture of second metacarpal bone of right hand Instructions: ED Abrasion, ED Fracture, Wrist, General Prescriptions: No Action duloxetine [Cymbalta] 60 mg capsule,delayed release(DR/EC) 60 mg PO DAILY metoprolol succinate 25 mg tablet extended release 24 hr 25 mg PO DAILY 30 Days Qty: 90 3RF insulin glargine 100 unit/mL solution 30 unit SC QHS Patient Comments: LONG ACTING INSULIN pioglitazone 15 MG tablet 15 mg PO DAILY aspirin 81 MG tablet 81 mg PO DAILY@0800 empagliflozin 25 MG tablet 25 mg PO DAILY Patient Comments: take 1 tablet by mouth every morning metformin 500 mg tablet extended release 24 hr 1,000 mg PO BID Trulicity 3 mg/0.5 mL pen injector 3 mg SUBCUT .weekly Patient Comments: [NO ORIGINAL SIG] Rx Instructions: taken last 09/16/24 once a week polysaccharide iron complex [Ferrex 150] 150 mg iron Capsule 150 mg PO DAILY 30 Days Qty: 30 0RF rosuvastatin 40 mg tablet 40 mg PO DAILY Qty: 90 3RF clopidogrel [Plavix] 75 mg tablet 75 mg PO DAILY Qty: 90 3RF lisinopril 5 mg tablet 5 mg PO 1700 Qty: 90 3RF Primary Care Provider: Jaqueline Vo Referrals: Cooper Dupont MD [Med Staff - Active Staff] - 3-5 Days Jaqueline Vo MD [Primary Care Provider] - 1-2 Weeks Print Language: Kazakh Disposition Disposition: Home, Self Care Discharge Date/Time: 11/18/24 20:50
--- NOTE | 2024-11-18 18:30 | RAD_ITS ---
PROCEDURE: WRIST MIN 3 VIEWS 11/18/2024 REASON FOR EXAM: INJURY/PAIN TECHNIQUE: Three views of the right wrist. COMPARISON: None. FINDINGS: Lucency throughout both the radial and ulnar styloid processes which may represent nondisplaced fractures. Osseous demineralization. Degenerative changes of the wrist. RAD/Wrist min 3 Views IMPRESSION: Possible ulnar and radial styloid nondisplaced fractures. Reading Location: [id number]
--- NOTE | 2024-11-18 18:30 | RAD_ITS ---
PROCEDURE: WRIST MIN 3 VIEWS 11/18/2024 REASON FOR EXAM: INJURY/PAIN TECHNIQUE: Three views of the left wrist. COMPARISON: None. FINDINGS: Degenerative changes of the wrist. Large subchondral scaphoid cysts. Osseous demineralization. No evidence of acute fracture. RAD/Wrist min 3 Views IMPRESSION: No acute osseous abnormality. Degenerative changes and subchondral cysts as above. Osseous demineralization. Reading Location: [id number]
[2024-11-18 19:33] VITALS: BP 130/85; PULSE 73; RESP 16; O2SAT 98
[2024-11-18 20:33] VITALS: BP 130/85; PULSE 73; RESP 16; TEMP 36.8; O2SAT 98
== END 2024-11-18 20:50 | disposition home or self-care (01) ==
PROVIDERS: Emergency Provider Emergency Medicine; PCP Internal Medicine; Visit Provider Emergency Medicine
DX: S52.514A Nondisplaced fracture of right radial styloid process, initial encounter for closed fracture (principal); Z79.4 Long term (current) use of insulin; S62.351A Nondisplaced fracture of shaft of second metacarpal bone, left hand, initial encounter for closed fracture; S52.614A Nondisplaced fracture of right ulna styloid process, initial encounter for closed fracture; Z23 Encounter for immunization; S80.211A Abrasion, right knee, initial encounter; S60.512A Abrasion of left hand, initial encounter; S60.511A Abrasion of right hand, initial encounter; I25.10 Atherosclerotic heart disease of native coronary artery without angina pectoris; E78.00 Pure hypercholesterolemia, unspecified; W18.30XA Fall on same level, unspecified, initial encounter; I10 Essential (primary) hypertension; Z79.82 Long term (current) use of aspirin; Z79.02 Long term (current) use of antithrombotics/antiplatelets; Z79.84 Long term (current) use of oral hypoglycemic drugs; Z79.85 Long-term (current) use of injectable non-insulin antidiabetic drugs; Z79.899 Other long term (current) drug therapy; I25.2 Old myocardial infarction
CPT/HCPCS: 29125; 29405; 73110; 99283

== ENCOUNTER → 2024-11-27 | Outpatient (CLI) | payer MEDICARE, SELFPAY ==
--- NOTE | 2024-11-27 15:40 | MRI_ITS ---
PROCEDURE: UPPER EXT JOINT ONLY(ROUTINE) 11/27/2024 REASON FOR EXAM: PAIN, MULTIPLE FRACTURES TECHNIQUE: UPPER EXT JOINT ONLY(ROUTINE) Multiplanar and multisequence images were obtained without IV contrast administration. COMPARISON: COMPARISON : FINDINGS: Bone Marrow: Effusion: Degenerative changes of the wrist. Large subchondral scaphoid cysts. Osseous demineralization. T2 hyperintense with T1 hypointense signal in the bone marrow of the triquetral bone similar signal alteration in the capitate. This could represent microfracture versus bone marrow edema from osteoarthritis versus edema from some other etiology. Large geode is seen in the scaphoid at the scaphoid appears abnormally flattened the lunate is also deformed and flattened. There is only minor, mild T2 hyperintense, T1 hypointense signal in the lunate. The proximal row of carpal bones appear chronically deformed and flattened. The 2nd row of carpal bones relatively intact architecture. Moderate-size geode in the capitate Constellation of findings indicate remote injury, but no definite acute osseous abnormality. Ligaments and Tendons: Carpal tunnel tendons and extensor tendons appear unremarkable. The scapholunate ligaments appear torn MRI/Upper Ext Joint Only(Routine) IMPRESSION: Chronic deformities of the 1st row of carpal bones suggesting remote injury. Reading Location: [id number]
== END | disposition home or self-care (01) ==
LOC: OPMRI 15:37
PROVIDERS: PCP Internal Medicine; Referring Provider Nurse Practitioner Family; Visit Provider Nurse Practitioner Family
DX: S52.502A Unspecified fracture of the lower end of left radius, initial encounter for closed fracture (principal); S52.602A Unspecified fracture of lower end of left ulna, initial encounter for closed fracture; S62.623A Displaced fracture of middle phalanx of left middle finger, initial encounter for closed fracture; S62.311A Displaced fracture of base of second metacarpal bone, left hand, initial encounter for closed fracture; X58.XXXA Exposure to other specified factors, initial encounter
CPT/HCPCS: 73221

== ENCOUNTER → 2025-01-13 | Outpatient (CLI) | payer MEDICARE, SELFPAY ==
[2025-01-13 12:35] LABS: Hematocrit 35.0 % (37-47); Hemoglobin 10.0 g/dL (12.0-15.0); Immature Granulocytes Count 0.040 X10^3/uL (0.0-0.0); Mean Corp Hgb Conc 28.6 g/dL (32-36); Mean Corpuscular Volume 67.2 fL (81-99); Mean Platelet Vol. 10.8 fl (6.2-12.0); NRBC Flagged by Analyzer 0 % (0-5); POSITIVE MORPHOLOGY YES; Platelet Count 373 K/mm3 (150-450); RBC Distribution Width CV 20.7 % (11.6-14.6); RBC Distribution Width SD 47.2 fl (35.1-43.9); Red Blood Count 5.21 M/mm3 (4.2-5.4); White Blood Count 11.0 K/mm3 (4.4-11.0)
[2025-01-13 12:36] LABS: Differential Indicated SCAN CRITERIA MET
[2025-01-13 13:08] LABS: Anion Gap 15 (5-15); BUN 8 mg/dL (4-19); BUN/Creat Ratio 15.0 RATIO (10-20); Calcium,Total 9.4 mg/dL (7.6-11.0); Carbon Dioxide 21.0 mmol/L (21.0-32.0); Chloride 106 mmol/L (98-108); Glucose 142 mg/dL (70-99); Potassium 4.3 mmol/L (3.3-5.1)
[2025-01-13 14:30] LABS: Anisocytosis 1+; Polychromasia 1+
== END | disposition home or self-care (01) ==
LOC: LAB 11:52
PROVIDERS: PCP Internal Medicine; Referring Provider Nurse Practitioner Gerontology; Visit Provider Nurse Practitioner Gerontology
DX: R42 Dizziness and giddiness (principal)
CPT/HCPCS: 36415; 80048; 85025

== ENCOUNTER → 2025-02-05 | Outpatient (CLI) | payer MEDICARE, SELFPAY ==
--- NOTE | 2025-02-05 10:47 | ECHOD_ITS ---
Reason For Study Reason For Study: CARDIOMYOPATHY Procedure This was a 2D Doppler, Color Flow transthoracic echocardiogram. Exam performed in department. Left Ventricle Normal LV size. The left ventricular ejection fraction is 55 %. Infero-Basal: Hypokinetic. Right Ventricle Normal RV size. Normal systolic function. Atria The left atrium is mildly enlarged. Normal right atrium. Mitral Valve Normal mitral valve. Mild-Moderate (1-2+) eccentric mitral valve insufficiency. Tricuspid Valve Normal tricuspid valve. Mild tricuspid valve insufficiency. Aortic Valve Trisinus/trileaflet aortic valve. Mild focal aortic valve calcification. Pulmonic Valve Normal pulmonic valve. Great Vessels Normal aortic root. The pulmonary artery is normal size. Inferior vena cava collapse with respiration. Pericardium/Pleural No pericardial effusion. MMode/2D Measurements & Calculations LVIDd: 5.6 cm IVSd: 1.0 cm CO(Teich): 5.0 l/min LVIDs: 4.3 cm LVPWd: 0.98 cm RVDd: 3.7 cm FS: 22.5 % Ao root diam: 3.8 cm LAV(MOD-bp): 82.5 ml LVAd ap4: 30.6 cm2 LAV(MOD-bp) Indexed: 46.6 ml/m2 LVLd ap4: 7.1 cm LAV(MOD-sp2): 75.6 ml EDV(MOD-sp4): 111.8 ml LAV(MOD-sp4): 75.9 ml EDV(sp4-el): 112.0 ml LVAs ap4: 18.7 cm2 LVLs ap4: 5.7 cm ESV(MOD-sp4): 50.6 ml ESV(sp4-el): 52.0 ml EF(MOD-sp4): 54.7 % EF(sp4-el): 53.6 % LVAd ap2: 28.0 cm2 CO(MOD-sp4): 4.4 l/min SV(MOD-sp2): 46.7 ml LVLd ap2: 7.2 cm SV(MOD-sp4): 61.2 ml SI(MOD-sp2): 26.4 ml/m2 EDV(MOD-sp2): 92.9 ml SI(MOD-sp4): 34.6 ml/m2 EDV(sp2-el): 92.4 ml LVAs ap2: 18.6 cm2 LVLs ap2: 6.3 cm ESV(MOD-sp2): 46.2 ml ESV(sp2-el): 46.4 ml EF(MOD-sp2): 50.3 % SV(sp4-el): 60.1 ml LA dimension(2D): 4.5 cm LA A4 area: 23.4 cm2 RA A4 area: 11.1 cm2 TAPSE: 1.7 cm Doppler Measurements & Calculations Lat Peak E' Sacha: 13.6 cm/sec Med Peak E' Sacha: 6.8 cm/sec MV V2 max: 125.5 cm/sec MV max P.3 mmHg MV V2 mean: 64.5 cm/sec MV mean P.1 mmHg MV V2 VTI: 28.7 cm MV P1/2t max ascha: 124.2 cm/sec Ao V2 max: 148.2 cm/sec LV V1 max: 113.0 cm/sec MV P1/2t: 33.6 msec Ao max P.8 mmHg LV V1 max P.1 mmHg MV dec slope: 1085 cm/sec2 Ao V2 mean: 105.7 cm/sec LV V1 mean P.6 mmHg Ao mean P.9 mmHg LV V1 mean: 76.8 cm/sec MVA(P1/2t): 6.6 cm2 Ao V2 VTI: 30.5 cm LV V1 VTI: 21.5 cm AV (velocity ratio): 0.70 MR max sacha: 493.9 cm/sec PA V2 max: 117.4 cm/sec MR max P.6 mmHg PA V2 mean: 86.5 cm/sec MR mean sacha: 397.4 cm/sec MR mean P.5 mmHg MR VTI: 158.2 cm ECHO/Echo Complete Interpretation Summary Normal LV size. The left ventricular ejection fraction is 55 %. The left atrium is mildly enlarged. Infero-Basal: Hypokinetic Ordering Physician: Sejal Jay Referring Physician: Jaqueline Vo Performed By: Heather Echeverria, TOMEKA, RVT
== END | disposition home or self-care (01) ==
PROVIDERS: PCP Internal Medicine; Referring Provider Nurse Practitioner Gerontology; Visit Provider Nurse Practitioner Gerontology
DX: R06.02 Shortness of breath (principal); I42.9 Cardiomyopathy, unspecified
CPT/HCPCS: 93306